=== PATIENT | male | born 1965 | race Caucasian/White ===

== ENCOUNTER 2018-02-06 20:28 | Observation (INO) | payer SELFPAY ==
--- NOTE | 2018-02-06 21:02 | RADIOLOGY REPORT (SQ) ---
EXAM DESCRIPTION: CHEST SINGLE VIEW COMPLETED DATE/TIME: 02/06/2018 8:49 pm REASON FOR STUDY: cp COMPARISON: 12/18/2011. EXAM PARAMETERS: NUMBER OF VIEWS: One view. TECHNIQUE: Single frontal radiographic view of the chest acquired. RADIATION DOSE: NA LIMITATIONS: None. FINDINGS: LUNGS AND PLEURA: No opacities, masses or pneumothorax. No pleural effusion. MEDIASTINUM AND HILAR STRUCTURES: No masses. Contour normal. HEART AND VASCULAR STRUCTURES: Heart normal in size. Normal vasculature. BONES: No acute findings. HARDWARE: None in the chest. OTHER: No other significant finding. IMPRESSION: NO ACUTE RADIOGRAPHIC FINDING IN THE CHEST. TECHNICAL DOCUMENTATION: JOB ID: [id number] [employer]- All Rights Reserved Reading location - IP/workstation name: [email or web address]
[2018-02-06 21:34] LABS: ABSOLUTE EOSINOPHILS # (AUTO) 0.1 10^3/uL (0.0-0.6); ABSOLUTE LYMPHOCYTES (AUTO) 1.6 10^3/uL (0.5-4.7); ABSOLUTE MONOCYTES (AUTO) 0.7 10^3/uL (0.1-1.4); ABSOLUTE NEUT (AUTO) 2.3 10^3/uL (1.7-8.2); BASOPHILS % (AUTO) 0.8 % (0-2); EOSINOPHILS % (AUTO) 1.8 % (0-6); HEMATOCRIT 43.8 % (37.9-51.0); HEMOGLOBIN 15.3 g/dL (13.5-17.0); LYMPHOCYTES % (AUTO) 34.3 % (13-45); MEAN CORPUSCULAR HEMOGLOBIN 29.8 pg (27.0-33.4); MEAN CORPUSCULAR VOLUME 85 fl (80-97); RED BLOOD COUNT 5.14 10^6/uL (4.35-5.55); RED CELL DISTRIBUTION WIDTH 13.6 % (11.5-14.0); SEGMENTED NEUTROPHILS % (AUTO) 49.1 % (42-78); TOTAL CELLS COUNTED % (AUTO) 100 %; WHITE BLOOD COUNT 4.6 10^3/uL (4.0-10.5)
[2018-02-06 21:35] LABS: PLATELET COUNT 91 10^3/uL (150-450)
[2018-02-06 21:53] LABS: ALANINE AMINOTRANSFERASE 45 U/L (21-72); ALBUMIN 4.3 g/dL (3.5-5.0); ALKALINE PHOSPHATASE 174 U/L (38-126); ANION GAP 10 (5-19); ASPARTATE AMINO TRANSFERASE 64 U/L (17-59); BILIRUBIN,DIRECT 0.3 mg/dL (0.0-0.4); BILIRUBIN,TOTAL 0.7 mg/dL (0.2-1.3); BLOOD UREA NITROGEN 9 mg/dL (7-20); CALCIUM 9.5 mg/dL (8.4-10.2); CARBON DIOXIDE 26 mmol/L (22-30); CHLORIDE 99 mmol/L (98-107); CREATINE KINASE 405 U/L (55-170); GLUCOSE 270 mg/dL (75-110); POTASSIUM 4.4 mmol/L (3.6-5.0); TOTAL PROTEIN 7.2 g/dL (6.3-8.2)
--- NOTE | 2018-02-06 22:02 | EKG REPORT ---
SEVERITY:- NORMAL ECG - SINUS RHYTHM : Confirmed by: Vy Mcclain 06-Feb-2018 22:01:54
[2018-02-06 22:04] LABS: CREATINE KINASE MB 1.17 ng/mL (<4.55)
--- NOTE | 2018-02-06 22:05 | ER Document Report ---
ED General - General Chief Complaint: Chest Pain Stated Complaint: CHEST PAIN Time Seen by Provider: 02/06/18 20:33 Mode of Arrival: Ambulatory Information source: Patient, Relative - /daughter TRAVEL OUTSIDE OF THE [place] IN LAST 30 DAYS: No - HPI Patient complains to provider of: chest pain Onset: This afternoon Onset/Duration: Sudden Quality of pain: Pressure Severity: Moderate Associated symptoms: Shortness of breath, Other - diaphoresis Exacerbated by: Other - mowing the lawn Similar symptoms previously: No Recently seen / treated by doctor: No Notes: 52-year-old obese diabetic hypertensive male presents emergency department for chest pain. He states that he was mowing the lawn around 130 today when he got pressure-like chest pain in the center of his chest radiating down his left arm associated with shortness of breath and diaphoresis. Patient states when he stopped mowing the lawn the pain seemed to subside. He states that he does not walk daily 3-4 miles and he did decide to go for his walk around 3 PM today. He states he got through half of it and the pain returned again. He stopped walking and went back home. He states he ate dinner around 5 and then for a third time during the day he got chest pressure again. 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 He states years ago he had a nuclear stress test. He has never had a cardiac catheterization. He is seen at [facility]. Does not drink at all. Patient has a heavy remote history of alcohol intake and he has esophageal varices. He states he does not take aspirin or anticoagulation for this. Patient does state that he has a history of a PE a few years back. - Related Data Allergies/Adverse Reactions: Iodinated Contrast- Oral and IV Dye [IV Dye, Iodine Containing] Allergy ( Verified 09/06/14 00:37) Past Medical History - General Information source: Patient, Relative - Social History Smoking Status: Never Smoker Chew tobacco use (# tins/day): No Frequency of alcohol use: None - patoient is an alcoholic and has been sober 20 + years Drug Abuse: None Lives with: Family Family History: DM, Hypertension, Malignancy Patient has suicidal ideation: No Patient has homicidal ideation: No - Past Medical History Cardiac Medical History: Reports: Hx Hypertension, Hx Pulmonary Embolism Denies: Hx Congestive Heart Failure, Hx Coronary Artery Disease, Hx DVT, Hx Heart Attack, Hx Peripheral Vascular Disease, Hx Heart Murmur Pulmonary Medical History: Reports: Other - PE Denies: Hx Tuberculosis EENT Medical History: Reports: None Neurological Medical History: Reports: None Endocrine Medical History: Reports: Hx Diabetes Mellitus Type 2 Renal/ Medical History: Reports: Hx Kidney Stones. Denies: Hx Peritoneal Dialysis GI Medical History: Reports: Hx Gastroesophageal Reflux Disease, Other - esophageal varices Musculoskeltal Medical History: Reports Hx Arthritis Psychiatric Medical History: Reports: Hx Depression - Immunizations Immunizations up to date: Yes Hx Diphtheria, Pertussis, Tetanus Vaccination: Yes Hx Pneumococcal Vaccination: 11/26/13 Review of Systems - Review of Systems Constitutional: Diaphoresis EENT: No symptoms reported Cardiovascular: See HPI Respiratory: See HPI Gastrointestinal: No symptoms reported Genitourinary: No symptoms reported Male Genitourinary: No symptoms reported Musculoskeletal: No symptoms reported Skin: No symptoms reported Hematologic/Lymphatic: No symptoms reported Neurological/Psychological: No symptoms reported Physical Exam - Vital signs Vitals: Resp 13 02/06/18 20:39 - Notes Notes: PHYSICAL EXAMINATION: GENERAL: Well-appearing, well-nourished and in no acute distress. No active chest pain when seen and examined HEAD: Atraumatic, normocephalic. EYES: Pupils equal round and reactive to light, extraocular movements intact, sclera anicteric, conjunctiva are normal. ENT: Nares patent, oropharynx clear without exudates. Moist mucous membranes. NECK: Normal range of motion, supple without lymphadenopathy LUNGS: Breath sounds clear to auscultation bilaterally and equal. No wheezes rales or rhonchi. HEART: Regular rate and rhythm without murmurs ABDOMEN: Obese, soft, nontender, nondistended abdomen. No guarding, no rebound. No masses appreciated. Musculoskeletal: Normal range of motion, no pitting or edema. No cyanosis. NEUROLOGICAL: Cranial nerves grossly intact. Normal speech, normal gait. Normal sensory, motor exams PSYCH: Normal mood, normal affect. SKIN: Warm, Dry, normal turgor, no rashes or lesions noted. Course - Re-evaluation Re-evalutation: 02/06/18 22:38 Patient aware of disposition and agreeable to the plan. Continues to be chest pain-free. 02/06/18 22:39 Labs- All tests 24 hr 02/06/18 02/06/18 02/06/18 21:05 21:05 21:05 WBC 4.6 RBC 5.14 Hgb 15.3 Hct 43.8 MCV 85 MCH 29.8 MCHC 35.0 RDW 13.6 Plt Count 91 L Seg Neutrophils % 49.1 Lymphocytes % 34.3 Monocytes % 14.0 H Eosinophils % 1.8 Basophils % 0.8 Absolute Neutrophils 2.3 Absolute Lymphocytes 1.6 Absolute Monocytes 0.7 Absolute Eosinophils 0.1 Absolute Basophils 0.0 Sodium 135.0 L Potassium 4.4 Chloride 99 Carbon Dioxide 26 Anion Gap 10 BUN 9 Creatinine 0.62 Est GFR ( Amer) > 60 Est GFR (Non-Af Amer) > 60 Glucose 270 H Calcium 9.5 Total Bilirubin 0.7 Direct Bilirubin 0.3 Neonat Total Bilirubin Not Reportable Neonat Direct Bilirubin Not Reportable Neonat Indirect Bili Not Reportable AST 64 H ALT 45 Alkaline Phosphatase 174 H Creatine Kinase 405 H CK-MB (CK-2) 1.17 Troponin I 0.060 Total Protein 7.2 Albumin 4.3 Chest X-Ray 02/06/18 20:33 IMPRESSION: NO ACUTE RADIOGRAPHIC FINDING IN THE CHEST. - Vital Signs Vital signs: Temp Pulse Resp BP Pulse Ox 19 138/80 H 100 02/06/18 21:02 02/06/18 21:02 02/06/18 21:02 - Laboratory Result Diagrams: 02/06/18 21:05 02/06/18 21:05 Laboratory results interpreted by me: 02/06/18 02/06/18 21:05 21:05 Plt Count 91 L Monocytes % 14.0 H Sodium 135.0 L Glucose 270 H AST 64 H Alkaline Phosphatase 174 H Creatine Kinase 405 H - EKG Interpretation by Ar EKG shows normal: Sinus rhythm - 91 When compared to previous EKG there are: No significant change Discharge - Discharge Clinical Impression: Chest heaviness, Obesity, Uncontrolled diabetes mellitus Disposition: ADMITTED OBSERVATION Admitting Provider: Hospitalist - Dr. Faustin Unit Admitted: Telemetry
[2018-02-06 22:08] LABS: TROPONIN I 0.06 ng/mL
[2018-02-06] MEDS ORDERED: NORMAL SALINE 1000 ML 1,000 ML IV ONE (22:13)
[2018-02-06] MEDS ORDERED: INSULIN REG, HUMAN 100 UNIT/ML 3 ML VIAL (PYX) SUBCUT ONE (22:33)
[2018-02-06] MEDS ORDERED: DEXTROSE 50%-WATER 25 GM/50 ML DISP.SYRIN IV PRN ×4 (22:54→23:03)
[2018-02-06] MEDS ORDERED: GLUCAGON,HUMAN RECOMB 1 MG INJ SUBCUT PRN (22:54)
[2018-02-06] MEDS ORDERED: DEXTROSE 40% GEL 15 GM TUBE PO PRN ×4 (22:54→23:03)
[2018-02-06] MEDS ORDERED: ACETAMINOPHEN 325 MG TABLET PO PRN (22:54)
[2018-02-06] MEDS ORDERED: PROMETHAZINE HCL INJ 25 MG/1 ML VIAL IV PRN (22:54)
[2018-02-06] MEDS ORDERED: GLUCAGON,HUMAN RECOMB 1 MG INJ IM PRN (23:03)
[2018-02-07 03:30] LABS: ANION GAP 10 (5-19); BLOOD UREA NITROGEN 9 mg/dL (7-20); CALCIUM 9.2 mg/dL (8.4-10.2); CARBON DIOXIDE 23 mmol/L (22-30); CHLORIDE 105 mmol/L (98-107); CHOLESTEROL 217.77 mg/dL (0-200); GLUCOSE 139 mg/dL (75-110); POTASSIUM 3.9 mmol/L (3.6-5.0); TRIGLYCERIDES 159 mg/dL (<150)
[2018-02-07 03:39] LABS: VLDL CHOLESTEROL 31.8 mg/dL (10-31)
[2018-02-07 03:41] LABS: DIRECT LDL 176 mg/dL (<100)
[2018-02-07 03:58] LABS: HEMATOCRIT 42.4 % (37.9-51.0); HEMOGLOBIN 14.8 g/dL (13.5-17.0); MEAN CORPUSCULAR HEMOGLOBIN 29.8 pg (27.0-33.4); MEAN CORPUSCULAR VOLUME 85 fl (80-97); RED BLOOD COUNT 4.98 10^6/uL (4.35-5.55); RED CELL DISTRIBUTION WIDTH 13.6 % (11.5-14.0)
[2018-02-07 03:59] LABS: PLATELET COUNT 84 10^3/uL (150-450)
[2018-02-07] MEDS ORDERED: HYDRALAZINE HCL INJ/PF 20 MG/1 ML SDV IV PRN (04:43)
--- NOTE | 2018-02-07 04:56 | PDOC H&P ---
History of Present Illness Admission Date/PCP: 02/06/18 22:49 Patient complains of: Several episodes of chest pain today. History of Present Illness: MICHEL YOST is a 52 year old male morbidly obese with history of hypertension, type 2 diabetes mellitus and hyperlipidemia, noncompliance with his medication for financial reasons was admitted with above-mentioned complaints. According to the patient, he started eeling chest pressure around 1 :30 PM after mowing his lawn for 10 minutes. The pain was radiating down his arm and up to his jaw. It was relieved when he rested. And later that afternoon, he went for his usual 3-4 miles walk but long term through he had to stop since he felt the same chest pressure. It was relieved after he went back home and rested. And around 7:00 - 8:00 PM, he started having chest pressure again while at rest. But this time his hands were sweaty and he felt nauseous but did not vomit. He also felt some shortness of breath, palpitations and lightheadedness but he denied any syncope. The patient apparently has also been having intermittent headaches and bloody nose in the last couple of weeks which he thinks it is due to probably elevated blood pressure. He denied any fever, chills, cough or sick contact or recent travels. He also denied any abdominal pain, diarrhea constipation or any urinary symptoms or focal deficits. He apparently had similar chest pain in the past for which he had a stress test which showed "blood clot" per patient (? referring to PE). He has history of alcoholism and esophageal varices but he never had any GI bleed. However, he was told not to take any anticoagulants so he refused to take aspirin. In the ED, he was hemodynamically stable. His initial troponin was 0.06 chest x- ray was unremarkable. His blood sugar was 270. He received 6 units humolog x1. He is currently chest pain free. Past Medical History Medical History: Other - According to the patient and based on previous records. Cardiac Medical History: Reports: None, Hypertension, Pulmonary Embolism Denies: Congestive Heart Failure, Coronary Artery Disease, DVT, Myocardial Infarction, Peripheral Vascular Disease, Heart Murmur Pulmonary Medical History: Reports: Other - PE Denies: Tuberculosis EENT Medical History: Reports: None Neurological Medical History: Reports: None Endocrine Medical History: Reports: Diabetes Mellitus Type 2 GI Medical History: Reports: Gastroesophageal Reflux Disease, Other - esophageal varices Musculoskeltal Medical History: Reports: Arthritis Psychiatric Medical History: Reports: Depression Past Surgical History Past Surgical History: Reports: None Social History Lives with: Family Smoking Status: Never Smoker Cigarettes Packs Per Day: 0 Frequency of Alcohol Use: None - To be an alcoholic but quit more than 20 years ago. Hx Recreational Drug Use: No Hx Prescription Drug Abuse: No - Advance Directive Resuscitation Status: Full Code Family History Family History: DM, Hypertension, Malignancy Parental Family History Reviewed: Yes - Brother: CAD post CABG 3 and type 2 diabetes. Children Family History Reviewed: No Sibling(s) Family History Reviewed.: Yes Medication/Allergy Home Medications: Oxycodone HCl [Oxy-Ir 5 mg Tablet] 5 mg PO Q6HP PRN #10 tab 09/06/14 Allergies/Adverse Reactions: Iodinated Contrast- Oral and IV Dye [IV Dye, Iodine Containing] Allergy ( Verified 09/06/14 00:37) Review of Systems ROS unobtainable: Other - Pertinent positives and negatives as detailed in the HPI. Physical Exam Vital Signs: Temp Pulse Resp BP Pulse Ox 19 138/80 H 100 02/06/18 21:02 02/06/18 21:02 02/06/18 21:02 General appearance: PRESENT: no acute distress, well-developed, well-nourished Head exam: PRESENT: atraumatic, normocephalic Eye exam: PRESENT: conjunctiva pink, PERRLA Mouth exam: PRESENT: moist, neck supple, tongue midline Neck exam: PRESENT: full ROM. ABSENT: JVD Respiratory exam: PRESENT: clear to auscultation lizandro. ABSENT: rales, rhonchi, wheezes Cardiovascular exam: PRESENT: RRR, +S1, +S2 Pulses: PRESENT: normal dorsalis pedis pul GI/Abdominal exam: PRESENT: normal bowel sounds, soft. ABSENT: distended, guarding, rebound, tenderness Rectal exam: PRESENT: deferred Neurological exam: PRESENT: alert, altered, awake, oriented to person, oriented to place, oriented to time, oriented to situation. ABSENT: motor sensory deficit Skin exam: PRESENT: dry, intact, warm. ABSENT: rash Results Laboratory Results: CBC: WBC 4.6, hemoglobin 15.3, hematocrit 43.8, MCV 85, RDW 13.6, platelets 91. CMP: Sodium 135, potassium 4.4, chloride 99, bicarb 26, anion gap 10, BUN 9, creatinine 0.62, glucose 270, calcium 9.5, AST 64, ALT 45, alk phos 174. Troponin 1: 0.06 EKG Comments: Lead EKG, sinus rhythm, ventricular rate 90, [place] 0, flat T-wave in lead III. Similar when compared to be previous 12-lead EKG on 09/06/2014 Impressions: Chest X-Ray 02/06/18 20:33 IMPRESSION: NO ACUTE RADIOGRAPHIC FINDING IN THE CHEST. Assessment & Plan - Diagnosis (1) Unstable angina Is this a current diagnosis for this admission?: Yes Plan: We will continue to cycle cardiac enzymes and repeat 12-lead EKG. We will also check echocardiogram and fasting lipid profile. If 2 negative troponins, he will have a nuclear stress test in a.m. He may need a cardiac cath. (2) Essential hypertension Is this a current diagnosis for this admission?: Yes Plan: Not on any blood pressure medications for financial reasons. We will continue to monitor his blood pressure and adjust BP meds as needed. IV hydralazine as needed. (3) Type 2 diabetes mellitus Qualifiers: Diabetes mellitus penitentiary insulin use: without intermodal dispatcher use Diabetes mellitus complication status: with unspecified complications Qualified Code(s) : E11.8 - Type 2 diabetes mellitus with unspecified complications Is this a current diagnosis for this admission?: Yes Plan: Michael check HbA1c and start Humalog sliding scale. (4) Thrombocytopenia Is this a current diagnosis for this admission?: Yes Plan: Possibly secondary to liver disease. The patient has history of alcoholism and esophageal varices. Will check liver ultrasound. - Time Time Spent: 50 to 70 Minutes Anticipated discharge: Home
[2018-02-07] MEDS: LANSOPRAZOLE 30 MG TAB.RAP.DR PO SCH ×2 (06:00→11:32)
--- NOTE | 2018-02-07 08:34 | RADIOLOGY REPORT (SQ) ---
EXAM DESCRIPTION: U/S ABDOMEN COMPLETE W/O DOP COMPLETED DATE/TIME: 02/07/2018 7:27 am REASON FOR STUDY: thrombocytopenia (questionable cirrhosis). COMPARISON: 12/19/2011. TECHNIQUE: Dynamic and static grayscale images acquired of the abdomen and recorded on PACS. Janeto delilah selected color Doppler and spectral images recorded. LIMITATIONS: Study limited due to acoustical interference from fat or from air in the bowel. FINDINGS: PANCREAS: Obscured. LIVER: Echotexture is coarse with increased echogenicity consistent with fatty infiltration. LIVER VASCULATURE: Normal directional flow of the main portal vein and hepatic veins. GALLBLADDER: No stones. Normal wall thickness. No pericholecystic fluid. ULTRASOUND-DETECTED MCGARRY'S SIGN: Negative. INTRAHEPATIC DUCTS AND COMMON DUCT: CBD and intrahepatic ducts normal caliber. No filling defects. INFERIOR VENA CAVA: Normal flow. AORTA: No aneurysm. RIGHT KIDNEY: Normal size. Normal echogenicity. No solid or suspicious masses. No hydronephrosis. No calcifications. LEFT KIDNEY: Normal size. Normal echogenicity. No solid or suspicious masses. No hydronephrosis. No calcifications. SPLEEN:Slightly enlarged, measuring 13.3 cm. No solid masses. PERITONEAL AND PLEURAL SPACES: No ascites or effusions. OTHER: No other significant finding. IMPRESSION: FATTY INFILTRATION OF THE LIVER. MILD SPLENOMEGALY. NO OTHER SIGNIFICANT FINDING IN TH E VISUALIZED ABDOMEN. TECHNICAL DOCUMENTATION: JOB ID: [id number] [employer]- All Rights Reserved Reading location - IP/workstation name: [email or web address]
[2018-02-07] MEDS ORDERED: ENOXAPARIN SODIUM INJ 40 MG/0.4 ML DISP.SYRIN SUBCUT SCH (10:00)
[2018-02-07] MEDS: INSULIN LISPRO 100 UNIT/ML 3 ML VIAL SUBCUT PRN ×3 (11:31→22:17)
--- NOTE | 2018-02-07 13:46 | DRAGON STRESS TEST REPORT ---
INTRAVENOUS LEXISCAN CARDIOLITE STRESS TEST USING SINGLE PHOTON EMMISION COMPUTERIZED TOMOGRAPHIC. DATE OF PROCEDURE: February 07, 2018, INDICATION : Diabetes, hypertension CARDIAC RISK FACTORS: Diabetes, hypertension, obesity RESTING EKG: Sinus rhythm without any baseline ST-T wave changes STRESS EKG: No significant changes noted with LexiScan bolus REASON FOR TERMINATION: Protocol. PROCEDURE REPORT: Baseline heart rate 89 beats per minute with blood pressure of 166/77. Patient had no significant complaints. Heart rate at 2 minutes post bolus 107 with a blood pressure of 171/78. 3 minutes post bolus heart rate 100 with blood pressure of 178/78. No significant EKG changes were noted. Patient had no significant complaints during the procedure or postprocedure. Patient injected with Aminophyllin 75 mg at 3 minutes or later after Lexiscan bolus. CONCLUSIONS: Normal EKG and hemodynamic response to IV LexiScan. NUCLEAR DATA: At rest the patient was given 15.95 millicuries of technetium 99 sestamibi injected intravenously. As per protocol rest gated SPECT images were obtained. On day of stress test, the patient was given intravenous LexiScan at a dose of 0.4 mg in 5 mL intravenously, followed by flush with normal saline. Subsequently the stress dose of 43.5 millicuries of technetium 99 sestamibi was injected intravenously. As per protocol stress gated images were obtained. NUCLEAR INTERPRETATION: Both raw and processed data were used for interpretation. Visual, qualitative, computer-generated quantitative data was used. There was good myocardial uptake of technetium compound. Motion artifact and soft tissue attenuations were noted. Increased visceral uptake was noted. An area of mild transient perfusion defect noted in stress imaging in the LV apex consistent with mild ischemia. No definitive areas of fixed perfusion defect or scars noted. EKG gated imaging showed LV EF at 59 %, rest and stress gated EF similar visually, no definite regional wall motion abnormalities were however noted. T. I D. ratio was 0.98. Lung heart ratio noted to be within normal limits 0.39. No significant extracardiac and abnormal radiotracer activities were noted. RV free wall uptake was noted to be WNL. IMPRESSION: Also refer to comments under nuclear interpretation. Also test results needs to be interpreted in the context of pretest probability. 1. An area of mild transient perfusion defect noted in stress imaging in the LV apex consistent with mild ischemia 2. There is no definitive scintigraphic evidence of myocardial infarction/scar. 3. EKG gated imaging shows left ventricular ejection fraction of approx. 59 %. 4. Clinical correlation requested as occasionally single vessel disease or balanced ischemia could be missed. In approximately 10% of the cases Lexiscan may not cause adequate vasodilatory stress. RECOMMENDATIONS: Aggressive risk factor modification and medical management. Further evaluation may be needed if continued symptoms or other high risk indicators are noted on clinical evaluation. May consider heart catheterization. Close cardiology follow-up is also recommended. Clinical correlation with echocardiogram derived ejection fraction. Inability to exercise by itself can lead to increased cardiovascular event risks. Consider cardiology consultation and or follow-up if clinically indicated. I am available for cardiology evaluation and consultation if requested by the wire spinner, unless patient already has a command post craftsman. ISABEL
[2018-02-07] MEDS ORDERED: REGADENOSON INJ 0.4 MG/5 ML DISP.SYRIN IV ONE (14:13)
[2018-02-07] MEDS ORDERED: AMINOPHYLLINE INJ/PF 250 MG/10 ML SDV IV ONE (14:13)
--- NOTE | 2018-02-07 17:40 | PDOC PROGRESS REPORT ---
Subjective Progress Note for:: 02/07/18 Subjective:: Patient is chest pain-free. When getting up to the restroom he is not having chest pain. He is eating and drinking without difficulty. No cough or fever or chills. Reticulocyte type chest pain. No abdominal pain nausea vomiting or diaphoresis today. Reason For Visit: CHEST PAIN Physical Exam Vital Signs: Temp Pulse Resp BP Pulse Ox 98.2 F 71 17 120/76 97 02/07/18 16:00 02/07/18 16:00 02/07/18 16:00 02/07/18 16:00 02/07/18 16:00 Intake & Output 02/06/18 02/07/18 02/08/18 06:59 06:59 06:59 Weight 127.3 kg 127.3 kg General appearance: PRESENT: no acute distress, cooperative, obese Eye exam: PRESENT: conjunctiva pink Ear exam: PRESENT: normal external ear exam Mouth exam: PRESENT: moist, neck supple Respiratory exam: PRESENT: clear to auscultation lizandro, unlabored. ABSENT: rales , rhonchi, wheezes Cardiovascular exam: PRESENT: RRR. ABSENT: systolic murmur Pulses: PRESENT: normal radial pulses GI/Abdominal exam: PRESENT: normal bowel sounds, soft. ABSENT: distended, guarding, tenderness Rectal exam: PRESENT: deferred Neurological exam: PRESENT: alert, awake, oriented to person, oriented to place , oriented to situation, CN II-XII grossly intact Psychiatric exam: PRESENT: appropriate affect. ABSENT: anxious Skin exam: PRESENT: dry, warm Results Laboratory Results: 02/07/18 02:55 02/07/18 02:55 02/07/18 02/07/18 02:55 02:55 WBC 5.0 RBC 4.98 Hgb 14.8 Hct 42.4 MCV 85 MCH 29.8 MCHC 35.0 RDW 13.6 Plt Count 84 L Sodium 138.0 Potassium 3.9 Chloride 105 Carbon Dioxide 23 Anion Gap 10 BUN 9 Creatinine 0.62 Est GFR ( Amer) > 60 Est GFR (Non-Af Amer) > 60 Glucose 139 H Calcium 9.2 Magnesium 1.8 Triglycerides 159 H Cholesterol 217.77 H LDL Cholesterol Direct 176 H VLDL Cholesterol 31.8 H HDL Cholesterol 34 L 02/07/18 02/07/18 02:55 11:38 Troponin I 0.051 0.024 Impressions: Chest X-Ray 02/06/18 20:33 IMPRESSION: NO ACUTE RADIOGRAPHIC FINDING IN THE CHEST. Abdomen Ultrasound 02/07/18 00:00 IMPRESSION: FATTY INFILTRATION OF THE LIVER. MILD SPLENOMEGALY. NO OTHER SIGNIFICANT FINDING IN THE VISUALIZED ABDOMEN. Assessment & Plan - Diagnosis (1) Coronary artery disease Qualifiers: Coronary Disease-Associated Artery/Lesion type: [place] artery Is this a current diagnosis for this admission?: Yes Plan: Patient had a small area of reversible ischemia. May have single-vessel disease. Is currently stable. Troponins have been negative. Cardiology has been consulted. We will treat his hyperlipidemia. Patient is reluctant to take an aspirin secondary to history of liver disease and he believes that he has a history of varices. Will consider cardiac catheterization but will discuss first with the supervisor inspection and testing. (2) Obesity Is this a current diagnosis for this admission?: Yes Plan: We will offer weight loss counseling tomorrow given his complications potentially related to this-diabetes, coronary artery disease (3) Thrombocytopenia Is this a current diagnosis for this admission?: Yes Plan: Stable low. Possibly related to liver disease from history of alcohol abuse. This may present a problem if patient needs to use aspirin for coronary artery disease. (4) Type 2 diabetes mellitus Is this a current diagnosis for this admission?: Yes Plan: Hemoglobin A1c elevated, metformin is on hold, patient is currently on lispro. Continue with diabetic diet. Will group therapy counselor on the importance of weight loss. (5) Hyperlipidemia Is this a current diagnosis for this admission?: Yes Plan: He has been on low-dose lovastatin. Will start atorvastatin 20 mg daily for better control.. (6) HTN (hypertension) Is this a current diagnosis for this admission?: Yes Plan: Stable now. Will restart his lisinopril. - Time Time Spent with patient: 25-34 minutes Medications reviewed and adjusted accordingly: Yes Anticipated discharge: Home - Inpatient Certification Based on my medical assessment, after consideration of the patient's comorbidities, presenting symptoms, or acuity I expect that the services needed warrant INPATIENT care.: Yes I certify that my determination is in accordance with my understanding of Medicare's requirements for reasonable and necessary INPATIENT services [42 CFR 412.3e].: Yes Medical Necessity: Risk of Complication if Not Cared For in Hospital
--- NOTE | 2018-02-07 18:21 | XCELERA REPORT ---
[address] [address] Transthoracic Echocardiogram Report Name: MICHEL YOST Age: 52 yrs Gender: Male : 1965 Patient Status: Inpatient Patient Location: [address] [place] [address] Study Date: 02/07/2018 10:47 AM Height: 70 in Weight: 280 lb BSA: 2.4 m2 Procedure: A complete two-dimensional transthoracic echocardiogram was performed (2D, M-mode, spectral and color flow Doppler). The study was technically difficult with many images being suboptimal in quality. Reason For Study: chest pain Ordering Physician: ORIN GLASS Performed By: Tish Duenas Interpretation Summary The left ventricular ejection fraction is normal. Doppler measurements suggest pseudonormalized left ventricular relaxation, which is associated with grade II/IV or mild to moderate diastolic dysfunction There is borderline concentric left ventricular hypertrophy. The left ventricle is grossly normal size. Regional wall motion abnormalities cannot be excluded due to limited visualization. [place] not well visualised. The right ventricular systolic function is normal. The right atrium is normal in size The left atrial size is normal. There is a trace amount of mitral regurgitation There is no mitral valve stenosis. There is no aortic valve stenosis No aortic regurgitation is present. There is no tricuspid stenosis. No tricuspid regurgitation. The aortic root is not well visualized. The inferior vena cava was not visualized There is no pericardial effusion. MMode/2D Measurements & Calculations RVDd: 3.0 cm LVIDd: 5.0 cm FS: 34.3 % Ao root diam: 2.7 cm IVSd: 0.99 cm LVIDs: 3.3 cm EDV(Teich): 119.3 ml LVPWd: 1.0 cm ESV(Teich): 44.0 ml Ao root area: 5.7 cm2 EF(Teich): 63.1 % LA dimension: 3.5 cm Doppler Measurements & Calculations MV E max anika: MV P1/2t max anika: Ao V2 max: LV V1 max P.4 cm/sec 93.8 cm/sec 158.1 cm/sec 7.2 mmHg MV A max anika: MV P1/2t: 62.1 msec Ao max PG: LV V1 max: 116.0 cm/sec 10.0 mmHg 133.9 cm/sec MV E/A: 0.81 MVA(P1/2t): 3.5 cm2 MV dec slope: 442.5 cm/sec2 PA V2 max: 141.3 cm/sec PA max P.0 mmHg Left Ventricle The left ventricle is grossly normal size. There is borderline concentric left ventricular hypertrophy. The left ventricular ejection fraction is normal. Doppler measurements suggest pseudonormalized left ventricular relaxation, which is associated with grade II/IV or mild to moderate diastolic dysfunction. Regional wall motion abnormalities cannot be excluded due to limited visualization. [place] not well visualised. Right Ventricle The right ventricle is grossly normal size. The right ventricular systolic function is normal. Atria The right atrium is normal in size. The left atrial size is normal. Interarterial septum not well visualized and not well dopplered. Cannot comment on ASD/PFO presence. Mitral Valve There is mild mitral annular calcification. There is no mitral valve stenosis. There is a trace amount of mitral regurgitation. Aortic Valve The aortic valve is not well visualized secondary to technical limitations. There is no aortic valve stenosis. No aortic regurgitation is present. Tricuspid Valve The tricuspid valve is not well visualized secondary to technical limitations. There is no tricuspid stenosis. No tricuspid regurgitation. Pulmonic Valve The pulmonic valve is not well visualized. Great Vessels The aortic root is not well visualized. The inferior vena cava was not visualized. Effusions There is no pericardial effusion. : ORIN GLASS > Vy Mcclain
[2018-02-07] MEDS ORDERED: ATORVASTATIN CALCIUM 20 MG TABLET PO ONE (18:30)
[2018-02-07] MEDS ORDERED: OXYCODONE-ACETAMINOPHEN 5-325 MG TABLET PO PRN (18:40)
[2018-02-07] MEDS ORDERED: OXYCODONE HCL IR 5 MG TABLET PO PRN (18:41)
--- NOTE | 2018-02-07 20:32 | PDOC CONSULTATION ---
Consultation Consult Date: 02/07/18 Attending physician:: BOOGIE FLORES Consult reason:: Chest pain History of Present Illness Admission Date/PCP: 02/06/18 22:49 Patient complains of: Chest pain History of Present Illness: MICHEL YOST is a 52 year old male morbidly obese with history of hypertension, type 2 diabetes mellitus and hyperlipidemia, noncompliance with his medication for financial reasons was admitted with above-mentioned complaints. According to the patient, he started eeling chest pressure around 1 :30 PM after mowing his lawn for 10 minutes. The pain was radiating down his arm and up to his jaw. It was relieved when he rested. And later that afternoon, he went for his usual 3-4 miles walk but nursing home through he had to stop since he felt the same chest pressure. It was relieved after he went back home and rested. And around 7:00 - 8:00 PM, he started having chest pressure again while at rest. But this time his hands were sweaty and he felt nauseous but did not vomit. He also felt some shortness of breath, palpitations and lightheadedness but he denied any syncope. The patient apparently has also been having intermittent headaches and bloody nose in the last couple of weeks which he thinks it is due to probably elevated blood pressure. He denied any fever, chills, cough or sick contact or recent travels. He also denied any abdominal pain, diarrhea constipation or any urinary symptoms or focal deficits. He apparently had similar chest pain in the past for which he had a stress test which showed "blood clot" per patient (? referring to PE). He has history of alcoholism and esophageal varices but he never had any GI bleed. However, he was told not to take any anticoagulants so he refused to take aspirin. In the ED, he was hemodynamically stable. His initial troponin was 0.06 chest x- ray was unremarkable. His blood sugar was 270. He received 6 units humolog x1. He is currently chest pain free. This history was reviewed and confirmed. Patient does give good history of unstable angina. His troponin I are noted to be abnormal in the indeterminate range. Past Medical History Cardiac Medical History: Reports: None, Hypertension, Pulmonary Embolism Denies: Congestive Heart Failure, Coronary Artery Disease, DVT, Myocardial Infarction, Peripheral Vascular Disease, Heart Murmur Pulmonary Medical History: Reports: Other - PE Denies: Tuberculosis EENT Medical History: Reports: None Neurological Medical History: Reports: None Endocrine Medical History: Reports: Diabetes Mellitus Type 2 GI Medical History: Reports: Gastroesophageal Reflux Disease, Other - esophageal varices Musculoskeltal Medical History: Reports: Arthritis Psychiatric Medical History: Reports: Depression Past Surgical History Past Surgical History: Reports: None Social History Information Source: Patient Lives with: Family Smoking Status: Never Smoker Cigarettes Packs Per Day: 0 Frequency of Alcohol Use: None - To be an alcoholic but quit more than 20 years ago. Hx Recreational Drug Use: No Drugs: None Hx Prescription Drug Abuse: No - Advance Directive Resuscitation Status: Full Code Surrogate healthcare decision maker:: Patient's is the surrogate decision-maker Family History Family History: DM, Hypertension, Malignancy Parental Family History Reviewed: Yes Children Family History Reviewed: Yes Sibling(s) Family History Reviewed.: Yes Medication/Allergy Home Medications: Lisinopril [Prinivil 5 mg Tablet] 5 mg PO DAILY 02/07/18 Atorvastatin Calcium [Lipitor 20 mg Tablet] 20 mg PO QHS tablet 02/08/18 Insulin Lispro [Humalog Insulin (Lispro) 100 unit/mL] 0 - 12 unit SUBCUT ACHSP PRN unit 02/08/18 Lansoprazole [Prevacid 30 mg Odt Tablet] 30 mg PO Q6AM tab.rap. 02/08/18 Oxycodone HCl [Oxy-Ir 5 mg Tablet] 2.5 mg PO Q8HP PRN tablet 02/08/18 Promethazine HCl [Phenergan Inj 25 mg/1 ml Vial] 12.5 mg IV Q4HP PRN vial 02/08 Allergies/Adverse Reactions: Iodinated Contrast- Oral and IV Dye [IV Dye, Iodine Containing] Allergy ( Verified 09/06/14 00:37) Review of Systems Review of Systems: Please see history of present illness and past medical history as wall. Constitutional: No fever or chills reported. Head : No recent chronic headaches, recent head injury. Eyes: No recent eye pain, diplopia, redness, discharge, acute visual changes. Ears: No recent chronic ear pain, acute hearing loss, ear discharge. Oral cavity: No recent ulcerations, bleeding, oral cavity discomfort. Neck: No recent acute neck pain reported. Hematologic: No recent easy bruising or bleeding or hematologic malignancy reported. Lymphatic: No recent lymphatic malignancy, chronic lymphadenopathy reported yet Cardiovascular system review: See history of present illness. Respiratory system review: No recent chronic cough, hemoptysis, blood clots in the lungs reported. Mild Shortness of breath on exertion Gastrointestinal system review: Negative for any recent acute or chronic abdominal pain, hematemesis, melena, recent change in bowel habits. Genitourinary system review: No recent acute or chronic hematuria, flank pain, UTI etc. reported. Skin system review: Negative for any recent abnormal bruising, no rash, no pruritus reported. Neurologic: No prior history of strokes, mini strokes, seizure disorder. Psychologic: No history of major psychosis or major depression reported. Musculoskeletal: Minor aches and pains reported. No acute joint swelling reported. Endocrine: No recent polyuria, polydipsia, recent heat or cold intolerance. Physical Exam Vital Signs: Temp Pulse Resp BP Pulse Ox 98.2 F 71 17 120/76 97 02/07/18 16:00 02/07/18 16:00 02/07/18 16:00 02/07/18 16:00 02/07/18 16:00 Intake & Output 02/06/18 02/07/18 02/08/18 06:59 06:59 06:59 Intake Total 1640 Balance 1640 Weight 127.3 kg 127.3 kg Exam: GENERAL: well-nourished and in no acute distress. Alert and oriented x3 HEAD: Atraumatic, normocephalic. EYES: Pupils equal round and reactive to light, extraocular movements intact, sclera anicteric, conjunctiva are normal. ENT: TMs normal, nares patent, oropharynx clear without exudates. Moist mucous membranes. No oral ulcerations or bleeding gums noted NECK: supple without lymphadenopathy. Trachea is central. No cervical or axillary lymphadenopathy noted. Carotids are 2+, JVD WNL LUNGS: Respiration seems nonlabored, no significant accessory muscle action noted. Breath sounds clear to auscultation bilaterally and equal noted. No wheezes rales or rhonchi noted. No significant dullness noted on percussion. CHEST: Palpation of the chest wall shows no significant chest wall tenderness. No other significant abnormalities noted. 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 ABDOMEN: Soft, no significant tenderness appreciated, normoactive bowel sounds. No guarding, no rebound. No rigidity noted . No masses appreciated. EXTREMITIES: Pedal pulses are 1-2+, no calf tenderness noted. No clubbing or cyanosis.trace pedal edema noted NEUROLOGICAL: Focused neurological exam showed no significant neurologic deficit. Normal speech, no focal weakness appreciated. PSYCH: Normal mood, normal affect. Judgment and insight within normal limits. SKIN: No significant ecchymosis, skin is noted to be warm. MUSCULOSKELETAL EXAM: No significant acute joint swelling noted. Results Laboratory Results: 02/07/18 02:55 02/07/18 02:55 02/07/18 02/07/18 02:55 02:55 WBC 5.0 RBC 4.98 Hgb 14.8 Hct 42.4 MCV 85 MCH 29.8 MCHC 35.0 RDW 13.6 Plt Count 84 L Sodium 138.0 Potassium 3.9 Chloride 105 Carbon Dioxide 23 Anion Gap 10 BUN 9 Creatinine 0.62 Est GFR ( Amer) > 60 Est GFR (Non-Af Amer) > 60 Glucose 139 H Calcium 9.2 Magnesium 1.8 Triglycerides 159 H Cholesterol 217.77 H LDL Cholesterol Direct 176 H VLDL Cholesterol 31.8 H HDL Cholesterol 34 L 02/07/18 02/07/18 02/07/18 02:55 11:38 17:50 Troponin I 0.051 0.024 0.020 EKG Comments: Shows sinus rhythm. No acute ST-T wave changes noted. Impressions: Chest X-Ray 02/06/18 20:33 IMPRESSION: NO ACUTE RADIOGRAPHIC FINDING IN THE CHEST. Abdomen Ultrasound 02/07/18 00:00 IMPRESSION: FATTY INFILTRATION OF THE LIVER. MILD SPLENOMEGALY. NO OTHER SIGNIFICANT FINDING IN THE VISUALIZED ABDOMEN. Assessment & Plan - Diagnosis (1) Chest heaviness Is this a current diagnosis for this admission?: Yes (2) Coronary artery disease Qualifiers: Coronary Disease-Associated Artery/Lesion type: [place] artery Is this a current diagnosis for this admission?: Yes (3) Essential hypertension Is this a current diagnosis for this admission?: Yes (4) HTN (hypertension) Qualifiers: Hypertension type: essential hypertension Qualified Code(s): I10 - Essential (primary) hypertension Is this a current diagnosis for this admission?: Yes (5) Hyperlipidemia Qualifiers: Hyperlipidemia type: unspecified Qualified Code(s): E78.5 - Hyperlipidemia , unspecified Is this a current diagnosis for this admission?: Yes (6) Thrombocytopenia Is this a current diagnosis for this admission?: Yes (7) Type 2 diabetes mellitus Qualifiers: Diabetes mellitus buttermaker insulin use: unspecified [facility]p insulin use status Is this a current diagnosis for this admission?: Yes - Notes Notes: Chest pain: Patient describes good history of unstable angina. Patient did undergo a nuclear stress test which showed apical ischemia. 2D echocardiogram shows relatively well-preserved LV function with suspicion of apical wall motion abnormalities. [place] however was not well-visualized. Nuclear stress test results were discussed in detail with the patient. It was felt that best option would be to send patient for heart catheterization. It was felt this would be the best management plan. This was presented to the patient and is agreeable for transfer. He would however like to have his heart catheterization done at [facility]. Hypertension: Reasonably well controlled. Blood pressure goal in this patient is 135/85 or less. This was discussed with the patient. Currently blood pressure under reasonable control. Better medication for this patient are ELLIE inhibitor/ARB/beta bill etc. discussed side effects of uncontrolled hypertension and also severe hypotension. Hyperlipidemia: LDL goal is less than 70. Recommend statin therapy at least intermediate or high dose, of high potency status. Periodic lipid panel and liver panel is indicated. Patient to report any significant muscle discomfort or other side effects. Diabetes: Recommend good control of blood sugar. However should avoid any hypoglycemia and hyperglycemia. Patient being expertly managed by primary care M.D/hospitalist - Time Time Spent: 30 to 50 Minutes - CODE STATUS was discussed, patient remains full code. Surrogate decision-maker unchanged. Multiple medical problems were addressed. More than 50% of the time spent coordinating care, discussing management plans with involved caregivers. Management plans discussed with involved personnels. Medical decision making was of moderate to high complexity , patient's has multiple comorbidities. Medications reviewed and adjusted accordingly: Yes
[2018-02-08 08:59] VITALS: BP 134/69
[2018-02-08] MEDS ORDERED: LISINOPRIL 5 MG TABLET PO SCH (10:00)
--- NOTE | 2018-02-08 10:18 | EKG REPORT ---
SEVERITY:- NORMAL ECG - SINUS RHYTHM : Confirmed by: Vy Mcclain 08-Feb-2018 10:17:27
--- NOTE | 2018-02-08 10:33 | PDOC DISCHARGE SUMMARY ---
General - Admit/Disc Date/PCP Admission Date/Primary Care Provider: 02/06/18 22:49 Discharge Date: 02/08/18 - Discharge Diagnosis (1) Coronary artery disease Is this a current diagnosis for this admission?: Yes Summary: Patient presented with angina. He had a stress test which shows some apical ischemia. He is being transferred to [facility] for cardiac catheterization. He is hemodynamically stable and chest pain-free now. (2) Obesity Is this a current diagnosis for this admission?: Yes Summary: Weight loss has been recommended so as to prevent further complications related to obesity. (3) Thrombocytopenia Is this a current diagnosis for this admission?: Yes Summary: It has chronic stable thrombocytopenia. Possibly due to alcoholic liver disease. The patient is no longer using alcohol though does state that he has a history of EGD which showed varices. He has not had an upper GI bleed as far as he can recall. (4) Type 2 diabetes mellitus Is this a current diagnosis for this admission?: Yes Summary: Patient is on metformin at home. He is using bolus short acting insulin while in the hospital. He should have a meal dose added to his AC bolus insulin. He may need a long-acting agent during the hospitalization. (5) Hyperlipidemia Is this a current diagnosis for this admission?: Yes Summary: Patient is started on a statin. (6) HTN (hypertension) Is this a current diagnosis for this admission?: Yes Summary: Blood pressure is within acceptable range currently. Will be monitored closely and blood pressure medications will be titrated or added as indicated. - Additional Information Resuscitation Status: Full Code Discharge Diet: Cardiac Discharge Activity: Other - bedrest with bathroom privileges Home Medications: Lisinopril [Prinivil 5 mg Tablet] 5 mg PO DAILY 02/07/18 Atorvastatin Calcium [Lipitor 20 mg Tablet] 20 mg PO QHS tablet 02/08/18 Insulin Lispro [Humalog Insulin (Lispro) 100 unit/mL] 0 - 12 unit SUBCUT ACHSP PRN unit 02/08/18 Lansoprazole [Prevacid 30 mg Odt Tablet] 30 mg PO Q6AM tab 02/08/18 Oxycodone HCl [Oxy-Ir 5 mg Tablet] 2.5 mg PO Q8HP PRN tablet 02/08/18 Promethazine HCl [Phenergan Inj 25 mg/1 ml Vial] 12.5 mg IV Q4HP PRN vial 02/08 History of Present Illness Patient complains of: Currently pain-free, his presenting complaint was chest discomfort. History of Present Illness: MICHEL YOST is a 52 year old male whose history of present illness from hospital admission is noted below: MICHEL YOST is a 52 year old male morbidly obese with history of hypertension, type 2 diabetes mellitus and hyperlipidemia, noncompliance with his medication for financial reasons was admitted with above-mentioned complaints. According to the patient, he started eeling chest pressure around 1 :30 PM after mowing his lawn for 10 minutes. The pain was radiating down his arm and up to his jaw. It was relieved when he rested. And later that afternoon, he went for his usual 3-4 miles walk but longterm through he had to stop since he felt the same chest pressure. It was relieved after he went back home and rested. And around 7:00 - 8:00 PM, he started having chest pressure again while at rest. But this time his hands were sweaty and he felt nauseous but did not vomit. He also felt some shortness of breath, palpitations and lightheadedness but he denied any syncope. The patient apparently has also been having intermittent headaches and bloody nose in the last couple of weeks which he thinks it is due to probably elevated blood pressure. He denied any fever, chills, cough or sick contact or recent travels. He also denied any abdominal pain, diarrhea constipation or any urinary symptoms or focal deficits. He apparently had similar chest pain in the past for which he had a stress test which showed "blood clot" per patient (? referring to PE). He has history of alcoholism and esophageal varices but he never had any GI bleed. However, he was told not to take any anticoagulants so he refused to take aspirin. In the ED, he was hemodynamically stable. His initial troponin was 0.06 chest x- ray was unremarkable. His blood sugar was 270. He received 6 units humolog x1. He is currently chest pain free. Hospital Course Hospital Course: This 52-year-old man was admitted to the hospital secondary to chest pain with a story consistent with angina. He also has underlying obesity, hypertension, diabetes, hyperlipidemia. Patient had negative troponins. He underwent stress testing which showed an apical reversible defect. He has spoken with me and the urology physician about his stress test results. He states understanding and is willing to be transferred to undergo cardiac catheterization to better evaluate the area and for possible stenting if indicated. We have been treating the patient's hypertension and diabetes along with his hyperlipidemia, treatment already noted. Patient has a history of alcohol abuse and per his report he has undergone EGD in the past which showed esophageal varices, he also has chronic thrombocytopenia, no active bleeding. He is hemodynamically stable for discharge. Physical Exam Vital Signs: Temp Pulse Resp BP Pulse Ox 98.1 F 63 12 134/69 H 97 02/08/18 07:50 02/08/18 07:50 02/08/18 07:50 02/08/18 07:50 02/08/18 07:50 Intake & Output 02/07/18 02/08/18 02/09/18 06:59 06:59 07:59 Intake Total 2790 Balance 2790 Weight 127.3 kg 127.3 kg General appearance: PRESENT: no acute distress, cooperative, obese Eye exam: PRESENT: conjunctiva pink, EOMI Mouth exam: PRESENT: moist, neck supple, tongue midline Respiratory exam: PRESENT: clear to auscultation lizandro, unlabored. ABSENT: rales , rhonchi, wheezes Pulses: PRESENT: normal radial pulses GI/Abdominal exam: PRESENT: normal bowel sounds, soft. ABSENT: distended, guarding, tenderness Neurological exam: PRESENT: alert, awake, oriented to person, oriented to place , oriented to situation, CN II-XII grossly intact Psychiatric exam: PRESENT: appropriate affect. ABSENT: anxious Skin exam: PRESENT: dry, warm Results Laboratory Results: 02/07/18 02:55 02/07/18 02:55 02/07/18 02/07/18 02/07/18 02:55 11:38 17:50 Troponin I 0.051 0.024 0.020 Impressions: Chest X-Ray 02/06/18 20:33 IMPRESSION: NO ACUTE RADIOGRAPHIC FINDING IN THE CHEST. Abdomen Ultrasound 02/07/18 00:00 IMPRESSION: FATTY INFILTRATION OF THE LIVER. MILD SPLENOMEGALY. NO OTHER SIGNIFICANT FINDING IN THE VISUALIZED ABDOMEN. Qualifiers - * PATEINT BEING DISCHARGED WITH ANY OF THE FOLLOWING DIAGNOSIS?: No Plan Discharge Plan: Discharge to [facility] for cardiac catheterization. Time Spent: Greater than 30 Minutes - Discharge included discussion with urology physician about patient's stress test and plan for transfer. I also collaborated with the patient's nurse. I have seen, reviewed and examined the patient as well.
[2018-02-08] MEDS ORDERED: ATORVASTATIN CALCIUM 20 MG TABLET PO SCH (22:00)
--- NOTE | 2018-02-09 12:38 | PDOC PROGRESS REPORT ---
Subjective Progress Note for:: 02/08/18 Subjective:: Patient was seen yesterday on rounds. Patient had done well without any recurrence of chest pain. He however has not ambulated much. Nuclear stress test results were again reviewed with the patient. He was noted to have apical ischemia. Patient history was reviewed. He gives history, which is very suggestive of unstable angina pattern. Given nuclear stress test being positive and patient planning to join new work which might include heavy work, it was felt that it will be worthwhile to send patient for heart catheterization for defining coronary anatomy and coronary intervention if needed. In this regard I gave [facility] a call and spoke with electronic funds transfer coordinator and Dr. Miller, who kindly accepted the patient in transfer. Patient medications were optimized. Reason For Visit: CHEST PAIN Physical Exam Vital Signs: Temp Pulse Resp BP Pulse Ox 98.1 F 63 12 134/69 H 97 02/08/18 07:50 02/08/18 07:50 02/08/18 07:50 02/08/18 07:50 02/08/18 07:50 Intake & Output 02/08/18 02/09/18 02/10/18 05:59 06:59 06:59 Intake Total Balance Weight Exam: GENERAL: well-nourished and in no acute distress. Alert and oriented x3 HEAD: Atraumatic, normocephalic. EYES: Pupils equal round and reactive to light, extraocular movements intact, sclera anicteric, conjunctiva are normal. ENT: TMs normal, nares patent, oropharynx clear without exudates. Moist mucous membranes. No oral ulcerations or bleeding gums noted NECK: supple without lymphadenopathy. Trachea is central. No cervical or axillary lymphadenopathy noted. Carotids are 2+, JVD WNL LUNGS: Respiration seems nonlabored, no significant accessory muscle action noted. Breath sounds clear to auscultation bilaterally and equal noted. No wheezes rales or rhonchi noted. No significant dullness noted on percussion. CHEST: Palpation of the chest wall shows no significant chest wall tenderness. No other significant abnormalities noted. 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 ABDOMEN: Soft, no significant tenderness appreciated, normoactive bowel sounds. No guarding, no rebound. No rigidity noted . No masses appreciated. EXTREMITIES: Pedal pulses are 1-2+, no calf tenderness noted. No clubbing or cyanosis.trace to 1+ pedal edema noted NEUROLOGICAL: Focused neurological exam showed no significant neurologic deficit. Normal speech, no focal weakness appreciated. PSYCH: Normal mood, normal affect. Judgment and insight within normal limits. SKIN: No significant ecchymosis, skin is noted to be warm. MUSCULOSKELETAL EXAM: No significant acute joint swelling noted. Results Laboratory Results: 02/07/18 02:55 02/07/18 02:55 02/07/18 02/07/18 02/07/18 02:55 11:38 17:50 Troponin I 0.051 0.024 0.020 EKG Comments: Twelve-lead EKG shows sinus rhythm without any acute ST-T wave changes. Impressions: Chest X-Ray 02/06/18 20:33 IMPRESSION: NO ACUTE RADIOGRAPHIC FINDING IN THE CHEST. Abdomen Ultrasound 02/07/18 00:00 IMPRESSION: FATTY INFILTRATION OF THE LIVER. MILD SPLENOMEGALY. NO OTHER SIGNIFICANT FINDING IN THE VISUALIZED ABDOMEN. Assessment & Plan - Diagnosis (1) Chest heaviness Is this a current diagnosis for this admission?: Yes (2) Coronary artery disease Qualifiers: Coronary Disease-Associated Artery/Lesion type: red cliff artery Is this a current diagnosis for this admission?: Yes (3) Essential hypertension Is this a current diagnosis for this admission?: Yes (4) HTN (hypertension) Qualifiers: Hypertension type: essential hypertension Qualified Code(s): I10 - Essential (primary) hypertension Is this a current diagnosis for this admission?: Yes (5) Hyperlipidemia Qualifiers: Hyperlipidemia type: unspecified Qualified Code(s): E78.5 - Hyperlipidemia , unspecified Is this a current diagnosis for this admission?: Yes (6) Thrombocytopenia Is this a current diagnosis for this admission?: Yes (7) Type 2 diabetes mellitus Qualifiers: Diabetes mellitus nursing home insulin use: unspecified nursing home insulin use status Is this a current diagnosis for this admission?: Yes - Notes Notes: Arranged for transfer to [facility] for heart catheterization. Accepting physician Dr. Miller. Chest pain: Patient describes good history of unstable angina. Patient did undergo a nuclear stress test which showed apical ischemia. 2D echocardiogram shows relatively well-preserved LV function with suspicion of apical wall motion abnormalities. [place] however was not well-visualized. Nuclear stress test results were discussed in detail with the patient. It was felt that best option would be to send patient for heart catheterization. It was felt this would be the best management plan. This was presented to the patient and is agreeable for transfer. He would however like to have his heart catheterization done at [facility]. Hypertension: Reasonably well controlled. Blood pressure goal in this patient is 135/85 or less. This was discussed with the patient. Currently blood pressure under reasonable control. Better medication for this patient are ELLIE inhibitor/ARB/beta bill etc. discussed side effects of uncontrolled hypertension and also severe hypotension. Hyperlipidemia: LDL goal is less than 70. Recommend statin therapy at least intermediate or high dose, of high potency status. Periodic lipid panel and liver panel is indicated. Patient to report any significant muscle discomfort or other side effects. Diabetes: Recommend good control of blood sugar. However should avoid any hypoglycemia and hyperglycemia. Patient being expertly managed by primary care M.D/hospitalist. [place] transfer papers were completed. Case discussed with Dr. Miller. Patient to be transferred when bed available. - Time Time with patient: Greater than 35 minutes - Total time involved in the care of this patient was more than 35 minutes. Time spent discussing case with accepting delicatessen goods stock clerk at tertiary care and also with the electronic funds transfer coordinator at [facility]. Discussed rationale for pursuing heart catheterization with the patient and hospitalist. Patient agreeable with this management plan. Medications reviewed and adjusted accordingly: Yes
== END 2018-02-08 11:54 | disposition short-term general hospital (02) ==
LOC: ER 20:28 → EH 22:49 → 5 02-07 00:32
PROVIDERS: ADMIT Internal Medicine Geriatric Medicine; ATTEND Internal Medicine Geriatric Medicine
DX: I25.110 Atherosclerotic heart disease of native coronary artery with unstable angina pectoris (principal); E66.01 Morbid (severe) obesity due to excess calories; D69.6 Thrombocytopenia, unspecified; E11.65 Type 2 diabetes mellitus with hyperglycemia; E78.5 Hyperlipidemia, unspecified; I10 Essential (primary) hypertension; R51 Headache; R04.0 Epistaxis; K21.9 Gastro-esophageal reflux disease without esophagitis; I85.00 Esophageal varices without bleeding; F10.21 Alcohol dependence, in remission; Z91.14 Patient's other noncompliance with medication regimen; Z56.0 Unemployment, unspecified; Z59.9 Problem related to housing and economic circumstances, unspecified; Z86.711 Personal history of pulmonary embolism; Z82.49 Family history of ischemic heart disease and other diseases of the circulatory system; Z87.442 Personal history of urinary calculi; Z68.41 Body mass index [BMI] 40.0-44.9, adult
CPT/HCPCS: 93005 ×2; 99285; 96360; 36415 ×2; 82553; 82962 ×3; 82550; 83735; 85025; 85027; 80048; 80053; 84484 ×2; 83036; 80061; 93306; 93017; 71045; 76700; 78452; 93010 ×2; G0378 ×3; A9500; J2785; J1815 ×2; J7030; J0280; Q9969

== ENCOUNTER 2018-03-01 11:41 | Emergency (ER) | payer SELFPAY ==
[2018-03-01] MEDS ORDERED: ASPIRIN 81 MG TABLET, CHEWABLE PO ONE (12:01)
--- NOTE | 2018-03-01 12:32 | ER Document Report ---
ED General - General Chief Complaint: Chest Pain Stated Complaint: CHEST PAIN Time Seen by Provider: 03/01/18 12:01 Mode of Arrival: Ambulatory Information source: Patient Notes: Patient presents emergency department with complaints of epigastric right upper quadrant abdominal pain since . Reports it started hurting when he was just sitting there. He also reports pain radiates posterior on the left side of his back up to his shoulders. Reports he felt really weak for the past 2 days. Denies nausea vomiting diarrhea. Reports he is eating/drinking/ BM as normal. Denies trauma. Patient reports history of 2 stents placed at [facility] at the beginning of January. He has not had a follow-up yet. Patient reports that he has constant ache all the time in his epigastric area feels like air. Reports increased burping. He reports sharp pain when he takes a deep breath into his posterior back. He also reports that last night his shoulder was hurting so bad he could not sleep last night. The pain woke him up but he did not take any pain medications. TRAVEL OUTSIDE OF THE [place] IN LAST 30 DAYS: No - HPI Onset: Other - Onset/Duration: Persistent Quality of pain: Sharp Severity: Moderate Pain Level: 3 Associated symptoms: Weakness Exacerbated by: Supine Relieved by: Sitting, Standing Similar symptoms previously: No Recently seen / treated by doctor: Yes - Related Data Allergies/Adverse Reactions: Iodinated Contrast- Oral and IV Dye [IV Dye, Iodine Containing] Allergy ( Verified 03/01/18 11:45) Past Medical History - General Information source: Patient - Social History Smoking Status: Unknown if Ever Smoked Cigarette use (# per day): No Frequency of alcohol use: Rare Drug Abuse: None Occupation: unemployed Lives with: Family Family History: DM, Hypertension, Malignancy Patient has suicidal ideation: No Patient has homicidal ideation: No - Past Medical History Cardiac Medical History: Reports: Hx Coronary Artery Disease, Hx Hypertension, Hx Pulmonary Embolism Denies: Hx Congestive Heart Failure, Hx DVT, Hx Heart Attack, Hx Peripheral Vascular Disease, Hx Heart Murmur Pulmonary Medical History: Denies: Hx Tuberculosis Endocrine Medical History: Reports: Hx Diabetes Mellitus Type 2 Renal/ Medical History: Reports: Hx Kidney Stones. Denies: Hx Peritoneal Dialysis GI Medical History: Reports: Hx Gastroesophageal Reflux Disease, Other - fatty liver Musculoskeltal Medical History: Reports Hx Arthritis Psychiatric Medical History: Reports: Hx Depression Past Surgical History: Reports: Hx Cardiac Catheterization, Hx Cardiac Surgery - 2 stents placed - Immunizations Immunizations up to date: Yes Hx Diphtheria, Pertussis, Tetanus Vaccination: Yes Hx Pneumococcal Vaccination: 11/26/13 Review of Systems - Review of Systems Notes: Review HPI for review of systems., All other systems negative Physical Exam - Vital signs Vitals: Temp Pulse Resp BP Pulse Ox 99.2 F 79 20 137/72 H 97 03/01/18 11:50 03/01/18 11:50 03/01/18 11:50 03/01/18 11:50 03/01/18 11:50 - Notes Notes: PHYSICAL EXAMINATION: GENERAL: Well-appearing nontoxic looking HEAD: Atraumatic, normocephalic. EYES: Pupils equal round , extraocular movements intact, sclera anicteric, conjunctiva are normal. ENT: nares patent, Moist mucous membranes. NECK: Normal range of motion, supple without lymphadenopathy LUNGS: CTAB and equal. No wheezes rales or rhonchi. no cough HEART: Regular rate and rhythm without murmurs, no chest pain BACK: Denies pain with palpation ABDOMEN: Soft, epigastric, ruq tenderness. No guarding, no rebound EXTREMITIES: Normal range of motion, no pitting edema. No cyanosis. FROM, Denies pain to shoulder, no erythema/warmth/swelling, good radial pulse NEUROLOGICAL: Cranial nerves grossly intact. Normal sensory/motor exams. PSYCH: Normal mood, normal affect. SKIN: Warm, Dry, normal turgor, no rashes or lesions noted Course - Re-evaluation Re-evalutation: 03/01/18 16:34 alk phos 175, Lipase 53, troponin neg. US shows fatty liver, unable to visualize pancrease, Patient updated on all labs and ultrasound report. Patient instructed on waiting for a second troponin. Patient reports pain only when he lays down. Complains of a headache. Tylenol ordered. P.o. fluids provided, drinking po fluids without problems dr estrella consulted regarding patient recent history of stent placement. Advised CT 03/01/18 17:18 Patient reports Tylenol helped his headache and epigastric pain. Second troponin negative. Suggested CT with IV contrast of chest and abdomen. Patient declines. Reports he does not want any contrast. Agrees with noncontrast CT - Vital Signs Vital signs: Temp Pulse Resp BP Pulse Ox 99.2 F 79 18 129/78 H 95 03/01/18 11:50 03/01/18 11:50 03/01/18 18:01 03/01/18 18:01 03/01/18 18:01 - Laboratory Result Diagrams: 03/01/18 12:22 03/01/18 12:22 Laboratory results interpreted by me: 03/01/18 03/01/18 12:22 12:22 Plt Count 138 L Monocytes % 16.3 H Sodium 136.9 L Creatinine 0.49 L Glucose 134 H Alkaline Phosphatase 175 H - Diagnostic Test Radiology reviewed: Image reviewed, Reports reviewed - EXAM DESCRIPTION: U/S ABDOMEN LIMITED W/O DOP COMPLETED DATE/TIME: 03/01/2018 3:36 pm REASON FOR STUDY: EPIGASTRIC RUQ CHEST PAIN, SHOULDER/BACK PAIN COMPARISON: None. TECHNIQUE: Dynamic and static grayscale images acquired of the abdomen and recorded on PACS. Additional selected color Doppler and spectral images recorded. LIMITATIONS: Limited exam due to bowel gas. FINDINGS: PANCREAS: Obscured by bowel gas. LIVER: Hepatomegaly. The liver measures 19.2 cm. Increased echogenicity consistent with fatty infiltration. LIVER VASCULATURE: Normal directional flow of the main portal vein and hepatic veins. GALLBLADDER : The gallbladder wall thickness is 2 mm. Otherwise, no abnormality of the gallbladder. There is question of biliary sludge within the gallbladder. ULTRASOUND-DETECTED MCGARRY'S SIGN: Negative. INTRAHEPATIC DUCTS AND COMMON DUCT : CBD is normal measuring 0.5 cm. Intrahepatic ducts normal caliber. No filling defects. AORTA: Distal abdominal aorta visualized measuring 2 cm. Proximal and mid abdominal aorta obscured by bowel gas. . RIGHT KIDNEY: The right kidney is normal in size measuring 13.3 x 5.5 by 5.9 cm. No hydronephrosis. LEFT KIDNEY: The left kidney is normal in size measuring 9.8 x 5.2 x 5 cm. SPLEEN: : The spleen measures 13.3 cm. IMPRESSION: Limited abdominal ultrasound due to body habitus. Fatty infiltration of the liver. EXAM DESCRIPTION: CHEST PA/LAT COMPLETED DATE/TIME: 03/01/2018 12:45 pm REASON FOR STUDY: EPIGASTRIC RUQ CHEST PAIN, SHOULDER/BACK PAIN COMPARISON: 02/06/2018. EXAM PARAMETERS: NUMBER OF VIEWS: two views TECHNIQUE: Digital Frontal and Lateral radiographic views of the chest acquired. RADIATION DOSE: NA LIMITATIONS: none FINDINGS: LUNGS AND PLEURA: No opacities, masses or pneumothorax. No pleural effusion. MEDIASTINUM AND HILAR STRUCTURES: No masses or contour abnormalities. HEART AND VASCULAR STRUCTURES: Heart normal size. No evidence for failure. BONES: No acute findings. HARDWARE: None in the chest. OTHER: Chest leads in place. IMPRESSION: NO SIGNIFICANT RADIOGRAPHIC FINDING IN THE CHEST. Diagnostic report text EXAM DESCRIPTION: CT ABD/PELVIS NO ORAL OR IV COMPLETED DATE/TIME: 03/01/2018 5:30 pm REASON FOR STUDY: epigastric/ left post back pain/shoulder pain COMPARISON: None. TECHNIQUE: CT scan of the chest performed without intravenous contrast using helical scanning technique. Images reviewed with lung, soft tissue and bone windows. Reconstructed coronal and sagittal MPR images reviewed. All images stored on PACS. All CT scanners at this facility use dose modulation, iterative reconstruction, and/or weight based dosing when appropriate to reduce radiation dose to as low as reasonably achievable (ALARA). [facility]: Dose Right [facility]: CareDose [facility]: Dose Right [facility]: Teradose 4D [facility]: Software [employer] Network RADIATION DOSE: CT Rad equipment meets quality standard of care and radiation dose reduction techniques were employed. CTDIvol: 20.1 mGy. DLP: 1431 mGy-cm. mGy. LIMITATIONS: None. FINDINGS: AXILLAE: No adenopathy. CHEST WALL: No masses. No subcutaneous air. LUNGS: No infiltrates or effusions. Chronic interstitial change noted and lung bases. PLEURA: No effusions. No calcifications. THYROID: No masses or significant asymmetry. HILAR AND MEDIASTINAL STRUCTURES: No mediastinal or hilar adenopathy. AORTA AND GREAT VESSELS: No aneurysm. HEART: No pericardial effusion. Coronary artery stents in place. Atherosclerotic coronary calcification. HARDWARE AND LIFELINES: None. BONES: Dorsal and lumbar spondylosis noted. OTHER: Fatty infiltration of liver. Splenomegaly. IMPRESSION: Atherosclerotic coronary artery disease status post coronary stent placement. Chronic interstitial changes in lung bases. COMPARISON: None. TECHNIQUE: CT scan of the abdomen and pelvis performed without intravenous contrast and oral contrast using helical scanning technique with dynamic intravenous contrast injection. Images reviewed with lung, soft tissue and bone windows. Reconstructed coronal and sagittal MPR images reviewed. All images stored on PACS. All CT scanners at this facility use dose modulation, iterative reconstruction, and/or weight based dosing when appropriate to reduce radiation dose to as low as reasonably achievable (ALARA). [facility]: Dose Right [facility]: SureCare [facility]: Dose Right [facility]: Teradose 4D [facility]: Smart [employer] Digital RADIATION DOSE: CT Rad equipment meets quality standard of care and radiation dose reduction techniques were employed. CTDIvol: 20.1 mGy. DLP: 1431 mGy-cm.mGy. LIMITATIONS: None. FINDINGS: LIVER: Fatty infiltration. The liver demonstrates a scalloped contour. The possibility of hepatocellular disease not excluded. The liver measures 18 cm in length. SPLEEN: The spleen measures 15.6 cm in length with splenomegaly noted. PANCREAS: No masses. No significant calcifications. No adjacent inflammation or peripancreatic fluid collections. Pancreatic duct not dilated. GALLBLADDER: No abnormality seen. ADRENAL GLANDS: No significant masses or asymmetry. RIGHT KIDNEY AND URETER: No solid masses. Assessment limited by lack of IV contrast. No significant calcification. No hydronephrosis or hydroureter. LEFT KIDNEY AND URETER: No solid masses. Assessment limited by lack of IV contrast. No significant calcification. No hydronephrosis or hydroureter. AORTA AND VESSELS: Atherosclerotic change of the abdominal aorta and iliac vessels: Renal vascular calcification noted bilaterally at the osti. A for the renal arteries RETROPERITONEUM: No retroperitoneal adenopathy, hemorrhage or masses. APPENDIX: No abnormality. LARGE AND SMALL BOWEL: Colonic diverticulosis. ABDOMINAL WALL: No hernia or masses. PERITONEAL CAVITY: No free air. No free fluid. No peritoneal implants or masses. PELVIS: Urinary bladder: No abnormality. Prostate and seminal vesicles: No abnormality. Large and small bowel: Diverticulosis. BONES: No significant or acute findings. OTHER: Intra-abdominal varices. Perisplenic varices. IMPRESSION: 1. Fatty infiltration liver. There is a scalloped contour to the liver. Possibility of hepatocellular disease cannot be excluded. Splenomegaly - EKG Interpretation by Ok EKG shows normal: Sinus rhythm Rate: Normal When compared to previous EKG there are: No significant change Discharge - Discharge Clinical Impression: Epigastric pain, Upper back pain on left side Shoulder pain, left Qualifiers: Chronicity: unspecified Qualified Code(s): M25.512 - Pain in left shoulder Condition: Stable Disposition: HOME, SELF-CARE Instructions: Aspirin (Cardiac) ([facility]), Evaluation of Upper Abdominal Pain ([facility]) Additional Instructions: *You have been evaluated for epigastric abdominal pain, shoulder pain, left upper back pain *Take your medication as prescribed, take tylenol as indicated *Follow up with your primary care provider within 3 days *Follow up with your strap stitcher as schedule *Return to ED for worsening condition, changes, needs *Return to ED if not better in 24 hours Referrals: RADHA FLORES NP [Primary Care Provider] - Follow up in 3-5 days
[2018-03-01 12:45] LABS: ABSOLUTE EOSINOPHILS # (AUTO) 0.1 10^3/uL (0.0-0.6); ABSOLUTE LYMPHOCYTES (AUTO) 2.3 10^3/uL (0.5-4.7); ABSOLUTE MONOCYTES (AUTO) 1.4 10^3/uL (0.1-1.4); BASOPHILS % (AUTO) 0.4 % (0-2); HEMATOCRIT 42.5 % (37.9-51.0); LYMPHOCYTES % (AUTO) 25.9 % (13-45); MEAN CORPUSCULAR HEMOGLOBIN 29.8 pg (27.0-33.4); MEAN CORPUSCULAR HGB CONC 35.3 g/dL (32.0-36.0); MEAN CORPUSCULAR VOLUME 85 fl (80-97); MONOCYTES % (AUTO) 16.3 % (3-13); PLATELET COUNT 138 10^3/uL (150-450); RED BLOOD COUNT 5.03 10^6/uL (4.35-5.55); RED CELL DISTRIBUTION WIDTH 13.4 % (11.5-14.0); SEGMENTED NEUTROPHILS % (AUTO) 56.4 % (42-78); TOTAL CELLS COUNTED % (AUTO) 100 %; WHITE BLOOD COUNT 8.8 10^3/uL (4.0-10.5)
--- NOTE | 2018-03-01 12:57 | RADIOLOGY REPORT (SQ) ---
EXAM DESCRIPTION: CHEST PA/LAT COMPLETED DATE/TIME: 03/01/2018 12:45 pm REASON FOR STUDY: EPIGASTRIC RUQ CHEST PAIN, SHOULDER/BACK PAIN COMPARISON: 02/06/2018. EXAM PARAMETERS: NUMBER OF VIEWS: two views TECHNIQUE: Digital Frontal and Lateral radiographic views of the chest acquired. RADIATION DOSE: NA LIMITATIONS: none FINDINGS: LUNGS AND PLEURA: No opacities, masses or pneumothorax. No pleural effusion. MEDIASTINUM AND HILAR STRUCTURES: No masses or contour abnormalities. HEART AND VASCULAR STRUCTURES: Heart normal size. No evidence for failure. BONES: No acute findings. HARDWARE: None in the chest. OTHER: Chest leads in place. IMPRESSION: NO SIGNIFICANT RADIOGRAPHIC FINDING IN THE CHEST. TECHNICAL DOCUMENTATION: JOB ID: [id number] SC-[id number] 2010 [employer]- All Rights Reserved Reading location - IP/workstation name: [email or web address]
[2018-03-01 13:03] LABS: ALANINE AMINOTRANSFERASE 40 U/L (21-72); ALBUMIN 4.1 g/dL (3.5-5.0); ALKALINE PHOSPHATASE 175 U/L (38-126); ANION GAP 12 (5-19); ASPARTATE AMINO TRANSFERASE 39 U/L (17-59); BILIRUBIN,DIRECT 0.2 mg/dL (0.0-0.4); BILIRUBIN,TOTAL 1.1 mg/dL (0.2-1.3); BLOOD UREA NITROGEN 7 mg/dL (7-20); CALCIUM 9.6 mg/dL (8.4-10.2); CARBON DIOXIDE 25 mmol/L (22-30); CHLORIDE 100 mmol/L (98-107); CREATINE KINASE 61 U/L (55-170); GLUCOSE 134 mg/dL (75-110); POTASSIUM 4.1 mmol/L (3.6-5.0); SODIUM 136.9 mmol/L (137-145)
[2018-03-01 13:15] LABS: CREATINE KINASE MB 0.29 ng/mL (<4.55)
[2018-03-01 13:17] LABS: TROPONIN I < 0.012 ng/mL
[2018-03-01] MEDS ORDERED: HYDROMORPHONE HCL 2 MG TABLET PO ONE (15:14)
--- NOTE | 2018-03-01 15:53 | RADIOLOGY REPORT (SQ) ---
EXAM DESCRIPTION: U/S ABDOMEN LIMITED W/O DOP COMPLETED DATE/TIME: 03/01/2018 3:36 pm REASON FOR STUDY: EPIGASTRIC RUQ CHEST PAIN, SHOULDER/BACK PAIN COMPARISON: None. TECHNIQUE: Dynamic and static grayscale images acquired of the abdomen and recorded on PACS. Janeto delilah selected color Doppler and spectral images recorded. LIMITATIONS: Limited exam due to bowel gas. FINDINGS: PANCREAS: Obscured by bowel gas. LIVER: Hepatomegaly. The liver measures 19.2 cm. Increased echogenicity consistent with fatty infi ltration. LIVER VASCULATURE: Normal directional flow of the main portal vein and hepatic veins. GALLBLADDER: The gallbladder wall thickness is 2 mm. Otherwise, no abnormality of the gallbladder. There is question of biliary sludge within the gallbladder. ULTRASOUND-DETECTED MCGARRY'S SIGN: Negative. INTRAHEPATIC DUCTS AND COMMON DUCT: CBD is normal measuring 0.5 cm. Intrahepatic ducts normal calibe r. No filling defects. AORTA: Distal abdominal aorta visualized measuring 2 cm. Proximal and mid abdominal aorta obscured b y bowel gas. . RIGHT KIDNEY: The right kidney is normal in size measuring 13.3 x 5.5 by 5.9 cm. No hydronephrosis. LEFT KIDNEY: The left kidney is normal in size measuring 9.8 x 5.2 x 5 cm. SPLEEN: : The spleen measures 13.3 cm. IMPRESSION: Limited abdominal ultrasound due to body habitus. Fatty infiltration of the liver. TECHNICAL DOCUMENTATION: JOB ID: [id number] SC-[id number] 2010 [employer]- All Rights Reserved Reading location - IP/workstation name: [email or web address]
[2018-03-01] MEDS ORDERED: ACETAMINOPHEN 325 MG TABLET PO ONE (16:33)
--- NOTE | 2018-03-01 17:23 | EKG REPORT ---
SEVERITY:- NORMAL ECG - SINUS RHYTHM : Confirmed by: Luis Camacho MD 01-Mar-2018 17:22:24
--- NOTE | 2018-03-01 17:47 | RADIOLOGY REPORT (SQ) ---
EXAM DESCRIPTION: CT CHEST WITHOUT COMPLETED DATE/TIME: 03/01/2018 5:30 pm REASON FOR STUDY: epigastric/left post back pain/shoulder pain COMPARISON: Chest radiograph 03/01/2018 TECHNIQUE: CT scan performed of the chest without intravenous contrast. Images reviewed with lung, soft tissue and bone windows. Reconstructed coronal and sagittal MPR images reviewed. All images st ored on PACS. All CT scanners at this facility use dose modulation, iterative reconstruction, and/or weight based d osing when appropriate to reduce radiation dose to as low as reasonably achievable (ALARA). [facility]: Dose Right [facility]: CareDose [facility]: Dose Right [facility]: Teradose 4D [facility]: Buffer RADIATION DOSE: mGy. LIMITATIONS: No technical limitations. FINDINGS: LUNGS AND PLEURA: No masses, infiltrates, pneumothorax. No pleural effusions, calcificati ons. HILAR AND MEDIASTINAL STRUCTURES: No identified masses or abnormal nodes. No obvious aneurysm. HEART AND VASCULAR STRUCTURES: No aneurysm. No pericardial effusion. UPPER ABDOMEN: See separate report of the CT of the abdomen. THYROID AND OTHER SOFT TISSUES: No masses. No adenopathy. BONES: No significant finding. HARDWARE: None in the chest. OTHER: No other significant findings. IMPRESSION: NO SIGNIFICANT FINDING ON NON-CONTRASTED CHEST CT. TECHNICAL DOCUMENTATION: JOB ID: [id number] Quality ID # [id number]: Final reports with documentation of one or more dose reduction techniques (e.g., Au tomated exposure control, adjustment of the mA and/or kV according to patient size, use of iterative reconstruction technique) 2010 [employer]- All Rights Reserved Reading location - IP/workstation name: [email or web address]
--- NOTE | 2018-03-01 17:58 | RADIOLOGY REPORT (SQ) ---
EXAM DESCRIPTION: CT ABD/PELVIS NO ORAL OR IV COMPLETED DATE/TIME: 03/01/2018 5:30 pm REASON FOR STUDY: epigastric/left post back pain/shoulder pain COMPARISON: None. TECHNIQUE: CT scan of the chest performed without intravenous contrast using helical scanning techni que. Images reviewed with lung, soft tissue and bone windows. Reconstructed coronal and sagittal MPR images reviewed. All images stored on PACS. All CT scanners at this facility use dose modulation, iterative reconstruction, and/or weight based d osing when appropriate to reduce radiation dose to as low as reasonably achievable (ALARA). [facility]: Dose Right [facility]: CareDose [facility]: Dose Right [facility]: [employer] 4D [facility]: Preen.Me RADIATION DOSE: CT Rad equipment meets quality standard of care and radiation dose reduction techniq ues were employed. CTDIvol: 20.1 mGy. DLP: 1431 mGy-cm. mGy. LIMITATIONS: None. FINDINGS: AXILLAE: No adenopathy. CHEST WALL: No masses. No subcutaneous air. LUNGS: No infiltrates or effusions. Chronic interstitial change noted and lung bases. PLEURA: No effusions. No calcifications. THYROID: No masses or significant asymmetry. HILAR AND MEDIASTINAL STRUCTURES: No mediastinal or hilar adenopathy. AORTA AND GREAT VESSELS: No aneurysm. HEART: No pericardial effusion. Coronary artery stents in place. Atherosclerotic coronary calcifica tion. HARDWARE AND LIFELINES: None. BONES: Dorsal and lumbar spondylosis noted. OTHER: Fatty infiltration of liver. Splenomegaly. IMPRESSION: Atherosclerotic coronary artery disease status post coronary stent placement. Chronic i nterstitial changes in lung bases. COMPARISON: None. TECHNIQUE: CT scan of the abdomen and pelvis performed without intravenous contrast and oral contras t using helical scanning technique with dynamic intravenous contrast injection. Images reviewed with lung, soft tissue and bone windows. Reconstructed coronal and sagittal MPR images reviewed. All im ages stored on PACS. All CT scanners at this facility use dose modulation, iterative reconstruction, and/or weight based d osing when appropriate to reduce radiation dose to as low as reasonably achievable (ALARA). [facility]: Dose Right [facility]: [employer] [facility]: Dose Right [facility]: [employer] 4D [facility]: Smart [employer] RADIATION DOSE: CT Rad equipment meets quality standard of care and radiation dose reduction techniq ues were employed. CTDIvol: 20.1 mGy. DLP: 1431 mGy-cm.mGy. LIMITATIONS: None. FINDINGS: LIVER: Fatty infiltration. The liver demonstrates a scalloped contour. The possibility o f hepatocellular disease not excluded. The liver measures 18 cm in length. SPLEEN: The spleen measures 15.6 cm in length with splenomegaly noted. PANCREAS: No masses. No significant calcifications. No adjacent inflammation or peripancreatic flui d collections. Pancreatic duct not dilated. GALLBLADDER: No abnormality seen. ADRENAL GLANDS: No significant masses or asymmetry. RIGHT KIDNEY AND URETER: No solid masses. Assessment limited by lack of IV contrast. No significant c alcification. No hydronephrosis or hydroureter. LEFT KIDNEY AND URETER: No solid masses. Assessment limited by lack of IV contrast. No significant ca lcification. No hydronephrosis or hydroureter. AORTA AND VESSELS: Atherosclerotic change of the abdominal aorta and iliac vessels: Renal vascular c alcification noted bilaterally at the osti. A for the renal arteries RETROPERITONEUM: No retroperitoneal adenopathy, hemorrhage or masses. APPENDIX: No abnormality. LARGE AND SMALL BOWEL: Colonic diverticulosis. ABDOMINAL WALL: No hernia or masses. PERITONEAL CAVITY: No free air. No free fluid. No peritoneal implants or masses. PELVIS: Urinary bladder: No abnormality. Prostate and seminal vesicles: No abnormality. Large and s mall bowel: Diverticulosis. BONES: No significant or acute findings. OTHER: Intra-abdominal varices. Perisplenic varices. IMPRESSION: 1. Fatty infiltration liver. There is a scalloped contour to the liver. Possibility o f hepatocellular disease cannot be excluded. Splenomegaly. TECHNICAL DOCUMENTATION: JOB ID: [id number] Quality ID # [id number]: Final reports with documentation of one or more dose reduction techniques (e.g., Au tomated exposure control, adjustment of the mA and/or kV according to patient size, use of iterative reconstruction technique) 2010 [employer]- All Rights Reserved Reading location - IP/workstation name: [email or web address]
[2018-03-01 18:16] VITALS: BP 129/78
== END 2018-03-01 18:23 | disposition home or self-care (01) ==
LOC: ER 11:41
DX: R10.13 Epigastric pain (principal); M25.512 Pain in left shoulder; M54.89 Other dorsalgia; R10.11 Right upper quadrant pain; R53.1 Weakness; R07.1 Chest pain on breathing; K76.0 Fatty (change of) liver, not elsewhere classified; R16.1 Splenomegaly, not elsewhere classified; R51 Headache; R14.2 Eructation; E11.9 Type 2 diabetes mellitus without complications; I25.10 Atherosclerotic heart disease of native coronary artery without angina pectoris; I10 Essential (primary) hypertension; Z95.5 Presence of coronary angioplasty implant and graft; Z91.041 Radiographic dye allergy status; Z86.711 Personal history of pulmonary embolism; Z87.442 Personal history of urinary calculi; Z87.19 Personal history of other diseases of the digestive system
CPT/HCPCS: 36415; 71046; 71250; 74176; 76705; 80053; 82550; 82553; 83690; 84484; 85025; 93005; 93010; 99285

== ENCOUNTER 2018-06-01 01:18 | Emergency (ER) | payer SELFPAY ==
[2018-06-01] MEDS ORDERED: ACETAMINOPHEN 325 MG TABLET PO ONE (02:15)
[2018-06-01] MEDS ORDERED: BUPIVACAINE HCL 0.5 % INJ/PF 30 ML SDV INJ ONE (05:35)
[2018-06-01] MEDS ORDERED: HYDROCODONE/ACETAMINOPHEN 5-325 MG (6 TAB/ER DISP) PO PRN (05:35)
[2018-06-01] MEDS ORDERED: PENICILLIN V POTASSIUM 500 MG TABLET PO ONE (05:35)
--- NOTE | 2018-06-01 05:55 | ER Document Report ---
ED General - General Chief Complaint: Dental Injury Stated Complaint: JAW PAIN Time Seen by Provider: 06/01/18 04:50 Mode of Arrival: Ambulatory Information source: Patient Notes: Patient complaints of dental pain to right lower jaw after his tooth broke off while eating. Patient is missing most of his teeth and states that he is planing to get dentures soon. No fevers. TRAVEL OUTSIDE OF THE [place] IN LAST 30 DAYS: No - Related Data Allergies/Adverse Reactions: Iodinated Contrast- Oral and IV Dye [IV Dye, Iodine Containing] Allergy ( Verified 03/01/18 11:45) Past Medical History - General Information source: Patient - Social History Smoking Status: Former Smoker Chew tobacco use (# tins/day): No Frequency of alcohol use: Occasional Drug Abuse: None Family History: DM, Hypertension, Malignancy Patient has suicidal ideation: No Patient has homicidal ideation: No - Past Medical History Cardiac Medical History: Reports: Hx Coronary Artery Disease, Hx Hypertension, Hx Pulmonary Embolism Denies: Hx Congestive Heart Failure, Hx DVT, Hx Heart Attack, Hx Peripheral Vascular Disease, Hx Heart Murmur Pulmonary Medical History: Denies: Hx Tuberculosis Endocrine Medical History: Reports: Hx Diabetes Mellitus Type 2 Renal/ Medical History: Reports: Hx Kidney Stones. Denies: Hx Peritoneal Dialysis GI Medical History: Reports: Hx Gastroesophageal Reflux Disease Musculoskeltal Medical History: Reports Hx Arthritis Psychiatric Medical History: Reports: Hx Depression Past Surgical History: Reports: Hx Cardiac Catheterization, Hx Cardiac Surgery - 2 stents placed - Immunizations Immunizations up to date: Yes Hx Diphtheria, Pertussis, Tetanus Vaccination: Yes Hx Pneumococcal Vaccination: 11/26/13 Review of Systems - Review of Systems Constitutional: No symptoms reported EENT: Dental problem Cardiovascular: No symptoms reported Respiratory: No symptoms reported Gastrointestinal: No symptoms reported Genitourinary: No symptoms reported Male Genitourinary: No symptoms reported Musculoskeletal: No symptoms reported Skin: No symptoms reported Hematologic/Lymphatic: No symptoms reported Neurological/Psychological: No symptoms reported Physical Exam - Vital signs Vitals: Temp Pulse Resp BP Pulse Ox 98.5 F 62 16 155/81 H 96 06/01/18 01:44 06/01/18 01:44 06/01/18 01:44 06/01/18 01:44 06/01/18 01:44 - Notes Notes: PHYSICAL EXAMINATION: GENERAL: Well-appearing, well-nourished and in no acute distress. HEAD: Atraumatic, normocephalic. EYES: Pupils equal round and reactive to light, extraocular movements intact, conjunctiva are normal. ENT: Nares patent, oropharynx clear without exudates. Moist mucous membranes. Missing teeth thorough mouth, broken tooth to right lower jawline near front. NECK: Normal range of motion, supple without lymphadenopathy LUNGS: Breath sounds clear to auscultation bilaterally and equal. No wheezes rales or rhonchi. HEART: Regular rate and rhythm without murmurs PSYCH: Normal mood, normal affect. SKIN: Warm, Dry, normal turgor, no rashes or lesions noted. Course - Re-evaluation Re-evalutation: Patient with right lower dental pain after breaking a tooth while eating. Dental block to right lower jaw performed with marcaine. Will D/C with PCN and alangesics. Patient will follow up with dentist this week. - Vital Signs Vital signs: Temp Pulse Resp BP Pulse Ox 97.6 F 80 18 147/74 H 98 06/01/18 06:08 06/01/18 06:08 06/01/18 06:08 06/01/18 06:08 06/01/18 06:08 Procedures - Additional Procedures alveolar dental block right lower Additional Procedures: Other Discharge - Discharge Clinical Impression: Pain, dental Condition: Stable Disposition: HOME, SELF-CARE Additional Instructions: Toothache Your pain is due to dental decay. The tooth must be repaired in order for you to feel better. You will, therefore, be referred to a dentist. Severe swelling or drainage around a tooth usually means a deep dental abscess. This also requires evaluation and treatment by the dentist, but antibiotics may be prescribed while awaiting dental treatment. You should be rechecked immediately if you develop major swelling of the face, increasing pain, a lump in the jaw or gums, headache, or fever. Please take medications as prescribed. Please keep your follow-up appointment your dentist scheduled for Saturday. Prescriptions: Hydrocodone/Acetaminophen [Hydrocodon-Acetaminophen 5-325] 1 each PO Q4 PRN #10 tablet PRN Reason: Penicillin V Potassium [Penicillin Vk 500 mg Tablet] 500 mg PO BID #20 tablet Referrals: RADHA FLORES NP [Primary Care Provider] - Follow up as needed
[2018-06-01 06:09] VITALS: BP 147/74
== END 2018-06-01 06:08 | disposition home or self-care (01) ==
LOC: ER 01:18
PROC: 3E0T3BZ Introduction of Anesthetic Agent into Peripheral Nerves and Plexi, Percutaneous Approach (ICD-10-PCS; principal; 2018-06-01)
DX: R68.84 Jaw pain (principal); Z87.891 Personal history of nicotine dependence; I25.10 Atherosclerotic heart disease of native coronary artery without angina pectoris; I10 Essential (primary) hypertension; E11.9 Type 2 diabetes mellitus without complications
CPT/HCPCS: 99282; 64400; J3490

== ENCOUNTER 2019-06-13 15:45 | Observation (INO) | payer SELFPAY ==
--- NOTE | 2019-06-13 16:10 | ER Document Report ---
ED Medical Screen (RME) - General Chief Complaint: Chest Pain Stated Complaint: CHEST PAIN Time Seen by Provider: 06/13/19 16:07 Primary Care Provider: RADHA FLORES NP [Primary Care Provider] - Follow up as needed Notes: Patient is a 54-year-old male history of coronary artery disease with stent placement presents to the emergency department with a heaviness in the center of his chest. States it was intermittent for the last couple of days but is been consistent today. States he is got some pain radiating up also into his jaw. Patient states he did take aspirin 1 sublingual nitroglycerin prior to alerting 911. States the one sublingual nitroglycerin has helped his pain. GENERAL: Alert, interacts well. No acute distress. LUNGS: Clear to auscultation bilaterally, no wheezes, rales, or rhonchi. No resp iratory distress. HEART: Regular rate and rhythm. I have greeted and performed a rapid initial assessment of this patient. A comprehensive ED assessment and evaluation of the patient, analysis of test results and completion of the medical decision making process will be conducted by additional ED providers. I have specifically instructed the patient or family members with the patient to immediately return to any nursing staff should anything change in the patient's condition or with their chief complaint. This medical record was dictated with voice recognizing software. There may be grammatical, syntax errors that are unintended. TRAVEL OUTSIDE OF THE [place] IN LAST 30 DAYS: No - Related Data Allergies/Adverse Reactions: Iodinated Contrast- Oral and IV Dye [IV Dye, Iodine Containing] Allergy (Verified 06/13/19 15:49) Past Medical History - Past Medical History Cardiac Medical History: Reports: Hx Coronary Artery Disease, Hx Hypertension, Hx Pulmonary Embolism Denies: Hx Congestive Heart Failure, Hx DVT, Hx Heart Attack, Hx Peripheral Vascular Disease, Hx Heart Murmur Pulmonary Medical History: Denies: Hx Tuberculosis Endocrine Medical History: Reports: Hx Diabetes Mellitus Type 2 Renal/ Medical History: Reports: Hx Kidney Stones. Denies: Hx Peritoneal Dialysis GI Medical History: Reports: Hx Gastroesophageal Reflux Disease Musculoskeltal Medical History: Reports Hx Arthritis Psychiatric Medical History: Reports: Hx Depression Past Surgical History: Reports: Hx Cardiac Catheterization, Hx Cardiac Surgery - 2 stents placed - Immunizations Immunizations up to date: Yes Hx Diphtheria, Pertussis, Tetanus Vaccination: Yes History of Influenza Vaccine for 09/2017 - 01/2018 Season: No Physical Exam - Vital signs Vitals: Temp Pulse Resp BP Pulse Ox 98.0 F 59 L 22 H 123/59 L 97 06/13/19 16:01 06/13/19 16:01 06/13/19 16:01 06/13/19 16:01 06/13/19 16:01 Course - Vital Signs Vital signs: Temp Pulse Resp BP Pulse Ox 98.0 F 59 L 22 H 123/59 L 97 06/13/19 16:01 06/13/19 16:01 06/13/19 16:01 06/13/19 16:01 06/13/19 16:01 Doctor's Discharge - Discharge Referrals: RADHA FLORES, FRONT DESK ASSOCIATE [Primary Care Provider] - Follow up as needed
[2019-06-13 16:35] LABS: ABSOLUTE EOSINOPHILS # (AUTO) 0.1 10^3/uL (0.0-0.6); ABSOLUTE LYMPHOCYTES (AUTO) 1.5 10^3/uL (0.5-4.7); ABSOLUTE MONOCYTES (AUTO) 0.7 10^3/uL (0.1-1.4); ABSOLUTE NEUT (AUTO) 3.2 10^3/uL (1.7-8.2); BASOPHILS % (AUTO) 0.7 % (0-2); EOSINOPHILS % (AUTO) 2.3 % (0-6); HEMATOCRIT 42.6 % (37.9-51.0); HEMOGLOBIN 14.8 g/dL (13.5-17.0); LYMPHOCYTES % (AUTO) 27.5 % (13-45); MEAN CORPUSCULAR HEMOGLOBIN 30.3 pg (27.0-33.4); MEAN CORPUSCULAR HGB CONC 34.7 g/dL (32.0-36.0); MEAN CORPUSCULAR VOLUME 87 fl (80-97); MONOCYTES % (AUTO) 13.1 % (3-13); PLATELET COUNT 128 10^3/uL (150-450); RED BLOOD COUNT 4.88 10^6/uL (4.35-5.55); RED CELL DISTRIBUTION WIDTH 13.6 % (11.5-14.0); SEGMENTED NEUTROPHILS % (AUTO) 56.4 % (42-78); TOTAL CELLS COUNTED % (AUTO) 100 %; WHITE BLOOD COUNT 5.6 10^3/uL (4.0-10.5)
--- NOTE | 2019-06-13 16:48 | RADIOLOGY REPORT (SQ) ---
EXAM DESCRIPTION: CHEST SINGLE VIEW COMPLETED DATE/TIME: 06/13/2019 4:29 pm REASON FOR STUDY: Chest pain COMPARISON: Chest x-ray 12/18/2011, 03/01/2018. EXAM PARAMETERS: NUMBER OF VIEWS: One view. TECHNIQUE: Single frontal radiographic view of the chest acquired. RADIATION DOSE: NA LIMITATIONS: None. FINDINGS: LUNGS AND PLEURA: No consolidation, pneumothorax or pleural effusion. MEDIASTINUM AND HILAR STRUCTURES: No masses. Contour normal. HEART AND VASCULAR STRUCTURES: Heart normal in size. Normal vasculature. BONES: No acute findings. HARDWARE: None in the chest. IMPRESSION: NO ACUTE RADIOGRAPHIC FINDING IN THE CHEST. TECHNICAL DOCUMENTATION: JOB ID: [id number] 2010 [employer]- All Rights Reserved Reading location - IP/workstation name: [email or web address]
[2019-06-13 16:53] LABS: ALANINE AMINOTRANSFERASE 30 U/L (21-72); ALBUMIN 4.3 g/dL (3.5-5.0); ALKALINE PHOSPHATASE 158 U/L (38-126); ANION GAP 10 (5-19); ASPARTATE AMINO TRANSFERASE 62 U/L (17-59); BILIRUBIN,DIRECT 0.4 mg/dL (0.0-0.4); BILIRUBIN,TOTAL 1.2 mg/dL (0.2-1.3); BLOOD UREA NITROGEN 10 mg/dL (7-20); CARBON DIOXIDE 26 mmol/L (22-30); CHLORIDE 105 mmol/L (98-107); CREATINE KINASE 141 U/L (55-170); GLUCOSE 114 mg/dL (75-110); POTASSIUM 4.5 mmol/L (3.6-5.0)
[2019-06-13 17:04] LABS: CREATINE KINASE MB 1.71 ng/mL (<4.55)
--- NOTE | 2019-06-13 17:04 | EKG REPORT ---
SEVERITY:- NORMAL ECG - SINUS RHYTHM : Confirmed by: Anne Enriquez MD 13-Jun-2019 17:04:04
[2019-06-13 17:07] LABS: TROPONIN I < 0.012 ng/mL
--- NOTE | 2019-06-13 19:21 | ER Document Report ---
ED Cardiac - General Chief Complaint: Chest Pain Stated Complaint: CHEST PAIN Time Seen by Provider: 06/13/19 16:07 Mode of Arrival: Medic Information source: Patient TRAVEL OUTSIDE OF THE [place] IN LAST 30 DAYS: No - HPI Patient complains to provider of: Chest pain Was the onset of pain: Sudden Chest pain location: Substernal Quality of pain: Pressure Chest pain radiation location: Left jaw, Left arm Severity now: Mild Severity at worst: Severe Pain level currently: 1 Chest pain precipitating factors: At Rest Cardiac risk factors: Diabetes, Hypertension, + Family history, Dyslipidemia, Hx [place] Positive cardiac history: Yes Associated symptoms: Shortness of breath, Other - Nausea Exacerbated by: Denies Relieved by: NTG, Other - Aspirin Similar symptoms previously: Yes Recently seen / treated by doctor: No - Related Data Allergies/Adverse Reactions: Iodinated Contrast- Oral and IV Dye [IV Dye, Iodine Containing] Allergy (Verified 06/13/19 15:49) Past Medical History - General Information source: Patient - Social History Smoking Status: Never Smoker Frequency of alcohol use: Occasional Drug Abuse: None Family History: DM, Hypertension, Malignancy Patient has suicidal ideation: No Patient has homicidal ideation: No - Past Medical History Cardiac Medical History: Reports: Hx Coronary Artery Disease, Hx Hypertension, Hx Pulmonary Embolism Denies: Hx Congestive Heart Failure, Hx DVT, Hx Heart Attack, Hx Peripheral Vascular Disease, Hx Heart Murmur Pulmonary Medical History: Denies: Hx Tuberculosis Endocrine Medical History: Reports: Hx Diabetes Mellitus Type 2 Renal/ Medical History: Reports: Hx Kidney Stones. Denies: Hx Peritoneal Dialysis GI Medical History: Reports: Hx Gastroesophageal Reflux Disease Musculoskeletal Medical History: Reports Hx Arthritis Psychiatric Medical History: Reports: Hx Depression Past Surgical History: Reports: Hx Cardiac Catheterization, Hx Cardiac Surgery - 2 stents placed - Immunizations Immunizations up to date: Yes Hx Diphtheria, Pertussis, Tetanus Vaccination: Yes Hx Pneumococcal Vaccination: 11/26/13 Review of Systems - Review of Systems Constitutional: No symptoms reported EENT: No symptoms reported Cardiovascular: Chest pain Respiratory: Short of breath Gastrointestinal: No symptoms reported Genitourinary: No symptoms reported Male Genitourinary: No symptoms reported Musculoskeletal: No symptoms reported Skin: No symptoms reported Hematologic/Lymphatic: No symptoms reported Neurological/Psychological: No symptoms reported -: Yes All other systems reviewed and negative Physical Exam - Vital signs Vitals: Temp Pulse Resp BP Pulse Ox 98.0 F 59 L 22 H 123/59 L 97 06/13/19 16:01 06/13/19 16:01 06/13/19 16:01 06/13/19 16:01 06/13/19 16:01 Interpretation: Normal - General General appearance: Appears well, Alert In distress: None - HEENT Head: Normocephalic, Atraumatic Eyes: Normal Pupils: PERRL - Respiratory Respiratory status: No respiratory distress Chest status: Nontender Breath sounds: Normal Chest palpation: Normal - Cardiovascular Rhythm: Regular Heart sounds: Normal auscultation Murmur: No - Abdominal Inspection: Normal Distension: No distension Bowel sounds: Normal Tenderness: Nontender Organomegaly: No organomegaly - Back Back: Normal, Nontender - Extremities General upper extremity: Normal inspection, Nontender, Normal color, Normal ROM, Normal temperature General lower extremity: Normal inspection, Nontender, Normal color, Normal ROM, Normal temperature, Normal weight bearing. No: Pedro's sign - Neurological Neuro grossly intact: Yes Cognition: Normal Orientation: AAOx4 [place] Coma Scale Eye Opening: Spontaneous [place] Coma Scale Verbal: Oriented [place] Coma Scale Motor: Obeys Commands [place] Coma Scale Total: 15 Speech: Normal Motor strength normal: LUE, RUE, LLE, RLE Sensory: Normal - Psychological Associated symptoms: Normal affect, Normal mood - Skin Skin Temperature: Warm Skin Moisture: Dry Skin Color: Normal Course - Re-evaluation Re-evalutation: 06/13/19 22:27 On reevaluation patient stated he is chest pain-free. He will be admitted to the hospital for further management. - Vital Signs Vital signs: Temp Pulse Resp BP Pulse Ox 98.3 F 59 L 21 H 114/66 97 06/13/19 20:00 06/13/19 16:01 06/13/19 20:01 06/13/19 20:00 06/13/19 20:01 - Laboratory Result Diagrams: 06/13/19 16:22 06/13/19 16:22 Laboratory results interpreted by me: 06/13/19 06/13/19 16:22 16:22 Plt Count 128 L Monocytes % 13.1 H Creatinine 0.51 L Glucose 114 H AST 62 H Alkaline Phosphatase 158 H - Diagnostic Test Radiology reviewed: Reports reviewed Radiology results interpreted by me: 06/13/19 21:02 Chest x-ray is negative. - EKG Interpretation by Me EKG shows normal: Sinus rhythm Rate: Normal When compared to previous EKG there are: No significant change Additional EKG results interpreted by me: 06/13/19 21:03 EKG is unchanged from previous EKG on March 01, 2018. No STEMI. Dr. Enriquez was consulted and he will see patient as an inpatient. - Transfer of Care Notes: 06/13/19 22:27 Dr. Enriquez the java j2ee application developer telegraph office telephone clerk was consulted. He will see patient in the hospital. Patient will be admitted to the hospital by Dr. Edmondson the hospitalist on-call for further evaluation and management. Discharge - Discharge Clinical Impression: Chest pain due to CAD Coronary artery disease Qualifiers: Coronary Disease-Associated Artery/Lesion type: [place] artery [place] vs. transplanted heart: nond[place] heart Associated angina: with unspecified angina Qualified Code(s): I25.119 - Atherosclerotic heart disease of [place] coronary artery with unspecified angina pectoris Chest pain Qualifiers: Chest pain type: unspecified Qualified Code(s): R07.9 - Chest pain, unspecified Condition: Stable Disposition: ADMITTED INPATIENT Admitting Provider: Debo (Hospitalist) Unit Admitted: Telemetry
[2019-06-13] MEDS ORDERED: MAGNESIUM HYDROXIDE SUSP 30 ML UDCUP PO PRN (21:07)
[2019-06-13] MEDS ORDERED: MAG HYDROX/AL HYDROX/SIMETH SUSP 30 ML UDCUP PO PRN (21:07)
[2019-06-13] MEDS ORDERED: ONDANSETRON HCL INJ/PF 4 MG/2 ML SDV IV PRN (21:07)
[2019-06-13] MEDS ORDERED: ZOLPIDEM TARTRATE 5 MG TABLET PO PRN (21:07)
[2019-06-13] MEDS ORDERED: INSULIN REG, HUMAN 100 UNIT/ML 3 ML VIAL (PYX) SUBCUT PRN (21:15)
[2019-06-13] MEDS ORDERED: MORPHINE SULFATE 10 MG/ML INJ IV PRN ×4 (21:15→21:27)
[2019-06-13] MEDS ORDERED: ACETAMINOPHEN 325 MG TABLET PO PRN (21:15)
[2019-06-13] MEDS ORDERED: METOPROLOL TARTRATE PF/INJ 5 MG/5 ML SDV IV PRN (21:15)
[2019-06-13] MEDS ORDERED: HYDRALAZINE HCL INJ/PF 20 MG/1 ML SDV IV PRN (21:15)
[2019-06-13] MEDS ORDERED: GLUCAGON,HUMAN RECOMB 1 MG INJ IM PRN (21:17)
[2019-06-13] MEDS ORDERED: DEXTROSE 50%-WATER 25 GM/50 ML DISP.SYRIN IV PRN ×2 (21:17)
[2019-06-13] MEDS ORDERED: DEXTROSE 40% GEL 15 GM TUBE PO PRN ×2 (21:17)
[2019-06-13] MEDS ORDERED: NITROGLYCERIN 2% OINTMENT 1 GM PACKET TP SCH (21:30)
[2019-06-13] MEDS: FAMOTIDINE 20 MG TABLET PO SCH (21:39)
[2019-06-13] MEDS: METOPROLOL TARTRATE 25 MG TABLET PO SCH (21:39)
[2019-06-13] MEDS: HEPARIN SOD (PORCINE) 5,000 UNIT/ML 1 ML SYRINGE SUBCUT SCH (21:44)
[2019-06-13] MEDS ORDERED: ATORVASTATIN CALCIUM 40 MG TABLET PO SCH (22:00)
[2019-06-13 22:14] LABS: FREE T3 4.35 pg/mL (2.77-5.27); FREE T4 (FREE THYROXINE) 0.81 ng/dL (0.78-2.19)
[2019-06-13 22:27] LABS: THYROID STIMULATING HORMONE 1.39 uIU/mL (0.47-4.68)
--- NOTE | 2019-06-13 23:38 | PDOC H&P ---
History of Present Illness Admission Date/PCP: 06/12/2019 20:16 RADHA FLORES NP Patient complains of: Chest pain History of Present Illness: MICHEL DIAZ is a 54 year old male who presents the emergency room with a 2- day history of chest pain. Patient admits brief intermittent episodes of chest pain over the last 2 days, but developed an episode of chest pain beginning earlier this afternoon that has been persistent since onset. He describes the pain as a constant, moderate heaviness in the center of his chest with radiation into his jaw and left arm. The chest pain was accompanied by mild nausea without vomiting. He denies any other accompanying or associated symptoms. His pain was partially relieved by 1 dose of sublingual nitroglycerin and one aspirin which he took prior to calling EMS. He admits numerous prior similar episodes related to his coronary artery disease. He has not identified any aggravating or additional ameliorating factors for his chest pain. In the emergency room he was found to have an EKG that did not reflect evidence for acute myocardial ischemia or injury and his initial cardiac enzymes were negative. Dr. Enriquez was consulted by the emergency room physician and he asked that the patient be admitted to the hospitalist service for further evaluation and consultation to be performed by Dr. Enriquez. Past Medical History Cardiac Medical History: Reports: Coronary Artery Disease, Hypertension, Pulmonary Embolism Denies: Congestive Heart Failure, DVT, Myocardial Infarction, Peripheral Vascular Disease, Heart Murmur Pulmonary Medical History: Denies: Asthma, Chronic Obstructive Pulmonary Disease (COPD), Respiratory Failure, Sleep Apnea EENT Medical History: Denies: Cataracts, Ears - Hearing aids Neurological Medical History: Denies: Hemorrhagic CVA, Ischemic CVA, Multiple Sclerosis, Seizures Endocrine Medical History: Reports: Diabetes Mellitus Type 2 Denies: Diabetes Mellitus Type 1, Hyperthyroidism, Hypothyroidism Renal/ Medical History: Denies: Chronic Kidney Disease, Nephrolithiasis Malignancy Medical History: Reports: None GI Medical History: Reports: Gastroesophageal Reflux Disease Denies: Cirrhosis, Crohn's Disease, Hepatitis, Ulcerative Colitis Musculoskeltal Medical History: Reports: Arthritis - 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 Denies: Fibromyalgia, Gout Skin Medical History: Denies: Eczema, Psoriasis Psychiatric Medical History: Reports: Alcohol Dependency, Depression Denies: Substance Abuse, Tobacco Dependency Traumatic Medical History: Reports: None Hematology: Denies: Anemia, Bleeding Tendencies Infectious Medical History: Reports: None Past Surgical History Past Surgical History: Reports: Cardiac Catheterization, Coronary Stent - 2 episodes, received 2 stents with each episode Social History Information Source: Patient Lives with: Spouse/Significant other Smoking Status: Never Smoker Frequency of Alcohol Use: None - History of alcohol abuse, but quit more than 20 years ago. Occasionally has a beer, but consumes less than 6 beers per month. Hx Recreational Drug Use: No Drugs: None Hx Prescription Drug Abuse: No - Advance Directive Resuscitation Status: Full Code Surrogate healthcare decision maker:: Kelsea Diaz Family History Family History: CAD, DM, Hypertension, Malignancy Parental Family History Reviewed: Yes Children Family History Reviewed: No Sibling(s) Family History Reviewed.: Yes Medication/Allergy Home Medications: Lisinopril [Prinivil 5 mg Tablet] 5 mg PO DAILY 02/07/18 Insulin Lispro [Humalog Insulin (Lispro) 100 unit/mL] 0 - 12 unit SUBCUT ACHSP PRN unit 02/08/18 Aspirin [Aspirin 81 mg Chewable Tablet] 81 mg PO DAILY 06/13/19 Atorvastatin Calcium [Lipitor 40 mg Tablet] 40 mg PO QHS 06/13/19 Clopidogrel Bisulfate [Plavix] 75 mg PO DAILY 06/13/19 Metformin HCl 1,000 mg PO BID 06/13/19 Metoprolol Tartrate [Lopressor 25 mg Tablet] 25 mg PO Q12 06/13/19 Allergies/Adverse Reactions: Iodinated Contrast- Oral and IV Dye [IV Dye, Iodine Containing] Allergy (Verified 06/13/19 15:49) Review of Systems Constitutional: ABSENT: chills, fever(s) Eyes: ABSENT: visual disturbances, other - Eye pain Ears: ABSENT: hearing changes, other - Ear pain Nose, Mouth, and Throat: ABSENT: mouth pain, sore throat Cardiovascular: PRESENT: chest pain. ABSENT: dyspnea on exertion, edema, orthropnea, palpitations Respiratory: ABSENT: cough, dyspnea Gastrointestinal: PRESENT: nausea. ABSENT: abdominal pain, constipation, diarrhea, vomiting Genitourinary: ABSENT: dysuria, hematuria Musculoskeletal: PRESENT: back pain - Chronic. ABSENT: joint swelling, muscle weakness Integumentary: ABSENT: pruritus, rash Neurological: ABSENT: confusion, convulsions, focal weakness, memory loss, syncope Psychiatric: ABSENT: anxiety, depression Endocrine: ABSENT: cold intolerance, heat intolerance Hematologic/Lymphatic: ABSENT: easy bleeding, easy bruising Physical Exam Vital Signs: Temp Pulse Resp BP Pulse Ox 98.3 F 59 L 21 H 114/66 97 06/13/19 20:00 06/13/19 16:01 06/13/19 20:01 06/13/19 20:00 06/13/19 20:01 Intake & Output 06/11/19 06/12/19 06/13/19 23:59 23:59 23:59 Weight 113.398 kg General appearance: PRESENT: no acute distress, cooperative Head exam: PRESENT: atraumatic, normocephalic Eye exam: PRESENT: conjunctiva pink. ABSENT: conjunctival injection, scleral icterus Ear exam: PRESENT: normal external ear exam. ABSENT: bleeding, drainage Mouth exam: PRESENT: dry mucosa, neck supple Neck exam: ABSENT: JVD, thyromegaly, tracheal deviation Respiratory exam: PRESENT: clear to auscultation lizandro, symmetrical, unlabored Cardiovascular exam: PRESENT: RRR. ABSENT: clicks, gallop, rubs Pulses: PRESENT: normal radial pulses, normal dorsalis pedis pul Vascular exam: PRESENT: normal capillary refill. ABSENT: pallor GI/Abdominal exam: PRESENT: normal bowel sounds, soft Rectal exam: PRESENT: deferred Extremities exam: ABSENT: joint swelling, pedal edema Musculoskeletal exam: PRESENT: full ROM, normal inspection Neurological exam: PRESENT: alert, oriented to person, oriented to place, oriented to time, oriented to situation, CN II-XII grossly intact. ABSENT: motor sensory deficit Psychiatric exam: PRESENT: appropriate affect, normal mood Skin exam: PRESENT: dry, intact, warm. ABSENT: jaundice, rash, urticaria Results Laboratory Results: 06/13/19 16:22 06/13/19 16:22 06/13/19 06/13/19 16:22 16:22 WBC 5.6 RBC 4.88 Hgb 14.8 Hct 42.6 MCV 87 MCH 30.3 MCHC 34.7 RDW 13.6 Plt Count 128 L Seg Neutrophils % 56.4 Lymphocytes % 27.5 Monocytes % 13.1 H Eosinophils % 2.3 Basophils % 0.7 Absolute Neutrophils 3.2 Absolute Lymphocytes 1.5 Absolute Monocytes 0.7 Absolute Eosinophils 0.1 Absolute Basophils 0.0 Sodium 141.0 Potassium 4.5 Chloride 105 Carbon Dioxide 26 Anion Gap 10 BUN 10 Creatinine 0.51 L Est GFR ( Amer) > 60 Est GFR (Non-Af Amer) > 60 Glucose 114 H Calcium 9.0 Total Bilirubin 1.2 AST 62 H ALT 30 Alkaline Phosphatase 158 H Total Protein 8.0 Albumin 4.3 06/13/19 06/13/19 16:22 16:22 Creatine Kinase 141 CK-MB (CK-2) 1.71 Troponin I < 0.012 Impressions: Chest X-Ray 06/13/19 16:09 IMPRESSION: NO ACUTE RADIOGRAPHIC FINDING IN THE CHEST. Assessment and Plan - Diagnosis (1) Chest pain Qualifiers: Chest pain type: unspecified Qualified Code(s): R07.9 - Chest pain, unspecified Is this a current diagnosis for this admission?: Yes Plan: Patient's chest pain will be treated with nitroglycerin ointment 1 inch changed every 6 hours and morphine sulfate 2 to 4 mg IV every 2 hours as needed on a sliding scale basis for chest pain. (2) Coronary artery disease Qualifiers: Coronary Disease-Associated Artery/Lesion type: [place] artery [place] vs. transplanted heart: [place] heart Associated angina: with unspecified angina Qualified Code(s): I25.119 - Atherosclerotic heart disease of [place] coronary artery with unspecified angina pectoris Is this a current diagnosis for this admission?: Yes Plan: Patient will be seen in consultation by Dr. Enriquez. His chest pain will be evaluated with serial cardiac enzymes and EKGs. Further evaluation and treatment will be guided by Dr. Enriquez's consultation. (3) Essential hypertension Is this a current diagnosis for this admission?: Yes Plan: Patient will be continued on his usual antihypertensive regimen. His blood pressure be followed closely throughout his hospital stay. (4) Hyperlipidemia Qualifiers: Hyperlipidemia type: unspecified Qualified Code(s): E78.5 - Hyperlipidemia, unspecified Is this a current diagnosis for this admission?: Yes Plan: Patient be continued on his usual hyperlipidemia medications. A lipid profile will be obtained to assess the efficacy of his current therapy. A thyroid profile will also be obtained as part of the assessment of his hyperlipidemia. (5) Diabetes mellitus type 2 in obese Is this a current diagnosis for this admission?: Yes Plan: Patient will be continued on his usual diabetic regiment and a diabetic diet. Before meals and at bedtime blood sugars will be obtained via Accu-Chek and a sliding scale insulin will be used for hyperglycemia. Hypoglycemic protocol will be in place. Hemoglobin A1c will be obtained to evaluate the patient's current therapy. - Time Time Spent with patient: 25-34 minutes Medications reviewed and adjusted accordingly: Yes Anticipated discharge: Home - Inpatient Certification Based on my medical assessment, after consideration of the patient's comorbidities, presenting symptoms, or acuity I expect that the services needed warrant INPATIENT care.: No I certify that my determination is in accordance with my understanding of Medicare's requirements for reasonable and necessary INPATIENT services [42 CFR 412.3e].: No Medical Necessity: Significant Comorbidiites Make Outpatient Treatment Too Risky, Need Close Monitoring Due to Risk of Patient Decompensation, Need For Continuous Telemetry Monitoring, Need for Pain Control, Risk of Complication if Not Cared For in Hospital
--- NOTE | 2019-06-13 23:40 | ADVANCED CARE ---
- Diagnosis (1) Chest pain Diagnosis Current: Yes (2) Coronary artery disease Diagnosis Current: Yes (3) Essential hypertension Diagnosis Current: Yes (4) Hyperlipidemia Diagnosis Current: Yes (5) Diabetes mellitus type 2 in obese Diagnosis Current: Yes Attendance: The patient, Kelsea Diaz his and myself. Resuscitation Status: Full Code Discussion: The patient wishes to be a full code for resuscitation status during this hospitalization in the event of a cardiac or respiratory arrest. Furthermore he wishes to name Kelsea Diaz as his designated surrogate medical decision- maker. Care Planning Goals: 1. Patient will be full CODE STATUS for this hospitalization. 2. Kelsea Diaz is the patient's designated surrogate medical decision maker. Document(s) Completed: The following entries will be made to the patient's permanent medical record, current medical record and orders via EMR entry: 1. Patient will be full CODE STATUS for this hospitalization. 2. Kelsea Diaz is the patient's designated surrogate medical decision maker. Time Spent: 7 minutes
[2019-06-14 02:26] LABS: CREATINE KINASE MB 0.85 ng/mL (<4.55)
[2019-06-14 02:29] LABS: TROPONIN I < 0.012 ng/mL
[2019-06-14] MEDS: HEPARIN SOD (PORCINE) 5,000 UNIT/ML 1 ML SYRINGE SUBCUT SCH ×2 (06:02→13:00)
[2019-06-14 07:47] LABS: HEMATOCRIT 40.1 % (37.9-51.0); HEMOGLOBIN 13.8 g/dL (13.5-17.0); MEAN CORPUSCULAR HEMOGLOBIN 30.2 pg (27.0-33.4); MEAN CORPUSCULAR HGB CONC 34.5 g/dL (32.0-36.0); MEAN CORPUSCULAR VOLUME 88 fl (80-97); PLATELET COUNT 100 10^3/uL (150-450); RED BLOOD COUNT 4.58 10^6/uL (4.35-5.55); RED CELL DISTRIBUTION WIDTH 13.5 % (11.5-14.0)
[2019-06-14 08:00] LABS: ANION GAP 10 (5-19); BLOOD UREA NITROGEN 12 mg/dL (7-20); CALCIUM 8.9 mg/dL (8.4-10.2); CARBON DIOXIDE 24 mmol/L (22-30); CHLORIDE 105 mmol/L (98-107); CHOLESTEROL 127.16 mg/dL (0-200); GLUCOSE 108 mg/dL (75-110); POTASSIUM 4.3 mmol/L (3.6-5.0); SODIUM 138.5 mmol/L (137-145); TRIGLYCERIDES 110 mg/dL (<150)
[2019-06-14 08:13] LABS: DIRECT LDL 83 mg/dL (<100)
[2019-06-14 08:14] LABS: CREATINE KINASE MB 0.91 ng/mL (<4.55)
[2019-06-14 08:15] LABS: TROPONIN I < 0.012 ng/mL
[2019-06-14 08:34] LABS: APPEARANCE,URINE CLEAR; BILIRUBIN,URINE NEGATIVE (NEGATIVE); COLOR,URINE AMBER; GLUCOSE, URINE NEGATIVE (NEGATIVE); KETONES,URINE NEGATIVE (NEGATIVE); LEUKOCYTE ESTERASE,URINE NEGATIVE (NEGATIVE); NITRITE,URINE NEGATIVE (NEGATIVE); PROTEIN,URINE NEGATIVE (NEGATIVE); URINE SPECIFIC GRAVITY 1.028
[2019-06-14] MEDS: FAMOTIDINE 20 MG TABLET PO SCH (09:07)
[2019-06-14] MEDS: METFORMIN HCL 500 MG TABLET PO SCH ×2 (09:07→16:12)
[2019-06-14] MEDS: METOPROLOL TARTRATE 25 MG TABLET PO SCH (09:08)
[2019-06-14] MEDS: DOCUSATE SODIUM 100 MG CAPSULE PO SCH ×2 (09:08→16:59)
[2019-06-14] MEDS ORDERED: CLOPIDOGREL BISULFATE 75 MG TABLET PO SCH (10:00)
[2019-06-14] MEDS ORDERED: LISINOPRIL 5 MG TABLET PO SCH (10:00)
[2019-06-14] MEDS ORDERED: ASPIRIN 81 MG TABLET, CHEWABLE PO SCH (10:00)
[2019-06-14 11:04] LABS: URINE AMPHETAMINES SCREEN NEGATIVE; URINE BARBITURATES SCREEN NEGATIVE; URINE BENZODIAZEPINES SCREEN NEGATIVE; URINE COCAINE SCREEN NEGATIVE; URINE METHADONE SCREEN NEGATIVE; URINE PHENCYCLIDINE SCREEN NEGATIVE
[2019-06-14 11:08] LABS: URINE MARIJUANA (THC) SCREEN UNCONFIRMED POSITIVE
--- NOTE | 2019-06-14 12:05 | PDOC PROGRESS REPORT ---
Subjective Progress Note for:: 06/14/19 Subjective:: This is a 54 years old male patient with past medical history of coronary artery disease, hypertension, history of PE, presented with chief complaint of chest pain. He describes chest pain as squeezing and pressure-like and localized to his substernal and radiating to his jaw. His 2 sets of cardiac enzymes are negative. Since patient has multiple risk factor for acute current syndrome he will be was reviewed and stress test in the morning. Reason For Visit: CHEST PAIN Physical Exam Vital Signs: Temp Pulse Resp BP Pulse Ox 97.7 F 60 21 H 106/52 L 99 06/14/19 08:00 06/14/19 08:00 06/14/19 08:00 06/14/19 08:00 06/14/19 08:00 Intake & Output 06/13/19 06/14/19 06/15/19 06:59 06:59 06:59 Intake Total 0 Output Total 0 Balance 0 Weight 119.3 kg General appearance: PRESENT: no acute distress, well-developed, well-nourished Head exam: PRESENT: atraumatic, normocephalic Eye exam: PRESENT: conjunctiva pink, EOMI, PERRLA. ABSENT: scleral icterus Ear exam: PRESENT: normal external ear exam Mouth exam: PRESENT: moist, tongue midline Neck exam: ABSENT: carotid bruit, JVD, lymphadenopathy, thyromegaly Respiratory exam: PRESENT: clear to auscultation lizandro. ABSENT: rales, rhonchi, wheezes Cardiovascular exam: PRESENT: RRR. ABSENT: diastolic murmur, rubs, systolic murmur Pulses: PRESENT: normal dorsalis pedis pul Vascular exam: PRESENT: normal capillary refill GI/Abdominal exam: PRESENT: normal bowel sounds, soft. ABSENT: distended, guarding, mass, organolmegaly, rebound, tenderness Rectal exam: PRESENT: deferred Extremities exam: PRESENT: full ROM. ABSENT: calf tenderness, clubbing, pedal edema Neurological exam: PRESENT: alert, awake, oriented to person, oriented to place, oriented to time, oriented to situation, CN II-XII grossly intact. ABSENT: motor sensory deficit Psychiatric exam: PRESENT: appropriate affect, normal mood. ABSENT: homicidal ideation, suicidal ideation Skin exam: PRESENT: dry, intact, warm. ABSENT: cyanosis, rash Results Laboratory Results: 06/14/19 07:27 06/14/19 07:27 06/13/19 06/13/19 06/13/19 16:22 16:22 16:22 WBC 5.6 RBC 4.88 Hgb 14.8 Hct 42.6 MCV 87 MCH 30.3 MCHC 34.7 RDW 13.6 Plt Count 128 L Seg Neutrophils % 56.4 Lymphocytes % 27.5 Monocytes % 13.1 H Eosinophils % 2.3 Basophils % 0.7 Absolute Neutrophils 3.2 Absolute Lymphocytes 1.5 Absolute Monocytes 0.7 Absolute Eosinophils 0.1 Absolute Basophils 0.0 Sodium 141.0 Potassium 4.5 Chloride 105 Carbon Dioxide 26 Anion Gap 10 BUN 10 Creatinine 0.51 L Est GFR ( Amer) > 60 Est GFR (Non-Af Amer) > 60 Glucose 114 H Calcium 9.0 Magnesium Total Bilirubin 1.2 AST 62 H ALT 30 Alkaline Phosphatase 158 H Total Protein 8.0 Albumin 4.3 Triglycerides Cholesterol LDL Cholesterol Direct VLDL Cholesterol HDL Cholesterol TSH 1.39 Free T4 0.81 Free T3 pg/mL 4.35 Urine Color Urine Appearance Urine pH Ur Specific [place] Urine Protein Urine Glucose (UA) Urine Ketones Urine Blood Urine Nitrite Ur Leukocyte Esterase Urine WBC (Auto) Urine RBC (Auto) 06/14/19 06/14/19 06/14/19 07:23 07:27 07:27 WBC 5.0 RBC 4.58 Hgb 13.8 Hct 40.1 MCV 88 MCH 30.2 MCHC 34.5 RDW 13.5 Plt Count 100 L Seg Neutrophils % Lymphocytes % Monocytes % Eosinophils % Basophils % Absolute Neutrophils Absolute Lymphocytes Absolute Monocytes Absolute Eosinophils Absolute Basophils Sodium 138.5 Potassium 4.3 Chloride 105 Carbon Dioxide 24 Anion Gap 10 BUN 12 Creatinine 0.52 Est GFR ( Amer) > 60 Est GFR (Non-Af Amer) > 60 Glucose 108 Calcium 8.9 Magnesium 1.9 Total Bilirubin AST ALT Alkaline Phosphatase Total Protein Albumin Triglycerides 110 Cholesterol 127.16 LDL Cholesterol Direct 83 VLDL Cholesterol 22.0 HDL Cholesterol 33 L TSH Free T4 Free T3 pg/mL Urine Color FREDDY Urine Appearance CLEAR Urine pH 6.0 Ur Specific [place] 1.028 Urine Protein NEGATIVE Urine Glucose (UA) NEGATIVE Urine Ketones NEGATIVE Urine Blood NEGATIVE Urine Nitrite NEGATIVE Ur Leukocyte Esterase NEGATIVE Urine WBC (Auto) 0 Urine RBC (Auto) 0 06/13/19 06/13/19 06/13/19 16:22 16:22 19:45 Creatine Kinase 141 CK-MB (CK-2) 1.71 Troponin I < 0.012 < 0.012 06/14/19 06/14/19 06/14/19 01:43 01:43 07:27 Creatine Kinase 94 96 CK-MB (CK-2) 0.85 Troponin I < 0.012 06/14/19 07:27 Creatine Kinase CK-MB (CK-2) 0.91 Troponin I < 0.012 Impressions: Chest X-Ray 06/13/19 16:09 IMPRESSION: NO ACUTE RADIOGRAPHIC FINDING IN THE CHEST. Assessment and Plan - Diagnosis (1) Chest pain Qualifiers: Chest pain type: other chest pain Qualified Code(s): R07.89 - Other chest pain; R07.8 - Other chest pain Is this a current diagnosis for this admission?: Yes Plan: We will trend his cardiac enzymes, repeat EKG and stress test in the morning. We will control his pain with nitroglycerin or Nitropaste. (2) Hypertension Qualifiers: Hypertension type: essential hypertension Qualified Code(s): I10 - Essential (primary) hypertension Is this a current diagnosis for this admission?: Yes Plan: Continue his home medication (3) Coronary artery disease Is this a current diagnosis for this admission?: Yes Plan: Patient is status post 2 stent placement.. I will continue his home medication.
[2019-06-14 14:33] LABS: CREATINE KINASE MB 1.03 ng/mL (<4.55)
[2019-06-14 14:36] LABS: TROPONIN I < 0.012 ng/mL
--- NOTE | 2019-06-14 16:16 | PDOC TRANSFER SUMMARY ---
General Admission Date/PCP: 06/13/19 21:29 RADHA FLORES NP Transfer Date: 06/14/19 Resuscitation Status: Full Code - Transfer Diagnosis (1) Chest pain Is this a current diagnosis for this admission?: Yes (2) Hypertension Is this a current diagnosis for this admission?: Yes (3) Coronary artery disease Is this a current diagnosis for this admission?: Yes - Transfer Medications Home Medications: Lisinopril [Prinivil 5 mg Tablet] 5 mg PO DAILY 02/07/18 Aspirin [Aspirin 81 mg Chewable Tablet] 81 mg PO DAILY 06/13/19 Atorvastatin Calcium [Lipitor 40 mg Tablet] 40 mg PO QHS 06/13/19 Clopidogrel Bisulfate [Plavix] 75 mg PO DAILY 06/13/19 Metformin HCl 1,000 mg PO BID 06/13/19 Metoprolol Tartrate [Lopressor 25 mg Tablet] 25 mg PO Q12 06/13/19 Transfer Medications: Current Medications Acetaminophen (Tylenol 325 Mg Tablet) 650 mg PO Q4HP PRN PRN Reason: For headache, pain or fever Stop: 07/13/19 21:14 Last Admin: 06/13/19 22:42 Dose: 650 mg Documented by: Al Hydrox/Mg Hydrox/Simethicone (Maalox Plus Susp 30 Udcup) 30 ml PO Q6HP PRN PRN Reason: HEARTBURN Stop: 07/13/19 21:06 Aspirin (Aspirin 81 Mg Chewable Tablet) 81 mg PO DAILY [facility] Stop: 07/14/19 09:59 Last Admin: 06/14/19 09:07 Dose: 81 mg Documented by: Atorvastatin Calcium (Lipitor 40 Mg Tablet) 40 mg PO QHS SHAYNE Stop: 07/13/19 21:59 Last Admin: 06/13/19 21:40 Dose: 40 mg Documented by: Clopidogrel Bisulfate (Plavix 75 Mg Tablet) 75 mg PO DAILY [facility] Stop: 07/14/19 09:59 Last Admin: 06/14/19 09:07 Dose: 75 mg Documented by: Dextrose (Dextrose Inj 50% Syringe (25 Gm/50 Ml)) 12.5 gm IV PRN PRN; Protocol PRN Reason: FOR BG 50-69 IN ALERT PATIENT Stop: 07/13/19 21:16 Dextrose (Dextrose Inj 50% Syringe (25 Gm/50 Ml)) 25 gm IV PRN PRN; Protocol PRN Reason: PER PROTOCOL Stop: 07/13/19 21:16 Docusate Sodium (Colace 100 Mg Capsule) 100 mg PO BID SHAYNE Stop: 07/14/19 09:59 Last Admin: 06/14/19 09:08 Dose: Not Given Documented by: Famotidine (Pepcid 20 Mg Tablet) 20 mg PO Q12 SHAYNE Stop: 07/13/19 21:59 Last Admin: 06/14/19 09:07 Dose: 20 mg Documented by: Glucagon (Glucagen Inj 1 Mg Vial) 1 mg IM PRN PRN; Protocol PRN Reason: Evaluate for BG < 70 Stop: 07/13/19 21:16 Glucose (Glutose 40% Gel 15 Gm Tube) 15 gm PO PRN PRN; Protocol PRN Reason: FOR BG 50-69 IN ALERT PATIENT Stop: 07/13/19 21:16 Glucose (Glutose 40% Gel 15 Gm Tube) 30 gm PO PRN PRN; Protocol PRN Reason: FOR BG < 50 IN ALERT PATIENT Stop: 07/13/19 21:16 Heparin Sodium (Porcine) (Heparin Inj 5,000 Units/Ml 1 Ml Syringe) 5,000 unit SUBCUT Q8 SHAYNE Stop: 07/13/19 21:59 Last Admin: 06/14/19 13:00 Dose: Not Given Documented by: Hydralazine HCl (Apresoline Inj/Pf 20 Mg/1 Ml Sdv) 20 mg IV Q4HP PRN PRN Reason: Give For Sbp > 160 / Dbp > 100 Stop: 07/13/19 21:14 Insulin Human Regular (Humulin R (Pyxis) Insulin 100 Unit/Ml 3ml) 0 - 15 unit SUBCUT ACHSP PRN; Protocol PRN Reason: PER PROTOCOL Stop: 07/13/19 21:14 Lisinopril (Prinivil 5 Mg Tablet) 5 mg PO DAILY SHAYNE Stop: 07/14/19 09:59 Last Admin: 06/14/19 09:09 Dose: Not Given Documented by: Magnesium Hydroxide (Milk Of Magnesia 30 Ml Udcup) 30 ml PO HSP PRN PRN Reason: FOR CONSTIPATION Stop: 07/13/19 21:06 Metformin HCl (Glucophage 500 Mg Tablet) 1,000 mg PO BIDACBS SHAYNE Stop: 07/14/19 07:59 Last Admin: 06/14/19 09:07 Dose: 1,000 mg Documented by: Metoprolol Tartrate (Lopressor 25 Mg Tablet) 25 mg PO Q12 [facility] Stop: 07/13/19 21:59 Last Admin: 06/14/19 09:08 Dose: Not Given Documented by: Metoprolol Tartrate (Lopressor Inj/Pf 5 Mg/5 Ml Sdv) 5 mg IV Q4HP PRN PRN Reason: Give For Sbp > 160 / Dbp > 100 Stop: 07/13/19 21:14 Morphine Sulfate (Morphine 10 Mg/Ml Inj) 2 mg IV Q2HP PRN PRN Reason: PAIN SCALE 1-2/5 Stop: 06/20/19 21:25 Morphine Sulfate (Morphine 10 Mg/Ml Inj) 3 mg IV Q2HP PRN PRN Reason: PAIN SCALE 3-4/5 Stop: 06/20/19 21:25 Last Admin: 06/14/19 06:47 Dose: 3 mg Documented by: Morphine Sulfate (Morphine 10 Mg/Ml Inj) 4 mg IV Q2HP PRN PRN Reason: PAIN SCALE 5/5 Stop: 06/20/19 21:26 Ondansetron HCl (Zofran Inj/Pf 4 Mg/2 Ml Sdv) 4 mg IV Q4HP PRN PRN Reason: FOR NAUSEA/VOMITING Stop: 07/13/19 21:06 Sodium Chloride (Saline Flush 2.5 Ml Monoject Prefil Syrin) 2.5 ml IV Q8 [facility] Stop: 07/13/19 21:59 Last Admin: 06/14/19 13:02 Dose: Not Given Documented by: Zolpidem Tartrate (Ambien 5 Mg Tablet) 10 mg PO HSP PRN PRN Reason: SLEEP OR INSOMNIA Stop: 06/20/19 21:06 - Allergies Allergies/Adverse Reactions: Iodinated Contrast- Oral and IV Dye [IV Dye, Iodine Containing] Allergy (Verified 06/13/19 15:49) Hospital Course Hospital Course: MICHEL YOST is a 54 year old male who presents the emergency room with a 2- day history of chest pain. Patient admits brief intermittent episodes of chest pain over the last 2 days, but developed an episode of chest pain beginning earlier this afternoon that has been persistent since onset. He describes the pain as a constant, moderate heaviness in the center of his chest with radiation into his jaw and left arm. The chest pain was accompanied by mild nausea without vomiting. He denies any other accompanying or associated symptoms. His pain was partially relieved by 1 dose of sublingual nitroglycerin and one aspirin which he took prior to calling EMS. He admits numerous prior similar episodes related to his coronary artery disease. He has not identified any aggravating or additional ameliorating factors for his chest pain. In the emergency room he was found to have an EKG that did not reflect evidence for acute myocardial ischemia or injury and his initial cardiac enzymes were negati ve. Dr. Enriquez was consulted by the emergency room physician and he asked that the patient be admitted to the hospitalist service for further evaluation and consultation to be performed by Dr. Enriquez. 06/14/2019:This is a 54 years old male patient with past medical history of coronary artery disease, hypertension, history of PE, presented with chief complaint of chest pain. He describes chest pain as squeezing and pressure-like and localized to his substernal and radiating to his jaw. His 2 sets of cardiac enzymes are negative. His previous cardiac catheterization disc was reviewed by Dr. Enriquez who concluded patient has mid distal LAD 70% blockage. He contacted Dr. Mejia who accepted the patient and patient is going to be transferred to [facility] in [place]. Physical Exam Vital Signs: Temp Pulse Resp BP Pulse Ox 97.9 F 67 20 110/72 99 06/14/19 12:00 06/14/19 14:00 06/14/19 12:00 06/14/19 12:00 06/14/19 12:00 Intake & Output 06/13/19 06/14/19 06/15/19 06:59 06:59 06:59 Intake Total 0 360 Output Total 0 300 Balance 0 60 Weight 119.3 kg General appearance: PRESENT: no acute distress Neck exam: ABSENT: carotid bruit, JVD, lymphadenopathy, thyromegaly Respiratory exam: PRESENT: clear to auscultation lizandro. ABSENT: rales, rhonchi, wheezes Cardiovascular exam: PRESENT: RRR. ABSENT: diastolic murmur, rubs, systolic murmur GI/Abdominal exam: PRESENT: normal bowel sounds, soft. ABSENT: distended, guarding, mass, organolmegaly, rebound, tenderness Neurological exam: PRESENT: alert, awake, oriented to person, oriented to place, oriented to time, oriented to situation Results Laboratory Results: 06/14/19 07:27 06/14/19 07:27 06/13/19 06/13/19 06/13/19 16:22 16:22 16:22 WBC 5.6 RBC 4.88 Hgb 14.8 Hct 42.6 MCV 87 MCH 30.3 MCHC 34.7 RDW 13.6 Plt Count 128 L Seg Neutrophils % 56.4 Lymphocytes % 27.5 Monocytes % 13.1 H Eosinophils % 2.3 Basophils % 0.7 Absolute Neutrophils 3.2 Absolute Lymphocytes 1.5 Absolute Monocytes 0.7 Absolute Eosinophils 0.1 Absolute Basophils 0.0 Sodium 141.0 Potassium 4.5 Chloride 105 Carbon Dioxide 26 Anion Gap 10 BUN 10 Creatinine 0.51 L Est GFR ( Amer) > 60 Est GFR (Non-Af Amer) > 60 Glucose 114 H Calcium 9.0 Magnesium Total Bilirubin 1.2 AST 62 H ALT 30 Alkaline Phosphatase 158 H Total Protein 8.0 Albumin 4.3 Triglycerides Cholesterol LDL Cholesterol Direct VLDL Cholesterol HDL Cholesterol TSH 1.39 Free T4 0.81 Free T3 pg/mL 4.35 Urine Color Urine Appearance Urine pH Ur Specific [place] Urine Protein Urine Glucose (UA) Urine Ketones Urine Blood Urine Nitrite Ur Leukocyte Esterase Urine WBC (Auto) Urine RBC (Auto) 06/14/19 06/14/19 06/14/19 07:23 07:27 07:27 WBC 5.0 RBC 4.58 Hgb 13.8 Hct 40.1 MCV 88 MCH 30.2 MCHC 34.5 RDW 13.5 Plt Count 100 L Seg Neutrophils % Lymphocytes % Monocytes % Eosinophils % Basophils % Absolute Neutrophils Absolute Lymphocytes Absolute Monocytes Absolute Eosinophils Absolute Basophils Sodium 138.5 Potassium 4.3 Chloride 105 Carbon Dioxide 24 Anion Gap 10 BUN 12 Creatinine 0.52 Est GFR ( Amer) > 60 Est GFR (Non-Af Amer) > 60 Glucose 108 Calcium 8.9 Magnesium 1.9 Total Bilirubin AST ALT Alkaline Phosphatase Total Protein Albumin Triglycerides 110 Cholesterol 127.16 LDL Cholesterol Direct 83 VLDL Cholesterol 22.0 HDL Cholesterol 33 L TSH Free T4 Free T3 pg/mL Urine Color FREDDY Urine Appearance CLEAR Urine pH 6.0 Ur Specific [place] 1.028 Urine Protein NEGATIVE Urine Glucose (UA) NEGATIVE Urine Ketones NEGATIVE Urine Blood NEGATIVE Urine Nitrite NEGATIVE Ur Leukocyte Esterase NEGATIVE Urine WBC (Auto) 0 Urine RBC (Auto) 0 06/13/19 06/13/19 06/13/19 16:22 16:22 19:45 Creatine Kinase 141 CK-MB (CK-2) 1.71 Troponin I < 0.012 < 0.012 06/14/19 06/14/19 06/14/19 01:43 01:43 07:27 Creatine Kinase 94 96 CK-MB (CK-2) 0.85 Troponin I < 0.012 06/14/19 06/14/19 06/14/19 07:27 13:44 13:44 Creatine Kinase 81 CK-MB (CK-2) 0.91 1.03 Troponin I < 0.012 < 0.012 Impressions: Chest X-Ray 06/13/19 16:09 IMPRESSION: NO ACUTE RADIOGRAPHIC FINDING IN THE CHEST.
[2019-06-14] MEDS ORDERED: PREDNISONE 20 MG TABLET PO ONE (16:18)
[2019-06-14] MEDS ORDERED: DIPHENHYDRAMINE HCL 25 MG CAPSULE PO ONE (16:19)
--- NOTE | 2019-06-14 19:03 | EKG REPORT ---
SEVERITY:- NORMAL ECG - SINUS RHYTHM : Confirmed by: Anne Enriquez MD 14-Jun-2019 19:02:36
[2019-06-14 20:27] VITALS: BP 115/48
--- NOTE | 2019-06-14 23:11 | PDOC CONSULTATION ---
Consultation-Blank Consultation: CARDIOLOGY CONSULTATION by Dr. Anne Enriquez on 06/14/2019. Patient seen at 12 noon. 75 minutes spent on this patient with more than 50% of time spent in direct patient care. This also involves the time taken to review the patient's cardiac catheterization CD and also discussions with the interventional c ardiologist Dr. Mejia of [facility] cardiology. REASON FOR CONSULTATION: Patient with known history of coronary artery disease and history of multiple stents with exertional angina. CONSULT REQUESTING PHYSICIAN: [facility] Nichols[facility] HISTORY PRESENT ILLNESS: Patient with known history of hypertension, obesity, diabetes mellitus, and coronary artery disease with history of 2 stents in the LAD in 2018, and 2 stents in the right coronary artery, with a residual 70% lesion in the junction of the mid/distal LAD states that since his last 2 days has been having intermittent exertional chest pressure/pain. This is associated with mild nausea without vomiting, and with some shortness of breath. The patient states yesterday he was working moving objects which was somewhat heavy and developed this substernal and retrosternal chest pressure/pain with shortness of breath and mild nausea. He states he felt that this was similar to his prior episodes which led to his stent placements. In spite of the patient prolonged chest pain the EMS gave him nitroglycerin and aspirin which eases. And subsequently he was pain-free in the emergency room. Since then he has not any any further chest pains. He denies any history of asthma or COPD. There is no history of congestive heart failure. There is no history of PND orthopnea leg edema. There is no palpitations, near-syncope or syncope. He denies any dizziness or generalized weakness. Of note the patient was admitted to [facility] with chest pain in 2018 at which point he had a negative work- up for myocardial infarction. He had a stress test which showed reversible ischemia in the LV apex. He was transferred to [facility] where he had 2 stents placed in the LAD. Subsequently the patient is doing well and again when he was visiting [place] he was admitted to [facility] with chest pains the patient states that he did not have a myocardial infarction, but had a repeat cardiac catheterization which showed that there was a proximal/mid tubular long significant right coronary artery lesion which was stented with 2 stents. At that time the LAD stents were patent but in the junction of the mid and apical LAD segment there was a focal 70% stenosis. Since a lot of contrast was used for the right coronary artery intervention I think the LAD was not done at that setting. It was not done as a staged procedure, since the patient had to come back to [place] from [place]. He has a past history of thrombocytopenia and was seen by hematology who cleared him for dual antiplatelet therapy, and he has not had any bleeding complications. He has no history of chronic kidney disease. Past Medical History Cardiac Medical History: Reports: Coronary Artery Disease, Hypertension, Pulmonary Embolism.No History of WA,CHF ,or arrhythmias. Denies: Congestive Heart Failure, DVT, Myocardial Infarction, Peripheral Vascular Disease, Heart Murmur Pulmonary Medical History: Denies: Asthma, Chronic Obstructive Pulmonary Disease (COPD), Respiratory Failure, Sleep Apnea EENT Medical History: Denies: Cataracts, Ears - Hearing aids Neurological Medical History: Denies: Hemorrhagic CVA, Ischemic CVA, Multiple Sclerosis, Seizures Endocrine Medical History: Reports: Diabetes Mellitus Type 2 Denies: Diabetes Mellitus Type 1, Hyperthyroidism, Hypothyroidism Renal/ Medical History: Denies: Chronic Kidney Disease, Nephrolithiasis Malignancy Medical History: Reports: None GI Medical History: Reports: Gastroesophageal Reflux Disease Denies: Cirrhosis, Crohn's Disease, Hepatitis, Ulcerative Colitis Musculoskeltal Medical History: Reports: Arthritis - 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 Denies: Fibromyalgia, Gout Skin Medical History: Denies: Eczema, Psoriasis Psychiatric Medical History: Reports: Alcohol Dependency, Depression Denies: Substance Abuse, Tobacco Dependency Traumatic Medical History: Reports: None Hematology: Denies: Anemia, Bleeding Tendencies Infectious Medical History: Reports: None Past Surgical History Past Surgical History: Reports: Cardiac Catheterization, Coronary Stent - 2 episodes, received 2 stents with each episode Social History Information Source: Patient Lives with: Spouse/Significant other Smoking Status: Never Smoker Frequency of Alcohol Use: None - History of alcohol abuse, but quit more than 20 years ago. Occasionally has a beer, but consumes less than 6 beers per month. Hx Recreational Drug Use: No Drugs: None Hx Prescription Drug Abuse: No - Advance Directive Resuscitation Status: Full Code Surrogate healthcare decision maker:: His Ms.Clarissa Diaz Family History Family History: CAD in multiple members fo his family., DM, Hypertension, Malignancy Medication/Allergy Home Medications: Lisinopril [Prinivil 5 mg Tablet] 5 mg PO DAILY 02/07/18 Insulin Lispro [Humalog Insulin (Lispro) 100 unit/mL] 0 - 12 unit SUBCUT ACHSP PRN unit 02/08/18 Aspirin [Aspirin 81 mg Chewable Tablet] 81 mg PO DAILY 06/13/19 Atorvastatin Calcium [Lipitor 40 mg Tablet] 40 mg PO QHS 06/13/19 Clopidogrel Bisulfate [Plavix] 75 mg PO DAILY 06/13/19 Metformin HCl 1,000 mg PO BID 06/13/19 Metoprolol Tartrate [Lopressor 25 mg Tablet] 25 mg PO Q12 06/13/19 Allergies/Adverse Reactions: Iodinated Contrast- Oral and IV Dye [IV Dye, Iodine Containing] Review of Systems Constitutional: ABSENT: chills, fever(s) Eyes: ABSENT: visual disturbances, other - Eye pain Ears: ABSENT: hearing changes, other - Ear pain Nose, Mouth, and Throat: ABSENT: mouth pain, sore throat Cardiovascular: PRESENT: chest pain. ABSENT: dyspnea on exertion, edema, orthropnea, palpitations Respiratory: ABSENT: cough, dyspnea Gastrointestinal: PRESENT: nausea. ABSENT: abdominal pain, constipation, diarrhea, vomiting Genitourinary: ABSENT: dysuria, hematuria Musculoskeletal: PRESENT: back pain - Chronic. ABSENT: joint swelling, muscle weakness Integumentary: ABSENT: pruritus, rash Neurological: ABSENT: confusion, convulsions, focal weakness, memory loss, syncope Psychiatric: ABSENT: anxiety, depression Endocrine: ABSENT: cold intolerance, heat intolerance Hematologic/Lymphatic: ABSENT: easy bleeding, easy bruising PHYSICAL EXAMINATION: The patient is moderately obese. At present in no acute distress. He is well-groomed Selected Entries 06/14/19 06/14/19 12:00 14:00 Temperature 97.9 F Temperature Oral Source Pulse Rate 67 Respiratory 20 Rate Blood Pressure 110/72 [Left Upper Arm ] Blood Pressure 84 Mean [Left Upper Arm] Blood Pressure Sitting Position [Left Upper Arm] O2 Sat by Pulse 99 Oximetry Oxygen Flow 2 Rate HEAD: Is atraumatic and normocephalic. EYES: Pupils equal round regular reactive to light and accommodation. Extraocular movements are normal. There is no conjunctival pallor. There is no scleral icterus. EARS: Tympanic membranes are intact, external auditory canals are clear. NOSE: There is no deviated nasal septum. There is no inflammation of the nasal mucous membrane. MOUTH: Mucous membranes of mouth are moist tongue is moist there is no ulcers there is no bleeding from the gums. THROAT: There is no redness of the oropharynx. There is no exudates. SKIN: There is no skin rashes there is no particular ecchymosis, and there is no skin lesions. NECK: Is supple. There is no JVD. Carotids equal there is no bruits. There is no lymphadenopathy. There is no goiter. There is no accessory muscle respiration use. Trachea central. LUNGS: Is clear to auscultation percussion, without any rhonchi rales wheezing. On palpation there is no chest wall tenderness. HEART: S1-S2 is heard. There is no S3 gallop. There is no S4 gallop. There is systolic murmur left sternal border and the apex there is no rub. ABDOMEN: Is obese. Nontender. There is no hepatospleno megaly. Bowel sounds are well heard. EXTREMITIES: Femorals are deep femorals are slightly reduced. Leg pulses are well felt. There is no pedal edema. There is no DVT or cellulitis. There is no cyanosis or clubbing. CERTIFIED ORTHOTIST: The patient is conscious awake alert oriented x3. PSYCHIATRIC: Patient judgment insight are intact his affect is normal. His serial EKGs are within normal limits x2. His CATH CD was reviewed. This was a cat he had an April 2019. This was when the right coronary artery had 2 stents put in the proximal mid long tubular lesion. At that time his cath also showed at the junction of the mid and distal LAD a 70% focal stenosis. This was not addressed in [place], [place] since a lot of contrast was used for the intervention of the right coronary artery. This is per patient patient's . But the patient did not stay for a staged procedure since he had to come back to [place]. The cardiac catheterization CD disc was uploaded to [facility] via the PACS system. This was done after I discussed the case with the heel slugger Dr. Mejia. Please see below. Current Medications Discontinued Medications Generic Name Dose Route Start Last Admin Trade Name Freq PRN Reason Stop Dose Admin Acetaminophen 650 mg 06/13/19 21:15 06/13/19 22:42 Tylenol 325 Mg Tablet PO 07/13/19 21:14 650 mg Q4HP PRN Administration For headache, pain or fever Al Hydrox/Mg Hydrox/Simethicone 30 ml 06/13/19 21:07 Maalox Plus Susp 30 Udcup PO 07/13/19 21:06 Q6HP PRN HEARTBURN Aspirin 81 mg 06/14/19 10:00 06/14/19 09:07 Aspirin 81 Mg Chewable Tablet PO 07/14/19 09:59 81 mg DAILY SHAYNE Administration Atorvastatin Calcium 40 mg 06/13/19 22:00 06/13/19 21:40 Lipitor 40 Mg Tablet PO 07/13/19 21:59 40 mg QHS SHAYNE Administration Clopidogrel Bisulfate 75 mg 06/14/19 10:00 06/14/19 09:07 Plavix 75 Mg Tablet PO 07/14/19 09:59 75 mg DAILY SHAYNE Administration Dextrose 12.5 gm 06/13/19 21:17 Dextrose Inj 50% Syringe (25 Gm/50 Ml) IV 07/13/19 21:16 PRN PRN FOR BG 50-69 IN ALERT PATIENT Protocol Dextrose 25 gm 06/13/19 21:17 Dextrose Inj 50% Syringe (25 Gm/50 Ml) IV 07/13/19 21:16 PRN PRN PER PROTOCOL Protocol Diphenhydramine HCl 25 mg 06/14/19 16:19 06/14/19 18:03 Benadryl 25 Mg Capsule PO 06/14/19 16:20 25 mg NOW ONE Administration Docusate Sodium 100 mg 06/14/19 10:00 06/14/19 16:59 Colace 100 Mg Capsule PO 07/14/19 09:59 Not Given BID SHAYNE Famotidine 20 mg 06/13/19 22:00 06/14/19 09:07 Pepcid 20 Mg Tablet PO 07/13/19 21:59 20 mg Q12 SHAYNE Administration Glucagon 1 mg 06/13/19 21:17 Glucagen Inj 1 Mg Vial IM 07/13/19 21:16 PRN PRN Evaluate for BG < 70 Protocol Glucose 15 gm 06/13/19 21:17 Glutose 40% Gel 15 Gm Tube PO 07/13/19 21:16 PRN PRN FOR BG 50-69 IN ALERT PATIENT Protocol Glucose 30 gm 06/13/19 21:17 Glutose 40% Gel 15 Gm Tube PO 07/13/19 21:16 PRN PRN FOR BG < 50 IN ALERT PATIENT Protocol Heparin Sodium (Porcine) 5,000 unit 07/13/19 22:00 06/14/19 13:00 Heparin Inj 5,000 Units/Ml 1 Ml Syringe SUBCUT 07/13/19 21:59 Not Given Q8 SHAYNE Hydralazine HCl 20 mg 06/13/19 21:15 Apresoline Inj/Pf 20 Mg/1 Ml Sdv IV 07/13/19 21:14 Q4HP PRN Give For Sbp > 160 / Dbp > 100 Insulin Human Regular 0 - 15 unit 06/13/19 21:15 Humulin R (Pyxis) Insulin 100 Unit/Ml 3ml SUBCUT 07/13/19 21:14 ACHSP PRN PER PROTOCOL Protocol Lisinopril 5 mg 06/14/19 10:00 06/14/19 09:09 Prinivil 5 Mg Tablet PO 07/14/19 09:59 Not Given DAILY SHAYNE Magnesium Hydroxide 30 ml 06/13/19 21:07 Milk Of Magnesia 30 Ml Udcup PO 07/13/19 21:06 HSP PRN FOR CONSTIPATION Metformin HCl 1,000 mg 06/14/19 08:00 06/14/19 16:12 Glucophage 500 Mg Tablet PO 07/14/19 07:59 1,000 mg [facility] Administration Metoprolol Tartrate 25 mg 06/13/19 22:00 06/14/19 09:08 Lopressor 25 Mg Tablet PO 07/13/19 21:59 Not Given Q12 SHAYNE Metoprolol Tartrate 5 mg 06/13/19 21:15 Lopressor Inj/Pf 5 Mg/5 Ml Sdv IV 07/13/19 21:14 Q4HP PRN Give For Sbp > 160 / Dbp > 100 Morphine Sulfate 2 mg 06/13/19 21:26 Morphine 10 Mg/Ml Inj IV 06/20/19 21:25 Q2HP PRN PAIN SCALE 1-2/5 Morphine Sulfate 3 mg 06/13/19 21:26 06/14/19 06:47 Morphine 10 Mg/Ml Inj IV 06/20/19 21:25 3 mg Q2HP PRN Administration PAIN SCALE 3-4/5 Morphine Sulfate 4 mg 06/13/19 21:27 Morphine 10 Mg/Ml Inj IV 06/20/19 21:26 Q2HP PRN PAIN SCALE 5/5 Nitroglycerin 1 gm 06/13/19 21:30 06/13/19 21:40 Nitrol 2% Ointment 1gm Packet TP 07/13/19 21:29 1 gm Q6H SHAYNE Administration Ondansetron HCl 4 mg 06/13/19 21:07 Zofran Inj/Pf 4 Mg/2 Ml Sdv IV 07/13/19 21:06 Q4HP PRN FOR NAUSEA/VOMITING Prednisone 60 mg 06/14/19 16:18 06/14/19 18:03 Deltasone 20 Mg Tablet PO 06/14/19 16:19 60 mg NOW ONE Administration Sodium Chloride 2.5 ml 06/13/19 22:00 06/14/19 13:02 Saline Flush 2.5 Ml Monoject Prefil Syrin IV 07/13/19 21:59 Not Given Q8 SHAYNE Zolpidem Tartrate 10 mg 06/13/19 21:07 Ambien 5 Mg Tablet PO 06/20/19 21:06 HSP PRN SLEEP OR INSOMNIA Labs- Last Values WBC 5.0 10^3/uL (4.0-10.5) 06/14/19 07:27 RBC 4.58 10^6/uL (4.35-5.55) 06/14/19 07:27 Hgb 13.8 g/dL (13.5-17.0) 06/14/19 07:27 Hct 40.1 % (37.9-51.0) 06/14/19 07:27 MCV 88 fl (80-97) 06/14/19 07:27 MCH 30.2 pg (27.0-33.4) 06/14/19 07:27 MCHC 34.5 g/dL (32.0-36.0) 06/14/19 07:27 RDW 13.5 % (11.5-14.0) 06/14/19 07:27 Plt Count 100 10^3/uL (150-450) L 06/14/19 07:27 Seg Neutrophils % 56.4 % (42-78) 06/13/19 16:22 Lymphocytes % 27.5 % (13-45) 06/13/19 16:22 Monocytes % 13.1 % (3-13) H 06/13/19 16:22 Eosinophils % 2.3 % (0-6) 06/13/19 16:22 Basophils % 0.7 % (0-2) 06/13/19 16:22 Absolute Neutrophils 3.2 10^3/uL (1.7-8.2) 06/13/19 16:22 Absolute Lymphocytes 1.5 10^3/uL (0.5-4.7) 06/13/19 16:22 Absolute Monocytes 0.7 10^3/uL (0.1-1.4) 06/13/19 16:22 Absolute Eosinophils 0.1 10^3/uL (0.0-0.6) 06/13/19 16:22 Absolute Basophils 0.0 10^3/uL (0.0-0.2) 06/13/19 16:22 Sodium 138.5 mmol/L (137-145) 06/14/19 07:27 Potassium 4.3 mmol/L (3.6-5.0) 06/14/19 07:27 Chloride 105 mmol/L (98-107) 06/14/19 07:27 Carbon Dioxide 24 mmol/L (22-30) 06/14/19 07:27 Anion Gap 10 (5-19) 06/14/19 07:27 BUN 12 mg/dL (7-20) 06/14/19 07:27 Creatinine 0.52 mg/dL (0.52-1.25) 06/14/19 07:27 Est GFR ( Amer) > 60 (>60) 06/14/19 07:27 Est GFR (Non-Af Amer) > 60 (>60) 06/14/19 07:27 Glucose 108 mg/dL (75-110) 06/14/19 07:27 POC Glucose 121 mg/dL (70-110) H 06/14/19 16:42 Hemoglobin A1c % 6.0 % (4.7-6.0) 06/14/19 07:27 Calcium 8.9 mg/dL (8.4-10.2) 06/14/19 07:27 Magnesium 1.9 mg/dL (1.6-2.3) 06/14/19 07:27 Total Bilirubin 1.2 mg/dL (0.2-1.3) 06/13/19 16:22 Direct Bilirubin 0.4 mg/dL (0.0-0.4) 06/13/19 16:22 Neonat Total Bilirubin Not Reportable 06/13/19 16:22 Neonat Direct Bilirubin Not Reportable 06/13/19 16:22 Neonat Indirect Bili Not Reportable 06/13/19 16:22 AST 62 U/L (17-59) H 06/13/19 16:22 ALT 30 U/L (21-72) 06/13/19 16:22 Alkaline Phosphatase 158 U/L (38-126) H 06/13/19 16:22 Creatine Kinase 81 U/L (55-170) 06/14/19 13:44 CK-MB (CK-2) 1.03 ng/mL (<4.55) 06/14/19 13:44 Troponin I < 0.012 ng/mL 06/14/19 13:44 Total Protein 8.0 g/dL (6.3-8.2) 06/13/19 16:22 Albumin 4.3 g/dL (3.5-5.0) 06/13/19 16:22 Triglycerides 110 mg/dL (<150) 06/14/19 07:27 Cholesterol 127.16 mg/dL (0-200) 06/14/19 07:27 LDL Cholesterol Direct 83 mg/dL (<100) 06/14/19 07:27 VLDL Cholesterol 22.0 mg/dL (10-31) 06/14/19 07:27 HDL Cholesterol 33 mg/dL (>40) L 06/14/19 07:27 TSH 1.39 uIU/mL (0.47-4.68) 06/13/19 16:22 Free T4 0.81 ng/dL (0.78-2.19) 06/13/19 16:22 Free T3 pg/mL 4.35 pg/mL (2.77-5.27) 06/13/19 16:22 Urine Color FREDDY 06/14/19 07:23 Urine Appearance CLEAR 06/14/19 07:23 Urine pH 6.0 (5.0-9.0) 06/14/19 07:23 Ur Specific Heron 1.028 06/14/19 07:23 Urine Protein NEGATIVE mg/dL (NEGATIVE) 06/14/19 07:23 Urine Glucose (UA) NEGATIVE mg/dL (NEGATIVE) 06/14/19 07:23 Urine Ketones NEGATIVE mg/dL (NEGATIVE) 06/14/19 07:23 Urine Blood NEGATIVE (NEGATIVE) 06/14/19 07:23 Urine Nitrite NEGATIVE (NEGATIVE) 06/14/19 07:23 Urine Bilirubin NEGATIVE (NEGATIVE) 06/14/19 07:23 Urine Urobilinogen 4.0 mg/dL (<2.0) H 06/14/19 07:23 Ur Leukocyte Esterase NEGATIVE (NEGATIVE) 06/14/19 07:23 Urine WBC (Auto) 0 /HPF 06/14/19 07:23 Urine RBC (Auto) 0 /HPF 06/14/19 07:23 Urine Mucus (Auto) FEW /LPF 06/14/19 07:23 Urine Ascorbic Acid NEGATIVE (NEGATIVE) 06/14/19 07:23 Urine Opiates Screen UNCONFIRMED POSITIVE 06/14/19 07:23 Urine Methadone Screen NEGATIVE 06/14/19 07:23 Ur Barbiturates Screen NEGATIVE 06/14/19 07:23 Ur Phencyclidine Scrn NEGATIVE 06/14/19 07:23 Ur Amphetamines Screen NEGATIVE 06/14/19 07:23 U Benzodiazepines Scrn NEGATIVE 06/14/19 07:23 Urine Cocaine Screen NEGATIVE 06/14/19 07:23 U Marijuana (THC) Screen UNCONFIRMED POSITIVE 06/14/19 07:23 Chest X-Ray 06/13/19 16:09 IMPRESSION: NO ACUTE RADIOGRAPHIC FINDING IN THE CHEST. IMPRESSION/RECOMMENDATION: 1. Exertional angina in a patient with history of coronary artery disease, history of 2 stents in the LAD in 2017, and 2 stents to the proximal mid right coronary artery in April 2019, with the latter cath showing a 70% focal stenosis at the junction of the mid and distal LAD. Hence would recommend transfer to tertiary care center for cardiac catheterization and possible intervention of the LAD lesion, and also to confirm that there is no in-stent restenosis. This has been discussed with the patient. I have discussed the case with Dr. Mejia in [facility] cardiology. For his view I had to uploaded the cardiac catheterization CD to the PACS system so he could review it. He was having difficulty. But after my discussions he asked me to transfer the patient for further management. The patient are aware of the risks and benefits and complications that can occur during the transfer. Note aggressive treatment is indicated in this patient since the patient has had physical labor. Continue his current medications including aspirin and Plavix. On detailed questioning the patient has not had any missed doses of aspirin or Plavix, since his stents in the right coronary artery. This admission there is no evidence of myocardial infarction by cardiac biomarkers or by EKG. In fact the EKG appears to be within normal limits serially. 2. Coronary artery disease. Recent exertional anginal symptoms. No history of WA. History of 2 stents in the LAD in 2018 after positive stress test showing apical reversible ischemia. And subsequently 2 stents in the right coronary artery in 2019 in [facility]. At this time the cath also showed a significant LAD lesion as mentioned above. 3. Hypertension: Blood pressure well controlled continue current medication. 4. Diabetes mellitus: Continue current antidiabetic med regimen and Accu-Cheks as ordered. 5. Hyperlipidemia: Continue statins. 6. Past history of thrombocytopenia, but the patient's platelets have been stable on double platelet therapy. 7. Contrast allergy. We will start the patient with steroids and Benadryl, in anticipation of cardiac catheterization. Note that the patient has done well in the past with pretreatment for his contrast allergy with steroids and H1 blockers and Benadryl. Medications reviewed. Management plan discussed with the patient and with the patient's , and they are agreeable for transfer. Discussed with attending physician on the case. Medical decision making is of high complexity. The patient is fully aware of the procedure and risks and complications of cardiac catheterization since he has had several in the past. My contact number has been given to the patient to follow-up with me if he so desires after his discharge from [facility]
== END 2019-06-14 20:30 | disposition short-term general hospital (02) ==
LOC: ER 15:45 → INTOOBSV 21:29 → EH 21:29 → 4N 22:26
PROVIDERS: ADMIT Emergency Medicine; ATTEND Emergency Medicine
DX: R07.89 Other chest pain (principal); I10 Essential (primary) hypertension; I25.118 Atherosclerotic heart disease of native coronary artery with other forms of angina pectoris; R11.0 Nausea; E11.9 Type 2 diabetes mellitus without complications; R06.02 Shortness of breath; E66.9 Obesity, unspecified; E78.5 Hyperlipidemia, unspecified; M13.88 Other specified arthritis, other site; Z79.82 Long term (current) use of aspirin; Z79.899 Other long term (current) drug therapy; Z79.84 Long term (current) use of oral hypoglycemic drugs; Z79.02 Long term (current) use of antithrombotics/antiplatelets; Z86.711 Personal history of pulmonary embolism; Z95.5 Presence of coronary angioplasty implant and graft; Z86.2 Personal history of diseases of the blood and blood-forming organs and certain disorders involving the immune mechanism; Z82.49 Family history of ischemic heart disease and other diseases of the circulatory system; Z91.041 Radiographic dye allergy status; Z87.19 Personal history of other diseases of the digestive system; Z87.442 Personal history of urinary calculi
CPT/HCPCS: 93005 ×2; 99285; 36415 ×2; 84439; 82553 ×2; 82962 ×2; 82550 ×2; 83735; 84443; 85025; 85027; 80048; 80053; 81001; 84484 ×2; 80307; 84481; 83036; 80061; 71045; 93010 ×2; G0378 ×3; G0480 ×2; J1644; J2270; J7512; J3490 ×2; 80349

== ENCOUNTER → 2019-09-15 | Outpatient (CLI) | payer SELFPAY ==
[2019-09-15 10:53] LABS: ABSOLUTE EOSINOPHILS # (AUTO) 0.2 10^3/uL (0.0-0.6); ABSOLUTE LYMPHOCYTES (AUTO) 1.4 10^3/uL (0.5-4.7); ABSOLUTE MONOCYTES (AUTO) 0.5 10^3/uL (0.1-1.4); BASOPHILS % (AUTO) 0.5 % (0-2); EOSINOPHILS % (AUTO) 4.3 % (0-6); HEMATOCRIT 36.4 % (37.9-51.0); HEMOGLOBIN 12.4 g/dL (13.5-17.0); LYMPHOCYTES % (AUTO) 33.8 % (13-45); MEAN CORPUSCULAR HEMOGLOBIN 27.1 pg (27.0-33.4); MEAN CORPUSCULAR VOLUME 80 fl (80-97); PLATELET COUNT 126 10^3/uL (150-450); RED BLOOD COUNT 4.57 10^6/uL (4.35-5.55); RED CELL DISTRIBUTION WIDTH 14.9 % (11.5-14.0); SEGMENTED NEUTROPHILS % (AUTO) 49.4 % (42-78); TOTAL CELLS COUNTED % (AUTO) 100 %; WHITE BLOOD COUNT 4.1 10^3/uL (4.0-10.5)
[2019-09-15 10:59] LABS: INTERNATIONAL RATION (INR) 1.05; PROTHROMBIN TIME 13.7 SEC (11.4-15.4)
[2019-09-15 11:00] LABS: PARTIAL THROMBOPLASTIN TIME 30.5 SEC (23.5-35.8)
[2019-09-15 11:31] LABS: ALBUMIN 3.9 g/dL (3.5-5.0); ALKALINE PHOSPHATASE 156 U/L (38-126); ASPARTATE AMINO TRANSFERASE 53 U/L (17-59); BILIRUBIN,DIRECT 0.2 mg/dL (0.0-0.4); BILIRUBIN,TOTAL 0.5 mg/dL (0.2-1.3); TOTAL PROTEIN 7.2 g/dL (6.3-8.2)
== END ==
LOC: OD 10:03
PROVIDERS: ATTEND Specialist
DX: I25.10 Atherosclerotic heart disease of native coronary artery without angina pectoris (principal); Z98.61 Coronary angioplasty status; I10 Essential (primary) hypertension; E78.5 Hyperlipidemia, unspecified; E11.9 Type 2 diabetes mellitus without complications; Z95.1 Presence of aortocoronary bypass graft; Z79.899 Other long term (current) drug therapy
CPT/HCPCS: 36415; 80076; 83036; 85025; 85610; 85730

== ENCOUNTER 2020-08-19 17:17 | Emergency (ER) | payer MEDICAID ==
[2020-08-19 18:02] LABS: ALKALINE PHOSPHATASE 127 U/L (38-126); ANION GAP 7 (5-19); ASPARTATE AMINO TRANSFERASE 51 U/L (17-59); BILIRUBIN,DIRECT 0.3 mg/dL (0.0-0.4); BILIRUBIN,TOTAL 0.7 mg/dL (0.2-1.3); BLOOD UREA NITROGEN 11 mg/dL (7-20); CALCIUM 9.3 mg/dL (8.4-10.2); CARBON DIOXIDE 27 mmol/L (22-30); CHLORIDE 105 mmol/L (98-107); CREATINE KINASE 180 U/L (55-170); GLUCOSE 98 mg/dL (75-110); POTASSIUM 4.4 mmol/L (3.6-5.0); TOTAL PROTEIN 6.9 g/dL (6.3-8.2)
--- NOTE | 2020-08-19 18:03 | ER Document Report ---
ED General - General Chief Complaint: Chest Pain Stated Complaint: CHEST PAIN Time Seen by Provider: 08/19/20 17:34 Primary Care Provider: NICHOLAS GAMBINO MD [Primary Care Provider] - Follow up as needed Information source: Patient, Relative - Kelsea Notes: 08/19/20 17:41 - ED Nursing Note by [facility]: [id number] : 1965 Patient Age: 55 Patient to the ED with chest pain. 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 Patient thought it may be from wearing a mask so he took it off and rested. Started having pain in his chest and then in his L arm. EMS was called. Patient was given ASA, NTG SL. A gtt was initiated but discontinued upon arrival to the ED by EMS. At this time patient denies any pain or SOB. Is speaking in full sentences. Initialized on 08/19/20 17:41 - END OF NOTE MY NOTES 55-year-old male arrives by EMS after receiving nitroglycerin spray and aspirin per EMS. Patient had a 7 out of 10 chest pain anteriorly with radiation into left arm with associated shortness of breath but denies any nausea or diaphoresis. He was unloading an 18 [address] truck for [employer] at his job for 1 hour when this occurred. Usually it takes around 2 hours to completely unload the trucks. Patient has a history of a CABG several years ago by Dr. Miguel. 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 He has no chest pain at this present time upon my examination at 1750. Patient has a prior history of hypertension CAD NIDDM as well as unstable angina obesity. Kelsea his is by his side. Patient is on Brilinta aspirin Flomax metoprolol 50 mg twice daily Metformin 1000 twice daily and aspirin. TRAVEL OUTSIDE OF THE [place] 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 - Related Data Allergies/Adverse Reactions: Iodinated Contrast Media [IV Dye, Iodine Containing] Allergy (Verified 06/13/19 15:49) Home Medications: Brelenta Past Medical History - General Information source: Patient, Emergency Med Personnel - Social History Smoking Status: Never Smoker Cigarette use (# per day): No Chew tobacco use (# tins/day): No Smoking Education Provided: No Frequency of alcohol use: None Drug Abuse: None Lives with: Family Family History: CAD, DM, Hypertension, Malignancy Patient has suicidal ideation: No Patient has homicidal ideation: No - Past Medical History Cardiac Medical History: Reports: Hx Coronary Artery Disease, Hx Hypertension, Hx Pulmonary Embolism Denies: Hx Congestive Heart Failure, Hx DVT, Hx Heart Attack, Hx Peripheral Vascular Disease, Hx Heart Murmur Pulmonary Medical History: Denies: Hx Asthma, Hx COPD, Hx Respiratory Failure, Hx Sleep Apnea, Hx Tuberc ulosis Neurological Medical History: Denies: Hx Seizures Endocrine Medical History: Reports: Hx Diabetes Mellitus Type 2. Denies: Hx Diabetes Mellitus Type 1, Hx Hyperthyroidism, Hx Hypothyroidism Renal/ Medical History: Reports: Hx Kidney Stones. Denies: Hx Peritoneal Dialysis GI Medical History: Reports: Hx Gastroesophageal Reflux Disease. 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, Denies Hx Fibromyalgia, Denies Hx Gout Skin Medical History: Denies Hx Eczema, Denies Hx Psoriasis Psychiatric Medical History: Reports: Hx Depression Infectious Medical History: Denies: Hx Hepatitis Past Surgical History: Reports: Hx Cardiac Catheterization, Hx Cardiac Surgery - 2 stents placed, Hx Coronary Stent - 2 episodes, received 2 stents with each episode - Immunizations Immunizations up to date: Yes Hx Diphtheria, Pertussis, Tetanus Vaccination: Yes Hx Pneumococcal Vaccination: 11/26/13 Review of Systems - Review of Systems Constitutional: No symptoms reported EENT: No symptoms reported Cardiovascular: See HPI, Chest pain Respiratory: See HPI, Short of breath Gastrointestinal: No symptoms reported Genitourinary: No symptoms reported Male Genitourinary: No symptoms reported Musculoskeletal: No symptoms reported Skin: No symptoms reported Hematologic/Lymphatic: No symptoms reported Neurological/Psychological: No symptoms reported Physical Exam - Vital signs Vitals: Pulse Ox 97 08/19/20 17:30 Interpretation: Normal - HEENT Head: Normocephalic, Atraumatic Eyes: Normal Pupils: PERRL Sinus: Normal Nasal: Normal Mouth/Lips: Normal Mucous membranes: Normal Pharynx: Normal Neck: Normal - Respiratory Respiratory status: No respiratory distress Chest status: Nontender Breath sounds: Normal Chest palpation: Normal - Cardiovascular Rhythm: Regular Heart sounds: Normal auscultation Murmur: No - Abdominal Inspection: Normal Distension: No distension Bowel sounds: Normal Tenderness: Nontender Organomegaly: No organomegaly - Rectal Prostate: Other - deferred - Genitourinary Scrotum: Other - deferred - Back Back: Normal - Extremities General upper extremity: Normal inspection General lower extremity: Normal inspection - Neurological Neuro grossly intact: Yes Cognition: Normal Orientation: AAOx4 Jonathon Coma Scale Eye Opening: Spontaneous Goodyear Coma Scale Verbal: Oriented Goodyear Coma Scale Motor: Obeys Commands Goodyear Coma Scale Total: 15 Speech: Normal Motor strength normal: LUE, RUE, LLE, RLE Sensory: Normal - Psychological Associated symptoms: Normal affect - Skin Skin Temperature: Warm Skin Moisture: Dry Course - Vital Signs Vital signs: Temp Pulse Resp BP Pulse Ox 20 121/57 L 98 08/19/20 21:01 08/19/20 21:01 08/19/20 21:01 - Laboratory Result Diagrams: 08/19/20 18:55 08/19/20 17:26 Laboratory results interpreted by me: 08/19/20 08/19/20 17:26 18:55 Hgb 12.6 L Hct 36.1 L RDW 16.5 H Plt Count 71 L Alkaline Phosphatase 127 H Creatine Kinase 180 H - Diagnostic Test Radiology reviewed: Reports reviewed - EKG Interpretation by Me EKG shows normal: Sinus rhythm Rate: Normal Rhythm: NSR Critical Care Note - Critical Care Note Comments: I spoke with Dr. Gambino at 1816 and he advises following up in office with him if the second troponin proves negative. We will call him if the second troponin comes back positive. Return troponin was 0.[address] Gambino at 2109 and advised him of this case. He advised patient to see him next week in office. His phone number is [phone] Discharge - Discharge Clinical Impression: Chest pain due to CAD Condition: Good Disposition: HOME, SELF-CARE Additional Instructions: Follow-up with Dr. Gambino next week. Call him if there are any problems. [phone]. Return to ER as needed continue with your current medications. Forms: Return to Work Referrals: NICHOLAS GAMBINO MD [Primary Care Provider] - Follow up as needed
--- NOTE | 2020-08-19 18:11 | RADIOLOGY REPORT (SQ) ---
EXAM DESCRIPTION: CHEST SINGLE VIEW IMAGES COMPLETED DATE/TIME: 08/19/2020 5:54 pm REASON FOR STUDY: chest pain SOB COMPARISON: 06/13/2019 EXAM PARAMETERS: NUMBER OF VIEWS: One view. TECHNIQUE: Single frontal radiographic view of the chest acquired. RADIATION DOSE: NA LIMITATIONS: None. FINDINGS: LUNGS AND PLEURA: No opacities, masses or pneumothorax. No pleural effusion. MEDIASTINUM AND HILAR STRUCTURES: No masses. Contour normal. HEART AND VASCULAR STRUCTURES: Heart size is borderline. There is no pulmonary edema. BONES: No acute findings. HARDWARE: Sternotomy wires. Graft markers. OTHER: No other significant finding. IMPRESSION: Borderline heart size without pulmonary edema. TECHNICAL DOCUMENTATION: JOB ID: [id number] 2010 [employer]- All Rights Reserved Reading location - IP/workstation name: [email or web address]
[2020-08-19 18:21] LABS: CREATINE KINASE MB 2.22 ng/mL (<4.55); TROPONIN I < 0.012 ng/mL
[2020-08-19 19:51] LABS: ABSOLUTE EOSINOPHILS # (AUTO) 0.1 10^3/uL (0.0-0.6); ABSOLUTE LYMPHOCYTES (AUTO) 1.2 10^3/uL (0.5-4.7); ABSOLUTE MONOCYTES (AUTO) 0.5 10^3/uL (0.1-1.4); ABSOLUTE NEUT (AUTO) 2.2 10^3/uL (1.7-8.2); BASOPHILS % (AUTO) 0.5 % (0-2); EOSINOPHILS % (AUTO) 2.8 % (0-6); HEMATOCRIT 36.1 % (37.9-51.0); HEMOGLOBIN 12.6 g/dL (13.5-17.0); LYMPHOCYTES % (AUTO) 30.3 % (13-45); MEAN CORPUSCULAR HEMOGLOBIN 28.1 pg (27.0-33.4); MEAN CORPUSCULAR HGB CONC 34.9 g/dL (32.0-36.0); MEAN CORPUSCULAR VOLUME 81 fl (80-97); MONOCYTES % (AUTO) 11.9 % (3-13); RED BLOOD COUNT 4.48 10^6/uL (4.35-5.55); RED CELL DISTRIBUTION WIDTH 16.5 % (11.5-14.0); SEGMENTED NEUTROPHILS % (AUTO) 54.5 % (42-78); TOTAL CELLS COUNTED % (AUTO) 100 %; WHITE BLOOD COUNT 4.1 10^3/uL (4.0-10.5)
[2020-08-19 19:53] LABS: PLATELET COUNT 71 10^3/uL (150-450)
--- NOTE | 2020-08-19 21:02 | EKG REPORT ---
SEVERITY:- NORMAL ECG - SINUS RHYTHM : Confirmed by: Vy Mcclain 19-Aug-2020 21:01:09
[2020-08-19 21:10] VITALS: BP 121/57
== END 2020-08-19 21:27 | disposition home or self-care (01) ==
LOC: ER 17:17
DX: I25.10 Atherosclerotic heart disease of native coronary artery without angina pectoris (principal); R07.9 Chest pain, unspecified; M79.602 Pain in left arm; R06.02 Shortness of breath; I10 Essential (primary) hypertension; E11.9 Type 2 diabetes mellitus without complications; R53.1 Weakness; Z86.711 Personal history of pulmonary embolism; Z95.5 Presence of coronary angioplasty implant and graft; Z95.1 Presence of aortocoronary bypass graft; Z79.899 Other long term (current) drug therapy; Z79.82 Long term (current) use of aspirin; Z79.84 Long term (current) use of oral hypoglycemic drugs; Z79.02 Long term (current) use of antithrombotics/antiplatelets; Z91.041 Radiographic dye allergy status
CPT/HCPCS: 36415; 71045; 80053; 82550; 82553; 84484; 85025; 93005; 93010; 99285

== ENCOUNTER 2020-10-13 04:32 | Emergency (ER) | payer MEDICAID ==
[2020-10-13 04:43] VITALS: BP 164/71
[2020-10-13 05:52] LABS: APPEARANCE,URINE CLOUDY; BILIRUBIN,URINE NEGATIVE (NEGATIVE); COLOR,URINE AMBER; GLUCOSE, URINE NEGATIVE (NEGATIVE); KETONES,URINE NEGATIVE (NEGATIVE); LEUKOCYTE ESTERASE,URINE NEGATIVE (NEGATIVE); NITRITE,URINE NEGATIVE (NEGATIVE); PROTEIN,URINE 30 mg/dL (NEGATIVE); URINE SPECIFIC GRAVITY 1.019
--- OUTSIDE RECORDS SUMMARY | 2020-10-14 15:15 | XMS REPORT ---
:1965 [facility] Address [facility] [address] [place] [id number] Care Team Providers Name Role Phone RADHA HOGUE Primary Care Physician Unavailable SUSAN HOGUE Attending Clinician Unavailable Mykel Attending Clinician Unavailable Erlin Attending Clinician Unavailable Allergies, Adverse Reactions, Alerts Allergy Name Allergy Status Severity Reaction(s) Onset Inactive Treat ing Comments Type Date Date Clinician Iodine And Propensity Active Iodide to adverse 2-24 Containing reactions 00:00: Products to drug 00 Medications Ordered Filled Start Stop Current Ordering Indication Dosage Frequency Signature Comments Components Medication Medication Date Date Medication? Clinician (SIG) Name Name ticagrelor 2018-12 Yes 90mg Q.5D Take 1 Tab (BRILINTA) 1-15 by mouth 90 mg Oral 00:00: twice a Tablet 00 day. naproxen 2018-12 Yes 250mg Q8H Take 1 Tab (NAPROSYN) 0-10 by mouth 250 mg Oral 00:00: every 8 Tablet 00 hours as needed. tamsulosin Yes .4mg QD Take 1 Cap (FLOMAX) 7-25 by mouth 0.4 mg Oral 00:00: daily. Capsule 00 traMADol 2018-0 Yes 50mg Q6H Take 1 Tab (ULTRAM) 50 7-25 by mouth mg Oral 00:00: every 6 Tablet 00 hours as needed for Pain. acetaminoph 0 Yes 650mg Q4H Take 2 en 7-24 Tabs by (TYLENOL) 00:00: mouth 325 mg Oral 00 every 4 Tablet hours as needed. metoprolol 2018- Yes 50mg Q.5D Take 1 Tab tartrate 7-24 by mouth (LOPRESSOR) 00:00: twice a 50 mg Oral 00 day. Tablet Discharge Yes as Equipment: 7-24 directed. Glucose 00:00: Use to Monitor 00 check (HOME USE) blood sugar as directed with insulin 3 times a day, and for symptoms of high or low blood sugar. Pharmacist to determine brand based on insurance approvalIn sulin Requiring ICD - 9 250.0 / ICD-10 E11.9 Discharge Yes as Equipment: 7-24 directed. Glucose 00:00: Use to Test Strips 00 check (HOME USE) blood sugar as directed with insulin 3 times a day, and for symptoms of high or low blood sugar. Pharmacist to determine brand based on insurance approval(1 box of 100 strips)Ins ulin Requiring ICD - 9 250.0 / ICD-10 E11.9 Discharge Yes as Equipment: 7-24 directed. Lancets 00:00: Use to (HOME USE) 00 check blood sugar as directed with insulin 3 times a day, and for symptoms of high or low blood sugar. Pharmacist to determine brand based on insurance approvalIn sulin Requiring ICD - 9 250.0 / ICD-10 E11.9 (100 Lancets) Discharge Yes as Equipment: 7-24 directed. Insulin 00:00: Use with Syringes 00 insulin up (HOME USE) to 4 times a day as needed.Pha rmacist to determine brand based on insurance approval. Insulin Syringe - Needle U-100 mL 30G x " (For Doses LESS than 50 units)(1 box of 100) DOK 100 mg No DOK 100 mg capsule capsule TAKE 1 TAKE 1 CAPSULE BY CAPSULE BY MOUTH TWICE MOUTH DAILY TWICE DAILY furosemide No furosemide 20 mg 20 mg tablet TAKE tablet 1 TABLET BY TAKE 1 MOUTH TWICE TABLET BY DAILY AT 6 MOUTH AM AND 4 PM TWICE DAILY AT 6 AM AND 4 PM metformin No metformin 1,000 mg 1,000 mg tablet TAKE tablet 1 TABLET BY TAKE 1 MOUTH TWICE TABLET BY DAILY MOUTH TWICE DAILY metoprolol No metoprolol tartrate 50 tartrate mg tablet 50 mg TAKE 1 tablet TABLET BY TAKE 1 MOUTH TWICE TABLET BY DAILY MOUTH TWICE DAILY naproxen No naproxen 250 mg 250 mg tablet TAKE tablet 1 TABLET BY TAKE 1 MOUTH EVERY TABLET BY 8 HOURS MOUTH NEEDED EVERY 8 HOURS NEEDED potassium No potassium chloride ER chloride 20 mEq ER 20 mEq tablet,exte tablet,ext nded ended release(par release(pa t/cryst) rt/cryst) TAKE 1 TAKE 1 TABLET BY TABLET BY MOUTH ONCE MOUTH ONCE DAILY DAILY tamsulosin No tamsulosin 0.4 mg 0.4 mg capsule capsule TAKE 1 TAKE 1 CAPSULE BY CAPSULE BY MOUTH ONCE MOUTH ONCE DAILY DAILY tizanidine No tizanidine 2 mg tablet 2 mg TAKE 1 tablet TABLET BY TAKE 1 MOUTH EVERY TABLET BY 6 TO 8 MOUTH HOURS EVERY 6 TO NEEDED FOR 8 HOURS MUSCLE NEEDED FOR RELAXANT MUSCLE RELAXANT tramadol 50 No tramadol mg tablet 50 mg TAKE 1 tablet TABLET BY TAKE 1 MOUTH EVERY TABLET BY 6 HOURS MOUTH NEEDED FOR EVERY 6 PAIN HOURS NEEDED FOR PAIN amiodarone No amiodarone 200 mg 200 mg tablet TAKE tablet 1 TABLET BY TAKE 1 MOUTH TWICE TABLET BY DAILY FOR MOUTH 14 DAYS TWICE THEN TAKE 1 DAILY FOR TABLET ONCE 14 DAYS DAILY UNTIL THEN TAKE YOUR 1 TABLET APPOINTMENT ONCE DAILY IN THE UNTIL [facility] atorvastati No atorvastat n 40 mg in 40 mg tablet TAKE tablet 1 TABLET BY TAKE 1 MOUTH AT TABLET BY BEDTIME MOUTH AT BEDTIME Brilinta 90 No Brilinta mg tablet 90 mg TAKE 1 tablet TABLET BY TAKE 1 MOUTH TWICE TABLET BY DAILY MOUTH TWICE DAILY metFORMIN Yes 1000mg Take 1,000 (GLUCOPHAGE mg by ) 1,000 mg mouth Oral Tablet twice a day with meals. aspirin 81 Yes 81mg QD Take 81 mg mg Oral by mouth Tablet, daily. Delayed Release (E.C.) atorvastati Yes 40mg Take 40 mg n (LIPITOR) by mouth 40 mg Oral at Tablet bedtime. 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 Active fibrillatio fibrillatio 06-21 n n 00:00: 00 Plavix Plavix 48309595 Active resistance resistance 06-20 00:00: 00 06/19/2019 06/19/2019 [id number] Active S/P CABG x S/P CABG x 06-19 3 (JOHN to 3 (JOHN to 00:00: LAD, SVGs LAD, SVGs 00 to PDA and to PDA and L PL), EVH L PL), EVH L leg EF L leg EF 60-65% 60-65% Obese Obese [id number] Active 06-15 00:00: 00 Hypertensio Hypertensio 49923179 Active n n High High 59418554 Active cholesterol cholesterol Diabetes Diabetes 14330997 Active Coronary Coronary 50632187 Active artery artery disease disease Fatty liver Fatty liver 33275960 Active Esophageal Esophageal 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 Active varices varices without without bleeding bleeding Chronic Chronic 34094426 Active diastolic diastolic (congestive (congestive ) heart ) heart failure failure History of History of 79586465 Active alcohol alcohol abuse abuse Unstable Unstable [id number] Resolve 2019-06-24 2019-06-24 angina angina d 7- 00:00:00 11:18:29 00:00: 00 Hyperkalemi Hyperkalemi [id number] Resolve 2019-06-20 2019-06-20 a a d 06-20 00:00:00 14:00:16 00:00: 00 Thrombocyto Thrombocyto 33476806 Resolve 2019-06-20 2019-06-20 penia penia d 00:00:00 14:00:12 Procedures Procedure Date / Time Performed Performing Clinician Rose Mary e XR, foot 2020-06-09 00:00:00 OFFICE OUTPATIENT VISIT 15 MINUTES 2017-02-28 08:23:00 OFFICE OUTPATIENT VISIT 15 MINUTES 2016-06-12 13:42:00 INITIAL PULSE OXIMETRY ([id number]) 2016-04-11 12:44:00 OFFICE OUTPATIENT VISIT 10 MINUTES 2016-04-11 12:42:00 OFFICE OUTPATIENT VISIT 15 MINUTES 2016-04-05 14:00:00 OFFICE OUTPATIENT NEW 30 MINUTES 2016-03-05 14:16:00 Results Test Description Test Time Test Comments Text Results Atomic Results Result Comments Hgb A1c with eAG Estimation ([id number]) 2017-03-01 00:00:00 Test Item Value Reference Range Comments Estim. Avg Glu (eAG) (test code = 92278-3) 137 mg/dL Hemoglobin A1c (test code = 4548-4) 6.4 % 4.8-5.6 Comp. Metabolic Panel ([id number]) (11520)2017-03-01 00:00:00 Test Item Value Reference Range Comments Alkaline Phosphatase, S (test code = 6768-6) 128 IU/L 39- 117 ALT (SGPT) (test code = 1742-6) 34 IU/L 0-44 A/G Ratio (test code = 1759-0) 1.4 1.2-2.2 Globulin, Total (test code = 69826-0) 3.0 g/dL 1.5-4.5 AST (SGOT) (test code = 1920-8) 55 IU/L 0-40 Bilirubin, Total (test code = 1975-2) 0.5 mg/dL 0.0-1.2 Glucose, Serum (test code = 2345-7) 120 mg/dL 65-99 eGFR If Africn Am (test code = 91614-3) 127 mL/min/1.73 >59 Chloride, Serum (test code = 2075-0) 98 mmol/L 96-106 Albumin, Serum (test code = 1751-7) 4.3 g/dL 3.5-5.5 Protein, Total, Serum (test code = 2885-2) 7.3 g/dL 6.0-8 .5 Calcium, Serum (test code = 77897-7) 9.2 mg/dL 8.7-10.2 eGFR If NonAfricn Am (test code = 80369-5) 110 mL/min/1.73 >59 Carbon Dioxide, Total (test code = 8-9) 20 mmol/L 18-29 BUN (test code = 3094-0) 9 mg/dL 6-24 Creatinine, Serum (test code = 2160-0) 0.66 mg/dL 0.76-1.27 Sodium, Serum (test code = 2951-2) 138 mmol/L 134-144 BUN/Creatinine Ratio (test code = 3097-3) 14 9-20 Potassium, Serum (test code = 2823-3) 4.1 mmol/L 3.5-5.2 Lipid Panel w/ Chol/HDL Ratio ([id number])2017-03-01 00:00:00 Test Item Value Reference Range Comments LDL Cholesterol Calc (test code = 53095-7) 108 mg/dL 0-99 VLDL Cholesterol Andrew (test code = 30477-5) 29 mg/dL 5-40 T. Chol/HDL Ratio (test code = 9830-1) 5.0 ratio units 0.0-5.0 Triglycerides (test code = 2571-8) 143 mg/dL 0-149 Cholesterol, Total (test code = 2093-3) 171 mg/dL 100-199 HDL Cholesterol (test code = 2085-9) 34 mg/dL >39 MICROALBUMIN, Urine ([id number]) (48112)2016-03-06 00:00:00 Test Item Value Reference Range Comments Microalbumin (test code = 16455-6) 2.8 mg/dL <2.0 Hemoglobin A1c (Y97034) (21666)2016-03-06 00:00:00 Test Item Value Reference Range Comments Hemoglobin A1C (test code = 4548-4) 7.0 % <5.7 Estimated Average Glucose (test code = 20075-9) 154 mg/dL <117 TSH (THYROID STIMULATING HORMONE) ([id number]) (13795)2016-03-06 00:00:00 Test Item Value Reference Range Comments TSH (test code = 3016-3) 1.112 uIU/mL 0.350-4.500 CMP w/ ESTIMATED GFR (S2402) (15024)2016-03-06 00:00:00 Test Item Value Reference Range Comments Potassium (test code = 2823-3) 4.2 mEq/L 3.5-5.3 Glucose (test code = 2345-7) 153 mg/dL 70-99 Sodium (test code = 2951-2) 136 mEq/L 135-145 BUN (test code = 3094-0) 5 mg/dL 6-23 Chloride (test code = 5-0) 102 mEq/L 96-112 CO2 (test code = 8-9) 23 mEq/L 19-32 Creatinine (test code = 2160-0) 0.54 mg/dL 0.50-1.35 Albumin (test code = 1751-7) 4.0 g/dL 3.5-5.2 Calcium (test code = 95839-7) 8.8 mg/dL 8.4-10.5 ALT/SGPT (test code = 1742-6) 42 U/L 0-53 Alkaline Phosphatase (test code = 6768-6) 139 U/L 39-117 Bilirubin, Total (test code = 1974-2) 0.6 mg/dL 0.2-1.2 Est GFR, NonAfrican Moldovan (test code = >89 mL/min 06983-4) Total Protein (test code = 2885-2) 7.5 g/dL 6.0-8.3 AST/SGOT (test code = 1920-8) 48 U/L 0-37 Est GFR, (test code = 90317-3) >89 mL/min LIPID PANEL ([id number]) (40832)2016-03-06 00:00:00 Test Item Value Reference Range Comments Cholesterol (test code = 2093-3) 233 mg/dL 0-200 VLDL Cholesterol (Calc) (test code = 40231-5) 42 mg/dL 0- 40 Triglyceride (test code = 2571-8) 210 mg/dL <150 LDL Cholesterol (Calc) (test code = 86166-6) 168 mg/dL 0-9 9 Total Chol/HDL Ratio (test code = 9830-1) 10.1 Ratio HDL Cholesterol (test code = 2085-9) 23 mg/dL >=40 CBC w/ Diff ([id number]) (48677)2016-03-06 00:00:00 Test Item Value Reference Range Comments WBC (test code = 6690-2) 5.4 K/uL 4.0-10.5 MCHC (test code = 786-4) 34.0 g/dL 30.0-36.0 Lymph % (test code = 736-9) 35 % 12-46 RDW (test code = 788-0) 14.2 % 11.5-15.5 Absolute Gran (test code = 2.9 K/uL 1.7-7.7 751-8) MPV (test code = 20308-9) 11.5 fL 8.6-12.4 Granulocyte % (test code = 53 % 43-77 770-8) Hemoglobin (test code = 718-7) 15.5 g/dL 13.0-17.0 Absolute Lymph (test code = 1.9 K/uL 0.7-4.0 731-0) RBC (test code = 789-8) 5.20 MIL/uL 4.22-5.81 MCV (test code = 787-2) 87.7 fL 78.0-100.0 Platelet Count (test code = 128 K/uL 150-400 777-3) Hematocrit (test code = 4544-3) 45.6 % 39.0-52.0 MCH (test code = 785-6) 29.8 pg 26.0-34.0 Smear Review (test code = Criteria for review not met 5909-7) [place] % (test code = 5905-5) 10 % 3-12 Baso % (test code = 706-2) 0 % 0-1 Absolute Baso (test code = 0.0 K/uL 0.0-0.1 704-7) Absolute Eos (test code = 711-2) 0.1 K/uL 0.0-0.7 Eos % (test code = 713-8) 2 % 0-5 Absolute [place] (test code = 0.5 K/uL 0.1-1.0 742-7) PSA (PROSTATE SPECIFIC ANTIGEN) ([id number]) (84158)2016-03-06 00:00:00 Test Item Value Reference Range Comments PSA (test code = 2857-1) 0.41 ng/mL <=4.00 Assessments Condition Name Status Diagnosis Date Treating Clinici an Contusion of left foot Active 2020-06-09 14:28:37 Foot pain Active 2020-06-09 14:07:12 Contact dermatitis, allergic Active Metatarsalgia Active Metatarsalgia Active Sinusitis Active Cough Active Sinusitis Active Cough Active Sinusitis Active Cough Active Shortness of breath at rest Active Adult body mass index 39.0-39.9 Active Shortness of breath at rest Active Adult body mass index 39.0-39.9 Active Shortness of breath at rest Active Adult body mass index 39.0-39.9 Active Hyperlipidemia Active Hyperlipidemia Active Hyperlipidemia Active Hyperlipidemia Active Erectile dysfunction Active Erectile dysfunction Active Erectile dysfunction Active Erectile dysfunction Active Erectile dysfunction Active Screening PSA (prostate specific Active antigen) Screening PSA (prostate specific Active antigen) Screening PSA (prostate specific Active antigen) Screening PSA (prostate specific Active antigen) Screening PSA (prostate specific Active antigen) Hypertension Active Hypertension Active Hypertension Active Hypertension Active Hypertension Active Encounter to establish care Active Encounter to establish care Active Encounter to establish care Active Encounter to establish care Active Encounter to establish care Active Obesity Active Obesity Active Obesity Active Obesity Active Obesity Active Type 2 diabetes mellitus Active Type 2 diabetes mellitus Active Type 2 diabetes mellitus Active Type 2 diabetes mellitus Active Type 2 diabetes mellitus Active Body mass index (BMI) of 40.0-44.9 in Active adult Body mass index (BMI) of 40.0-44.9 in Active adult Body mass index (BMI) of 40.0-44.9 in Active adult Body mass index (BMI) of 40.0-44.9 in Active adult Body mass index (BMI) of 40.0-44.9 in Active adult Encounter for health education Active Encounter for health education Active Encounter for health education Active Encounter for health education Active Encounter for health education Active Abnormal levels of other serum enzymes Active Encounters Start End Encounter Admission Attending Care Care Encounter Date/Time Date/Time Type Type Clinicians Facility Department ID 2020-06-09 2020-06-09 [facility] [id number] 00:00:00 00:00:00 danisha Carcamo P.A. , P.A. [id number] MD: [address] [facility] [address], [place] [address], Ph. 2020-02-29 2020-02-29 Outpatient [facility]IDANT VIDANT [id number] 23:59:00 23:59:00 2020-02-29 2020-02-29 Outpatient Campbell HOGUE [facility] [id number] 23:59:00 23:59:00 [facility] 2020-02-18 2020-02-18 Outpatient VIDANT VIDANT [id number] 23:59:00 23:59:00 2020-02-18 2020-02-18 Outpatient Campbell HOGUE, [facility] [id number] 23:59:00 23:59:00 [facility] 2020-02-16 2020-02-16 Outpatient MYKEL, [facility] [id number] 04:00:00 04:00:00 [facility] 2019-11-06 2019-11-06 Outpatient R MYKEL, [facility] [id number] 04:00:00 04:00:00 [facility] 2018-12-05 2018-12-05 [facility] [id number] 12:20:43 12:20:43 2017-02-28 2017-02-28 Outpatient Mykel [facility] Allyssa [id number] 08:23:00 08:23:00 [facility] 2016-06-12 2016-06-12 Outpatient Erlin [facility] Allyssa [id number] 13:42:00 13:42:00 [facility] 2016-04-11 2016-04-11 Outpatient LOUANN Hogue [id number] 12:42:00 12:42:00 [facility] 2016-04-05 2016-04-05 Outpatient LOUANN Hogue [id number] 14:00:00 14:00:00 [facility] 2016-03-05 2016-03-05 Outpatient LOUANN Hogue [id number] 14:16:00 14:16:00 [facility] Payers Payer Name Policy Policy Number Effective Expiration Type Date Date MEDICAIDMEDICAIDxxxxxxxxxxEffective xxxxxxxxxx for all [phone] MEDICAID [id number] Plan of Treatment Planned Activity Planned Date Details Comments Future Scheduled Test [code = ] Social History Social Habit Start Date Stop Date Comments Alcohol intake 2019-09-17 00:00:00 2019-09-17 00:00:00 Alcohol Comment 2019-06-14 00:00:00 2019-06-14 00:00:00 Smoking Status Start Date Stop Date Unknown If Ever Smoked History of tobacco use Never smoker 2019-09-17 00:00:00 Vital Signs This patient has no known vital signs. Hospital Discharge Instructions 1. Contusion of left foot 2. Foot pain XR, foot Discussion Note: None recorded. Patient educational handouts: No information available.
== END 2020-10-13 09:53 | disposition left against medical advice (07) ==
LOC: ER 04:32
DX: Z53.21 Procedure and treatment not carried out due to patient leaving prior to being seen by health care provider (principal)
CPT/HCPCS: 81001